=== PATIENT | female | born 1955 | race Caucasian/White ===

== ENCOUNTER → 2020-08-03 13:44 | Outpatient (BNVA) | payer MEDICARE, MEDICAID, SELFPAY | PROVIDERS: PCP Internal Medicine; Visit Provider Internal Medicine | DX: I26.99 Other pulmonary embolism without acute cor pulmonale (principal); Z51.81 Encounter for therapeutic drug level monitoring; Z79.01 Long term (current) use of anticoagulants | CPT/HCPCS: 85610; 99211 ==

== ENCOUNTER 2020-09-21 15:31 | Outpatient (REF) | payer MEDICARE, MEDICAID, SELFPAY ==
[2020-09-21 17:14] LABS: MANUAL DIFF FLAG NO
[2020-09-21 17:28] LABS: Basophils Absolute Auto 0.1 X10*3/uL (0.0-0.2); Basophils Percent Auto 0.8 % (0-2); Eosinophils Absolute Auto 0.1 X10*3/uL (0.0-0.4); Hematocrit 40.8 % (37-47); Hemoglobin 13.6 g/dl (12.0-16.0); Imm Gran Abs Auto 0.02 X10*3/uL (0.00-0.03); Imm Gran Pct Auto 0.3 % (0.0-0.4); Lymphocytes Absolute Auto 2.4 X10*3/uL (1.2-4.9); Lymphocytes Percent Auto 38.9 % (20-40); Mean Corpuscular HGB Conc 33.3 g/dl (31.0-35.0); Mean Corpuscular Hemoglobin 29.5 pg (27.0-33.0); Mean Corpuscular Volume 88.5 fL (80-98); Mean Platelet Volume 10.8 fL (9.4-12.3); Monocytes Absolute Auto 0.4 X10*3/uL (0.1-1.2); Monocytes Percent Auto 6.1 % (2-11); Neutrophils Absolute Auto 3.1 X10*3/uL (2.0-8.3); Neutrophils Percent Auto 51.9 % (45-73); Platelet Count 238 X10*3/uL (160-400); Red Blood Count 4.61 X10*6/uL (4.20-5.50); Red Cell Distribution Width 13.2 % (11.0-16.0)
[2020-09-21 17:44] LABS: D Dimer < 200 NG/ML
[2020-09-21 18:14] LABS: Alanine Aminotransferase 25 U/L (0-31); Albumin Level 4.2 g/dL (3.5-5.0); Alkaline Phosphatase 54 U/L (39-117); Anion Gap 13 (12-20); Aspartate Amino Transferase 26 U/L (5-31); Bilirubin Total 0.6 mg/dL (0.0-1.0); Blood Urea Nitrogen 16 mg/dL (9-16); Calcium 9.2 mg/dL (8.4-10.2); Carbon Dioxide 26 mmol/L (22-29); Chloride 107 mmol/L (96-108); Estimated Glomerular Filt Rate 54; Glucose Random 93 mg/dL (60-115); Potassium 4.6 mmol/l (3.3-5.1); Sodium 141 mmol/L (135-145); Total Protein 7.3 g/dL (6.5-8.0)
[2020-09-22 16:22] LABS: Ferritin 193 ng/mL (10-250)
== END 2020-09-21 15:32 | disposition home or self-care (01) ==
LOC: CF 15:31
PROVIDERS: PCP Internal Medicine; Visit Provider Internal Medicine
DX: D68.61 Antiphospholipid syndrome (principal); I26.99 Other pulmonary embolism without acute cor pulmonale; Z51.81 Encounter for therapeutic drug level monitoring; Z79.01 Long term (current) use of anticoagulants
CPT/HCPCS: 36415; 80053; 82728; 85025; 85379; 85610; 99211

== ENCOUNTER → 2020-10-02 13:49 | Outpatient (BNVA) | payer MEDICARE, MEDICAID, SELFPAY | PROVIDERS: PCP Internal Medicine; Visit Provider Internal Medicine | DX: I26.99 Other pulmonary embolism without acute cor pulmonale (principal); Z51.81 Encounter for therapeutic drug level monitoring; Z79.01 Long term (current) use of anticoagulants | CPT/HCPCS: 85610; 99211 ==

== ENCOUNTER → 2020-10-16 14:54 | Outpatient (BNVA) | payer MEDICARE, MEDICAID, SELFPAY | PROVIDERS: PCP Internal Medicine; Visit Provider Internal Medicine | DX: I26.99 Other pulmonary embolism without acute cor pulmonale (principal); Z51.81 Encounter for therapeutic drug level monitoring; Z79.01 Long term (current) use of anticoagulants | CPT/HCPCS: 85610; 99211 ==

== ENCOUNTER → 2020-11-18 15:49 | Outpatient (BNVA) | payer MEDICARE, MEDICAID, SELFPAY | PROVIDERS: PCP Internal Medicine; Visit Provider Internal Medicine | DX: I26.99 Other pulmonary embolism without acute cor pulmonale (principal); Z51.81 Encounter for therapeutic drug level monitoring; Z79.01 Long term (current) use of anticoagulants | CPT/HCPCS: 85610; 99211 ==

== ENCOUNTER → 2020-11-25 15:30 | Outpatient (BNVA) | payer MEDICARE, MEDICAID, SELFPAY | PROVIDERS: PCP Internal Medicine; Visit Provider Internal Medicine | DX: I26.99 Other pulmonary embolism without acute cor pulmonale (principal); Z51.81 Encounter for therapeutic drug level monitoring; Z79.01 Long term (current) use of anticoagulants | CPT/HCPCS: 85610; 99211 ==

== ENCOUNTER → 2020-12-29 15:22 | Outpatient (BNVA) | payer MEDICARE, MEDICAID, SELFPAY | PROVIDERS: PCP Internal Medicine; Visit Provider Internal Medicine | DX: I26.99 Other pulmonary embolism without acute cor pulmonale (principal); Z79.01 Long term (current) use of anticoagulants; Z51.81 Encounter for therapeutic drug level monitoring | CPT/HCPCS: 85610; 99211 ==

== ENCOUNTER → 2021-01-25 15:00 | Outpatient (BNVA) | payer MEDICARE, MEDICAID, SELFPAY | PROVIDERS: PCP Internal Medicine; Visit Provider Internal Medicine | DX: I26.99 Other pulmonary embolism without acute cor pulmonale (principal); Z51.81 Encounter for therapeutic drug level monitoring; Z79.01 Long term (current) use of anticoagulants | CPT/HCPCS: 85610; 99211 ==

== ENCOUNTER → 2021-03-05 14:32 | Outpatient (BNVA) | payer MEDICARE, MEDICAID, SELFPAY | PROVIDERS: PCP Internal Medicine; Visit Provider Internal Medicine | DX: I26.99 Other pulmonary embolism without acute cor pulmonale (principal); Z51.81 Encounter for therapeutic drug level monitoring; Z79.01 Long term (current) use of anticoagulants | CPT/HCPCS: 85610; 99211 ==

== ENCOUNTER → 2021-04-22 10:20 | Outpatient (BNV) | payer MEDICARE, MEDICAID, SELFPAY | PROVIDERS: PCP Internal Medicine; Visit Provider Internal Medicine Medical Oncology | DX: R91.8 Other nonspecific abnormal finding of lung field (principal); Z86.711 Personal history of pulmonary embolism; Z79.01 Long term (current) use of anticoagulants | CPT/HCPCS: 99213; 99214 ==

== ENCOUNTER → 2021-04-28 13:19 | Outpatient (BNVA) | payer MEDICARE, MEDICAID, SELFPAY | PROVIDERS: PCP Internal Medicine; Visit Provider Internal Medicine | DX: I26.99 Other pulmonary embolism without acute cor pulmonale (principal); Z51.81 Encounter for therapeutic drug level monitoring; Z79.01 Long term (current) use of anticoagulants | CPT/HCPCS: 85610; 99211 ==

== ENCOUNTER → 2021-05-27 13:02 | Outpatient (BNVA) | payer MEDICARE, MEDICAID, SELFPAY | PROVIDERS: PCP Internal Medicine; Visit Provider Internal Medicine | DX: I26.99 Other pulmonary embolism without acute cor pulmonale (principal); Z51.81 Encounter for therapeutic drug level monitoring; Z79.01 Long term (current) use of anticoagulants | CPT/HCPCS: 85610; 99211 ==

== ENCOUNTER → 2021-06-24 15:35 | Outpatient (BNVA) | payer MEDICARE, MEDICAID, SELFPAY | PROVIDERS: PCP Internal Medicine; Visit Provider Internal Medicine | DX: I26.99 Other pulmonary embolism without acute cor pulmonale (principal); Z51.81 Encounter for therapeutic drug level monitoring; Z79.01 Long term (current) use of anticoagulants | CPT/HCPCS: 85610; 99211 ==

== ENCOUNTER → 2021-07-22 15:48 | Outpatient (BNVA) | payer MEDICARE, MEDICAID, SELFPAY | PROVIDERS: PCP Internal Medicine; Visit Provider Internal Medicine | DX: I26.99 Other pulmonary embolism without acute cor pulmonale (principal); Z51.81 Encounter for therapeutic drug level monitoring; Z79.01 Long term (current) use of anticoagulants | CPT/HCPCS: 85610; 99211 ==

== ENCOUNTER → 2021-08-05 15:07 | Outpatient (BNVA) | payer MEDICARE, MEDICAID, SELFPAY | PROVIDERS: PCP Internal Medicine; Visit Provider Internal Medicine | DX: I26.99 Other pulmonary embolism without acute cor pulmonale (principal); Z51.81 Encounter for therapeutic drug level monitoring; Z79.01 Long term (current) use of anticoagulants | CPT/HCPCS: 85610; 99211 ==

== ENCOUNTER → 2021-09-06 14:10 | Outpatient (BNVA) | payer MEDICARE, MEDICAID, SELFPAY | PROVIDERS: PCP Internal Medicine; Visit Provider Internal Medicine | DX: I26.99 Other pulmonary embolism without acute cor pulmonale (principal); Z51.81 Encounter for therapeutic drug level monitoring; Z79.01 Long term (current) use of anticoagulants | CPT/HCPCS: 85610; 99211 ==

== ENCOUNTER → 2021-09-21 14:55 | Outpatient (BNVA) | payer MEDICARE, MEDICAID, SELFPAY | PROVIDERS: PCP Internal Medicine; Visit Provider Internal Medicine | DX: I26.99 Other pulmonary embolism without acute cor pulmonale (principal); Z51.81 Encounter for therapeutic drug level monitoring; Z79.01 Long term (current) use of anticoagulants | CPT/HCPCS: 85610; 99211 ==

== ENCOUNTER → 2021-10-21 13:06 | Outpatient (BNVA) | payer MEDICARE, MEDICAID, SELFPAY | PROVIDERS: PCP Internal Medicine; Visit Provider Internal Medicine | DX: I26.99 Other pulmonary embolism without acute cor pulmonale (principal); Z51.81 Encounter for therapeutic drug level monitoring; Z79.01 Long term (current) use of anticoagulants | CPT/HCPCS: 85610; 99211 ==

== ENCOUNTER 2021-11-05 12:12 | Outpatient (REF) | payer MEDICARE, MEDICAID, SELFPAY ==
--- NOTE | 2021-11-05 16:17 | MHC.AU.HAS ---
Hearing Aid Evaluation Date of Visit: 11/05/21 Historical Information: Description of Hearing: Mild sloping to severe sensorineural hearing loss bilaterally. Summary: Binaural amplification is recommended to help facilitate improved communication based on the type and degree of Ms. Velez's hearing loss and her shared listening needs. Discussed hearing aid options. She is interested in rechargeable [id number] style hearing aids. Hearing Aid Prescription: Based on the individual?s shared listening needs, communication environments, dexterity, desire for connectivity, and personal preferences, the following prescription for amplification has been made: Right ear: Laboratory Analyst: Phonak Model: Audeo P70-R Battery Size: Rechargeable Color: P4 Outside Plant Engineer: 1 P Type of Dome: Power Left ear: Left ear prescription to be same as Right Hearing Aid above: Laboratory Analyst: Phonak Model: Audeo P70-R Battery Size: Rechargeable Color: P4 Outside Plant Engineer: 1 P Type of Dome: Power Plan of Care: Medical Clearance to be requested from PCP/ENT. Hearing Instrument Fitting to be scheduled when materials arrive. Hearing aids will be ordered once medical clearance is received. Primary Diagnosis: H90.3 Bilateral Sensorineural Hearing Loss Signature: Provider: Ana Lilia Ramirez, CCC-A
--- NOTE | 2021-11-05 16:18 | MHC.AU.ANR ---
Adult Audiological Evaluation Date of Visit: 11/05/21 Reason for Appointment: Audiological evaluation due to concern for decreased hearing and history of hearing loss. Ms. Velez reports that she has previously been diagnosed with hearing loss bilaterally and previously used hearing aids that she obtained through a dispenser in 2013. She notes that she has never been happy with these aids and has been hesitant to try a new pair. She feels her hearing has gradually been getting worse. She notes that her hearing loss has been impacting her social life significantly. 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 Skin cancer treated surgically. Antiphospholipid syndrome, an autoimmune disorder which caused blood clots in her lungs on two occasions. Internal bleeding leading to intestinal surgery in 2013. Allergies: Penicillins Medication List: Warfarin, Metoprolol, Paxil, Ativan PRN Otoscopy: Right Ear: Unremarkable Left Ear: Unremarkable Tympanometry: Tympanometry performed due to: To assess integrity of the middle ear system Right Ear: Normal Middle Ear System (Type A) Left Ear: Normal Middle Ear System (Type A) Hearing Evaluation: Transducer(s) Used: Insert Earphones, Bone Conduction Method: Conventional Audiometry Stimuli Used: Pure Tones Right Ear: Description of Hearing: Mild sloping to severe sensorineural hearing loss from 250-8000 Hz. Left Ear: Description of Hearing: Mild sloping to severe sensorineural hearing loss from 250-8000 Hz. Speech Recognition Threshold (SRT): Method Used: Monitored Live Voice Stimuli Used: Spondee Words Right Ear: 40 dBHL Left Ear: 40 dBHL Word Discrimination: Method: Recorded Lists Word Lists Used: NU-6 Right Ear: 56% at 80 dBHL, 72% 90 dBHL Left Ear: 64% at 90 dBHL Recommendations: Audiological re-evaluation in one year. Trial with amplification is recommended. Medical clearance from a physician is required before fitting. Patient's current health insurance provides hearing aid coverage. Discussed hearing aid options. She is interested in rechargeable VIOLA style hearing aids. Hearing aids will be ordered once medical clearance is received. Diagnosis: Primary Diagnosis: H90.3 Bilateral Sensorineural Hearing Loss Services Performed: Services Performed: Comprehensive Audiological Evaluation (CPT 89348) Tympanometry (CPT 83950) Signature: Provider: Ana Lilia Ramirez, CCC-A
--- NOTE | 2021-11-12 11:19 | MHC.AU.MED ---
Medical Clearance for Hearing Instrumentation Date: 11/12/21 Patient Name: Kacey Velez Date of : 1955 Referring Provider: Vincent Mclaughlin MD We have seen your patient on 11/05/21 and have determined that they are a candidate for amplification (See accompanying report). Specifically, they would benefit from: Hearing aid use in both ears There is a statute that addresses Medical Evaluation Requirements prior to fitting a patient with a hearing aid. According to [place] statute 265 CMR:6.03(1), (a) General. Except as provided in 265 CMR 6.03(1)(b), a deaf and hard of hearing teacher shall not sell a hearing aid unless the prospective user has presented to the deaf and hard of hearing teacher a written statement signed by a licensed physician that states that the patient's hearing loss has been medically evaluated and the patient may be considered a candidate for a hearing aid. The medical evaluation must have taken place within the preceding six months. Please note: Due to the [place] Statute referenced above, we cannot accept a signature other than that of a licensed physician. ELECTRICAL TESTER BATTERY and PA signatures cannot be accepted. I am in agreement with the above recommendation. There is no medical contraindication for hearing instrumentation. Physician Signature Date Physician Name (Printed)
== END 2021-11-05 12:13 | disposition home or self-care (01) ==
LOC: HO.SH 12:12
PROVIDERS: Visit Provider Internal Medicine Medical Oncology
DX: Z46.1 Encounter for fitting and adjustment of hearing aid (principal)
CPT/HCPCS: 92557; 92567; 92591

== ENCOUNTER → 2021-11-23 09:18 | Outpatient (BNVA) | payer MEDICARE, MEDICAID, SELFPAY | PROVIDERS: PCP Internal Medicine; Visit Provider Internal Medicine | DX: I26.99 Other pulmonary embolism without acute cor pulmonale (principal); Z51.81 Encounter for therapeutic drug level monitoring; Z79.01 Long term (current) use of anticoagulants | CPT/HCPCS: 85610; 99211 ==

== ENCOUNTER 2021-12-01 09:25 | Outpatient (REF) | payer MEDICARE, MEDICAID, SELFPAY | END 2021-12-01 09:26 | disposition home or self-care (01) | LOC: HO.HAP 09:25 | PROVIDERS: Visit Provider Internal Medicine Medical Oncology | DX: Z46.1 Encounter for fitting and adjustment of hearing aid (principal); H90.3 Sensorineural hearing loss, bilateral; I26.99 Other pulmonary embolism without acute cor pulmonale; Z51.81 Encounter for therapeutic drug level monitoring; Z79.01 Long term (current) use of anticoagulants | CPT/HCPCS: 85610; 99211; V5011; V5020; V5160; V5261 ==

== ENCOUNTER 2021-12-15 13:53 | Outpatient (REF) | payer MEDICARE, MEDICAID, SELFPAY | END 2021-12-15 13:54 | disposition home or self-care (01) | LOC: HO.HAP 13:53 | PROVIDERS: Visit Provider Internal Medicine | DX: H90.3 Sensorineural hearing loss, bilateral (principal); I26.99 Other pulmonary embolism without acute cor pulmonale; Z51.81 Encounter for therapeutic drug level monitoring; Z79.01 Long term (current) use of anticoagulants | CPT/HCPCS: 85610; 99211 ==

== ENCOUNTER → 2022-01-05 15:16 | Outpatient (BNVA) | payer MEDICARE, MEDICAID, SELFPAY | PROVIDERS: PCP Internal Medicine; Visit Provider Internal Medicine | DX: I26.99 Other pulmonary embolism without acute cor pulmonale (principal); Z79.01 Long term (current) use of anticoagulants; Z51.81 Encounter for therapeutic drug level monitoring | CPT/HCPCS: 85610; 99211 ==

== ENCOUNTER → 2022-01-19 15:14 | Outpatient (BNVA) | payer MEDICARE, MEDICAID, SELFPAY | PROVIDERS: PCP Internal Medicine; Visit Provider Internal Medicine | DX: I26.99 Other pulmonary embolism without acute cor pulmonale (principal); Z79.01 Long term (current) use of anticoagulants; Z51.81 Encounter for therapeutic drug level monitoring | CPT/HCPCS: 85610; 99211 ==

== ENCOUNTER 2022-02-09 14:59 | Outpatient (REF) | payer MEDICARE, MEDICAID, SELFPAY ==
[2022-02-09 15:30] LABS: Prothrombin Time 63.9 SEC (9.9-13.0)
[2022-02-09 16:01] LABS: INTERNATIONAL NORM RATIO 5.4 (0.9-1.1)
== END 2022-02-09 15:00 | disposition home or self-care (01) ==
LOC: HO.LAB 14:59
PROVIDERS: PCP Internal Medicine; Visit Provider Internal Medicine
DX: I26.99 Other pulmonary embolism without acute cor pulmonale (principal); Z51.81 Encounter for therapeutic drug level monitoring; Z79.01 Long term (current) use of anticoagulants
CPT/HCPCS: 36415; 85610; 99212

== ENCOUNTER 2022-02-11 15:11 | Outpatient (REF) | payer MEDICARE, MEDICAID, SELFPAY ==
[2022-02-11 16:27] LABS: Anion Gap 10 (12-20); Blood Urea Nitrogen 14 mg/dL (9-16); Calcium 9.8 mg/dL (8.4-10.2); Carbon Dioxide 28 mmol/L (22-29); Chloride 108 mmol/L (96-108); Estimated Glomerular Filt Rate 55; Glucose Random 108 mg/dL (60-115); Potassium 4.3 mmol/L (3.3-5.1); Sodium 142 mmol/L (135-145)
== END 2022-02-11 15:12 | disposition home or self-care (01) ==
LOC: HO.LAB 15:11
PROVIDERS: PCP Internal Medicine; Visit Provider Internal Medicine
DX: I26.99 Other pulmonary embolism without acute cor pulmonale (principal); Z51.81 Encounter for therapeutic drug level monitoring; Z79.01 Long term (current) use of anticoagulants
CPT/HCPCS: 36415; 80048; 85610; 99211

== ENCOUNTER → 2022-02-15 15:44 | Outpatient (BNVA) | payer MEDICARE, MEDICAID, SELFPAY | PROVIDERS: PCP Internal Medicine; Visit Provider Internal Medicine | DX: I26.99 Other pulmonary embolism without acute cor pulmonale (principal); Z79.01 Long term (current) use of anticoagulants; Z51.81 Encounter for therapeutic drug level monitoring | CPT/HCPCS: 85610; 99211 ==

== ENCOUNTER → 2022-02-22 15:16 | Outpatient (BNVA) | payer MEDICARE, MEDICAID, SELFPAY | PROVIDERS: PCP Internal Medicine; Visit Provider Internal Medicine | DX: I26.99 Other pulmonary embolism without acute cor pulmonale (principal); Z79.01 Long term (current) use of anticoagulants; Z51.81 Encounter for therapeutic drug level monitoring | CPT/HCPCS: 85610; 99211 ==

== ENCOUNTER → 2022-02-25 15:00 | Outpatient (BNVA) | payer MEDICARE, MEDICAID, SELFPAY | PROVIDERS: PCP Internal Medicine; Visit Provider Internal Medicine | DX: I26.99 Other pulmonary embolism without acute cor pulmonale (principal); Z79.01 Long term (current) use of anticoagulants; Z51.81 Encounter for therapeutic drug level monitoring | CPT/HCPCS: 85610; 99211 ==

== ENCOUNTER → 2022-03-02 14:56 | Outpatient (BNVA) | payer MEDICARE, MEDICAID, SELFPAY | PROVIDERS: PCP Internal Medicine; Visit Provider Internal Medicine | DX: I26.99 Other pulmonary embolism without acute cor pulmonale (principal); Z79.01 Long term (current) use of anticoagulants; Z51.81 Encounter for therapeutic drug level monitoring | CPT/HCPCS: 85610; 99211 ==

== ENCOUNTER 2022-03-09 21:43 | Emergency (ER) | payer MEDICARE, MEDICAID, SELFPAY ==
--- NOTE | ~2022-03-09 | XR_ITS ---
EXAMINATION: XR CHEST CLINICAL INFORMATION: Cough COMPARISON: Chest CT 06/05/2018 TECHNIQUE: 2 views of the chest were obtained. FINDINGS: There is streaky opacities in the retrocardiac left lower lobe. No pleural effusion or pneumothorax. Normal pulmonary vascularity. Normal heart size. Mild degenerative changes of the thoracic spine. XR/XR chest 2V IMPRESSION: Streaky retrocardiac left lower lobe opacity could represent atelectasis, aspiration, or pneumonia. The appearance is new/increased compared to the coremaking supervisor from the chest CT 06/06/2018.
[2022-03-09 22:46] VITALS: BP 137/65; PULSE 86; RESP 18; TEMP 36.6; O2SAT 97; BMI 32.0
[2022-03-09 23:16] LABS: COVID-19 Test Negative (Negative); IDNOW Serial# 16C4AD1C; Influenza A Negative (Negative); Influenza B2 Negative (Negative)
--- NOTE | 2022-03-09 23:18 | ED_ITS ---
HPI - URI/Sore Throat General Chief Complaint: Upper Respiratory Symptoms Stated Complaint: cough, congested Time Seen by Provider: 03/09/22 23:07 Source: patient Mode of arrival: ambulatory History of Present Illness HPI Narrative: 66-year-old female with a past medical history of anxiety, depression, DVT/PE on Coumadin, antiphospholipid syndrome, presenting to the ED complaining of worsening cough x1 week with chest congestion. Denies fever, chills, sore throat, chest pain, shortness of breath, abdominal pain, pedal edema/calf pain. Reports compliance with her Coumadin MD elicited complaint: cough Onset (ago): week(s) Related Data Home Medications Medication Instructions Recorded Confirmed lorazepam 0.5 mg tablet 0.5 mg PO TID PRN Anxiety 10/02/20 03/02/22 metoprolol succinate 25 mg 25 mg PO DAILY 10/02/20 03/02/22 tablet,extended release 24 hr paroxetine HCl 10 mg/5 mL oral 10 mg PO DAILY 10/02/20 03/02/22 suspension Previous Rx's Medication Instructions Recorded warfarin 5 mg tablet 5 mg PO DAILY #90 tabs 08/03/20 albuterol sulfate 90 mcg/actuation 2 puff inhalation Q4-6H PRN 03/10/22 aerosol inhaler shortness of breath or wheezing #6.7 grams amoxicillin 400 mg-potassium 10.9375 ml PO BID 7 days #153.125 03/10/22 clavulanate 57 mg/5 mL oral mL suspension doxycycline calcium 50 mg/5 mL 100 mg (10 mL) PO BID 7 days #140 03/10/22 oral syrup mL Allergies Allergy/AdvReac Type Severity Reaction Status Date / Time Penicillins [PENICILLINS] Allergy Unknown AGITATION Verified 03/09/22 22:48 ANTIBIOTIC X2 Allergy Unknown PT UNSURE Uncoded 03/09/22 22:48 OF NAMES Review of Systems Review of Systems: Constitutional: No Fever, No Chills ENT/Mouth: No Ear Pain, No Nasal Congestion, No Sinus Pain, No Hoarseness, No sore throat, No Rhinorrhea, No Swallowing Difficulty Cardiovascular: No Chest Pain, No SOB Respiratory: + Cough, No Sputum, No Wheezing Gastrointestinal: No Nausea, No Vomiting, No Diarrhea, No Constipation, No Abdominal pain Genitourinary: No Dysuria, No Urinary Frequency, No Hematuria, No Flank Pain Musculoskeletal: No joint pain, No Myalgias, No Joint Swelling Skin: No Skin Lesions, No rash Neuro: No Weakness, No Numbness, No Paresthesias Yes all other systems are reviewed and are negative [facility]LY [facility] Past Medical History Attestation statement: The following information was validated with the patient. Medical History Asthma Bruising Uterine cancer Surgical History H/O: hysterectomy Family History Family History Brother Cancer Lymphoma Father Brain cancer Sister Lung cancer Mother Dementia Social History Social History Household Members: None Housing: Apartment Are you a primary geriatric care manager to a significant other at home: No Do you presently have visiting nurse or other home services: No Alcohol intake: never Patient Tobacco Use Status: Never used Tobacco Advance Directives: No Advance Directives Information Provided: No service: No Current occupational status: unemployed Physical Exam Vital Signs: Vital Signs: Last Vital Signs Temp 98 F 03/09/22 22:46 Pulse 97 03/09/22 23:47 Resp 17 03/09/22 23:47 BP 125/60 03/09/22 23:47 Pulse Ox 97 03/09/22 23:47 O2 Del Method 03/09/22 23:47 BMI result Body Mass Index 32.0 Const: General: cooperative, healthy appearing, no acute distress, alert and awake Orientation/consciousness: patient oriented x3 Limitations: no limitations HEENT: Head: Yes normal to inspection and Yes atraumatic Ears: hearing grossly normal bilaterally General nose exam: Normal external nose present Face and sinus: Yes normal facial exam Eyes: General: appearance normal, both eyes and all related structures EOM: EOMs intact bilaterally Neck: Neck: Yes normal visual inspection and Yes no meningeal signs Resp: Effort & Inspection: normal respiratory effort and no respiratory distress Auscultation: rhonchi lower bilaterally (End expiatory) and lung sounds not diminished Cardio: Rate: regular rate Heart sounds: S1 normal heart sound present and S2 normal heart sound present GI: Inspection: Yes normal to inspection Palpation (GI): Soft to palpation, nontender, no guarding and not rigid Skin: Rashes: no rashes Wounds: no wounds Neuro: General: patient oriented x3, tone normal and no meningeal signs Gait exam (Neuro): Normal gait present Extrem: General: Yes normal to inspection, Yes no pedal edema and Yes no calf tenderness Course Course Course Narrative: -4333--COVID-19 and influenza negative -0014--XR chest 2V IMPRESSION: Streaky retrocardiac left lower lobe opacity could represent atelectasis, aspiration, or pneumonia. The appearance is new/increased compared to the mesmerist from the chest CT 06/06/2018. >> labs including lactic and blood cultures ordered. Low suspicion for sepsis Patient can only take liquid medication. Liquid doxycycline and Augmentin sent to the pharmacy for patient -0115--ED care transferred to Dr. Gomez pending labs and anticipated discharge home MDM - URI/Sore Throat MDM Narrative Medical decision making narrative: 66-year-old female with a past medical history of anxiety, depression, DVT/PE on Coumadin, antiphospholipid syndrome, presenting to the ED complaining of worsening cough x1 week with chest congestion. On exam vital signs stable, NAD, nontoxic appearing, lungs with good air movement and end expiratory rhonchi. No pedal edema/calf tenderness. Concern for viral syndrome vs pneumonia vs bronchitis. Lower concern for ACS/PE as patient is anticoagulated. Plan: COVID-19/influenza testing, CXR Differential Diagnosis Differential diagnosis: Likely upper respiratory infection, viral infection, bronchitis and influenza Medical Records Attestation: I reviewed the patient's medical records. Lab Data Attestation: I reviewed the patient's lab results. Labs: Lab Results 03/09/22 03/09/22 Range/Units 22:50 22:50 COVID-19 (BERNARDA) Negative (Negative) COVID-19 Clin Com See Note Influenza Type A (MOISES) Negative (Negative) Influenza Type B (MOISES) Negative (Negative) Influenza A & B Note See Note Discharge Plan Discharge Clinical Impression: Pneumonia Patient Disposition: Still a Patient Instructions: Community Acquired Pneumonia (ED) Additional Instructions: You have pneumonia. Please take antibiotics as prescribed. In addition use inhaler as needed for shortness of breath Please have close follow-up with her doctor. If symptoms persist or worsen, you develops fever unresolved with medications, chest pain or shortness of breath is return to the ED Prescriptions: New amoxicillin-pot clavulanate 400-57 mg/5 mL suspension for reconstitution 10.9375 ml PO BID 7 Days Qty: 153.125 0RF doxycycline calcium 50 mg/5 mL syrup 100 mg PO BID 7 Days Qty: 140 0RF albuterol sulfate 90 mcg/actuation HFA aerosol inhaler 2 puff inhalation Q4-6H PRN (Reason: shortness of breath or wheezing) Qty: 6.7 0RF No Action warfarin 5 mg tablet 5 mg PO DAILY Qty: 90 0RF Protocol: Dose Management Condition: Monday (Week One) Dose/Route: 2.5 mg Instruction: 0.5 x 5 mg tablets Condition: Monday Dose/Route: 2.5 mg Instruction: 0.5 x 5 mg tablets Condition: Monday Dose/Route: 5 mg Instruction: 1 x 5 mg tablet Condition: Monday Dose/Route: 2.5 mg Instruction: 0.5 x 5 mg tablets Condition: Dose/Route: 2.5 mg Instruction: 0.5 x 5 mg tablets Condition: Monday Dose/Route: 5 mg Instruction: 1 x 5 mg tablet Condition: Monday Dose/Route: 2.5 mg Instruction: 0.5 x 5 mg tablets Condition: Monday (Week Two) Dose/Route: 2.5 mg Instruction: 0.5 x 5 mg tablets Condition: Monday Dose/Route: 2.5 mg Instruction: 0.5 x 5 mg tablets Condition: Monday Dose/Route: 5 mg Instruction: 1 x 5 mg tablet Condition: Monday Dose/Route: 2.5 mg Instruction: 0.5 x 5 mg tablets Condition: Dose/Route: 2.5 mg Instruction: 0.5 x 5 mg tablets Condition: Monday Dose/Route: 5 mg Instruction: 1 x 5 mg tablet Condition: Monday Dose/Route: 2.5 mg Instruction: 0.5 x 5 mg tablets Protocol Text: Adjustment Start Date: Monday03/02/22 INR Value: 2.7 INR Date: 03/02/22 Recheck Date: 03/16/22 Paxil 10 mg/5 mL suspension 10 mg PO DAILY metoprolol succinate 25 mg tablet extended release 24 hr 25 mg PO DAILY lorazepam 0.5 mg tablet 0.5 mg PO TID PRN (Reason: Anxiety) Referrals: Arnie Bhatia MD [Primary Care Provider] - 2 days
[2022-03-09 23:37] VITALS: PULSE 96; RESP 18; O2SAT 97
[2022-03-09] MEDS: Albuterol/Iprat 2.5/0.5MG 3 ML AMPUL.NEB INHALE (23:37)
[2022-03-09 23:47] VITALS: BP 125/60; PULSE 97; RESP 17; O2SAT 97
[2022-03-10 01:05] LABS: Basophils Percent Auto 0.3 % (0-2); Eosinophils Absolute Auto 0.3 X10*3/uL (0.0-0.4); Eosinophils Percent Auto 2.6 % (0-4); Hemoglobin 12.3 g/dl (12.0-16.0); Imm Gran Abs Auto 0.03 X10*3/uL (0.00-0.03); Imm Gran Pct Auto 0.3 % (0.0-0.4); Lymphocytes Absolute Auto 2.4 X10*3/uL (1.2-4.9); Lymphocytes Percent Auto 24.2 % (20-40); MANUAL DIFF FLAG NO; Mean Corpuscular HGB Conc 33.2 g/dl (31.0-35.0); Mean Corpuscular Hemoglobin 29.1 pg (27.0-33.0); Mean Corpuscular Volume 87.7 fL (80.0-98.0); Mean Platelet Volume 10.4 fL (9.4-12.3); Monocytes Absolute Auto 0.7 X10*3/uL (0.1-1.2); Monocytes Percent Auto 6.8 % (2-11); Neutrophils Absolute Auto 6.4 x10*3/uL (2.0-8.3); Neutrophils Percent Auto 65.8 % (45-73); Platelet Count 257 X10*3/uL (160-400); Red Blood Count 4.22 X10*6/uL (4.20-5.50); Red Cell Distribution Width 13.8 % (11.0-16.0); White Blood Count 9.7 X10*3/uL (4.8-10.8)
[2022-03-10 01:11] LABS: INTERNATIONAL NORM RATIO 2.9 (0.9-1.1); Prothrombin Time 34.2 SEC (9.9-13.0)
--- NOTE | 2022-03-10 01:11 | PC.NURSE ---
REPORT GIVEN AND CARE TRANSFERRED TO [facility].
[2022-03-10 01:16] LABS: Lactic Acid 1.4 mmol/L (0.5-2.0)
[2022-03-10 01:20] LABS: Anion Gap 13 (12-20); Blood Urea Nitrogen 16 mg/dL (9-16); Calcium 8.9 mg/dL (8.4-10.2); Carbon Dioxide 25 mmol/L (22-29); Chloride 103 mmol/L (96-108); Estimated Glomerular Filt Rate 52; Glucose Random 118 mg/dL (60-115); Potassium 3.5 mmol/L (3.3-5.1); Sodium 137 mmol/L (135-145)
== END 2022-03-10 02:16 | disposition home or self-care (01) ==
PROVIDERS: Physician Assistant; Emergency Provider Internal Medicine; PCP Internal Medicine
DX: J18.9 Pneumonia, unspecified organism (principal); R05.9 Cough, unspecified; F33.1 Major depressive disorder, recurrent, moderate; Z20.822 Contact with and (suspected) exposure to COVID-19; Z79.01 Long term (current) use of anticoagulants; Z79.899 Other long term (current) drug therapy
CPT/HCPCS: 36415; 71046; 80048; 83605; 85025; 85610; 87040; 87502; 87635; 94640; 99284

== ENCOUNTER → 2022-03-16 14:58 | Outpatient (BNVA) | payer MEDICARE, MEDICAID, SELFPAY | PROVIDERS: PCP Internal Medicine; Visit Provider Internal Medicine | DX: I26.99 Other pulmonary embolism without acute cor pulmonale (principal); Z79.01 Long term (current) use of anticoagulants; Z51.81 Encounter for therapeutic drug level monitoring | CPT/HCPCS: 85610; 99211 ==

== ENCOUNTER → 2022-03-23 14:56 | Outpatient (BNVA) | payer MEDICARE, MEDICAID, SELFPAY | PROVIDERS: PCP Internal Medicine; Visit Provider Internal Medicine | DX: I26.99 Other pulmonary embolism without acute cor pulmonale (principal); Z79.01 Long term (current) use of anticoagulants; Z51.81 Encounter for therapeutic drug level monitoring | CPT/HCPCS: 85610; 99211 ==

== ENCOUNTER → 2022-03-30 15:14 | Outpatient (BNVA) | payer MEDICARE, MEDICAID, SELFPAY | PROVIDERS: PCP Internal Medicine; Visit Provider Internal Medicine | DX: I26.99 Other pulmonary embolism without acute cor pulmonale (principal); Z51.81 Encounter for therapeutic drug level monitoring; Z79.01 Long term (current) use of anticoagulants | CPT/HCPCS: 85610; 99211 ==

== ENCOUNTER 2022-04-04 08:35 | Outpatient (REF) | payer MEDICARE, MEDICAID, SELFPAY ==
--- NOTE | ~2022-04-04 | CT_ITS ---
EXAMINATION: CT CHEST WITH CONTRAST CLINICAL INFORMATION: Pulmonary nodule. Recent pneumonia COMPARISON: 06/06/2018 TECHNIQUE: Multidetector volumetric CT imaging of the chest was obtained after the administration of 65 mL of Omnipaque 350 intravenous contrast without immediate adverse reactions. Axial MIP volume rendering provided. Sagittal and coronal reformatted images were obtained. This CT examination was performed using dose optimization techniques as appropriate, variously including the following: *Automated exposure control *Adjustment of mA and/or kV according to patient size (this includes techniques or standardized protocols for targeted exams where dose is matched to indication/reason for exam; i.e. extremities or head) *Use of iterative reconstruction technique DLP: 118 mGy-cm FINDINGS: THREAD PULLER: Unremarkable LUNGS: There are linear scarring stable since previous study in the right middle lobe and lingula. Seen previously reticulonodular in the right upper lobe significantly diminished, barely seen on image 26 series 4. MEDIASTINUM: There is 1.4 cm nodule in the left thyroid lobe. There is no mediastinal or hilar lymphadenopathy. Thoracic aorta is not dilated and there is no pulmonary hypertension. There is no cardiomegaly or pericardial effusion. PLEURA: There is no pleural effusion. No pleural mass or thickening. AXILLA: No lymphadenopathy. UPPER ABDOMEN: There are multiple low-attenuation lesions in the liver most likely hemangiomas, with the largest seen in the left lobe, measured 2.0 cm, and in the left lobe lesion associated with calcifications measured 2.2 cm there is superficial flash hemangioma in the right lobe and heterogeneous hemangioma in the right lobe close to the gallbladder fossa. Partially visualized right kidney revealed 1.5 cm cyst. OSSEOUS STRUCTURES: Unremarkable. CT/CT chest w con IMPRESSION: Improvement of right upper lobe nodule and linear scarring by lateral. Hemangiomas in the liver Low-attenuation lesion in the left thyroid lobe Simple cyst in right kidney Fleischner guidelines were followed.
[2022-04-04] MEDS: iohexoL 350 MG/ML 75 ML INFUS..BTL 65 ML IV (09:22)
== END 2022-04-04 08:36 | disposition home or self-care (01) ==
LOC: HO.CT 08:35
PROVIDERS: Visit Provider Internal Medicine Medical Oncology
DX: R91.8 Other nonspecific abnormal finding of lung field (principal)
CPT/HCPCS: 71260; Q9967

== ENCOUNTER → 2022-04-06 15:06 | Outpatient (BNVA) | payer MEDICARE, MEDICAID, SELFPAY | PROVIDERS: PCP Internal Medicine; Visit Provider Internal Medicine | DX: I26.99 Other pulmonary embolism without acute cor pulmonale (principal); Z79.01 Long term (current) use of anticoagulants; Z51.81 Encounter for therapeutic drug level monitoring | CPT/HCPCS: 85610; 99211 ==

== ENCOUNTER → 2022-04-20 14:59 | Outpatient (BNVA) | payer MEDICARE, MEDICAID, SELFPAY | PROVIDERS: PCP Internal Medicine; Visit Provider Internal Medicine | DX: I26.99 Other pulmonary embolism without acute cor pulmonale (principal); Z79.01 Long term (current) use of anticoagulants; Z51.81 Encounter for therapeutic drug level monitoring | CPT/HCPCS: 85610; 99211 ==

== ENCOUNTER → 2022-05-11 15:00 | Outpatient (BNVA) | payer MEDICARE, MEDICAID, SELFPAY | PROVIDERS: PCP Internal Medicine; Visit Provider Internal Medicine | DX: I26.99 Other pulmonary embolism without acute cor pulmonale (principal); Z79.01 Long term (current) use of anticoagulants; Z51.81 Encounter for therapeutic drug level monitoring | CPT/HCPCS: 85610; 99211 ==

== ENCOUNTER → 2022-06-08 15:14 | Outpatient (BNVA) | payer MEDICARE, MEDICAID, SELFPAY | PROVIDERS: PCP Internal Medicine; Visit Provider Internal Medicine | DX: I26.99 Other pulmonary embolism without acute cor pulmonale (principal); Z79.01 Long term (current) use of anticoagulants; Z51.81 Encounter for therapeutic drug level monitoring | CPT/HCPCS: 85610; 99211 ==

== ENCOUNTER → 2022-07-13 13:58 | Outpatient (BNVA) | payer MEDICARE, MEDICAID, SELFPAY | PROVIDERS: PCP Internal Medicine; Visit Provider Internal Medicine | DX: I26.99 Other pulmonary embolism without acute cor pulmonale (principal); Z79.01 Long term (current) use of anticoagulants; Z51.81 Encounter for therapeutic drug level monitoring | CPT/HCPCS: 85610; 99211 ==

== ENCOUNTER → 2022-08-10 14:58 | Outpatient (BNVA) | payer MEDICARE, MEDICAID, SELFPAY | PROVIDERS: PCP Internal Medicine; Visit Provider Internal Medicine | DX: I26.99 Other pulmonary embolism without acute cor pulmonale (principal); Z79.01 Long term (current) use of anticoagulants; Z51.81 Encounter for therapeutic drug level monitoring | CPT/HCPCS: 85610; 99211 ==

== ENCOUNTER → 2022-09-07 15:15 | Outpatient (BNVA) | payer MEDICARE, MEDICAID, SELFPAY | PROVIDERS: PCP Internal Medicine; Visit Provider Internal Medicine | DX: I26.99 Other pulmonary embolism without acute cor pulmonale (principal); Z79.01 Long term (current) use of anticoagulants; Z51.81 Encounter for therapeutic drug level monitoring | CPT/HCPCS: 85610; 99211 ==

== ENCOUNTER → 2022-10-05 15:25 | Outpatient (BNVA) | payer MEDICARE, MEDICAID, SELFPAY | PROVIDERS: PCP Internal Medicine; Visit Provider Internal Medicine | DX: I26.99 Other pulmonary embolism without acute cor pulmonale (principal); Z79.01 Long term (current) use of anticoagulants; Z51.81 Encounter for therapeutic drug level monitoring | CPT/HCPCS: 85610; 99211 ==

== ENCOUNTER → 2022-11-04 14:42 | Outpatient (BNVA) | payer MEDICARE, MEDICAID, SELFPAY | PROVIDERS: PCP Internal Medicine; Visit Provider Internal Medicine | DX: I26.99 Other pulmonary embolism without acute cor pulmonale (principal); Z79.01 Long term (current) use of anticoagulants; Z51.81 Encounter for therapeutic drug level monitoring | CPT/HCPCS: 85610; 99211 ==

== ENCOUNTER → 2022-12-12 14:17 | Outpatient (BNVA) | payer MEDICARE, MEDICAID, SELFPAY | PROVIDERS: PCP Internal Medicine; Visit Provider Internal Medicine | DX: I26.99 Other pulmonary embolism without acute cor pulmonale (principal); Z79.01 Long term (current) use of anticoagulants; Z51.81 Encounter for therapeutic drug level monitoring | CPT/HCPCS: 85610; 99211 ==

== ENCOUNTER → 2023-01-17 13:15 | Outpatient (BNVA) | payer MEDICARE, MEDICAID, SELFPAY | PROVIDERS: PCP Internal Medicine; Visit Provider Internal Medicine | DX: I26.99 Other pulmonary embolism without acute cor pulmonale (principal); Z79.01 Long term (current) use of anticoagulants; Z51.81 Encounter for therapeutic drug level monitoring | CPT/HCPCS: 85610; 99211 ==

== ENCOUNTER → 2023-02-14 15:21 | Outpatient (BNVA) | payer MEDICARE, MEDICAID, SELFPAY | PROVIDERS: PCP Internal Medicine; Visit Provider Internal Medicine | DX: I26.99 Other pulmonary embolism without acute cor pulmonale (principal); Z79.01 Long term (current) use of anticoagulants; Z51.81 Encounter for therapeutic drug level monitoring | CPT/HCPCS: 85610; 99211 ==

== ENCOUNTER → 2023-03-08 15:08 | Outpatient (BNVA) | payer MEDICARE, MEDICAID, SELFPAY | PROVIDERS: PCP Internal Medicine; Visit Provider Internal Medicine | DX: I26.99 Other pulmonary embolism without acute cor pulmonale (principal); Z79.01 Long term (current) use of anticoagulants; Z51.81 Encounter for therapeutic drug level monitoring | CPT/HCPCS: 85610; 99211 ==

== ENCOUNTER 2023-03-22 08:09 | Outpatient (REF) | payer MEDICARE, MEDICAID, SELFPAY ==
[2023-03-22] MEDS: iohexoL 350 MG/ML 100 ML INFUS..BTL IV (09:05)
== END 2023-03-22 08:10 | disposition home or self-care (01) ==
LOC: HO.CT 08:09
PROVIDERS: PCP Internal Medicine; Visit Provider Internal Medicine Medical Oncology
DX: R07.9 Chest pain, unspecified (principal); I26.99 Other pulmonary embolism without acute cor pulmonale
CPT/HCPCS: 71260; 82565; Q9967

== ENCOUNTER 2023-03-28 13:56 | Outpatient (REF) | payer MEDICARE, MEDICAID, SELFPAY ==
--- NOTE | 2023-03-28 16:05 | MHC.AU.HA3 ---
Hearing Instrument Follow-Up- Binaural Date of Visit: 03/28/23 Right Ear: Reynaldo, Model, Color, Serial Number: Lb Phipps P70-R SN: [id number] Color: Dillon Pr Specialist Repair Warranty: 02/16/2025 Pr Specialist Loss and Damage Warranty: 02/16/2025 [facility] Service Plan: 12/01/2022 Battery Size: Rechargeable Bark Spudder/Slim Tube: 1 P Earmold/Dome/CShell/SlimTip:Small power dome Type of Wax Guard: Cerushield Dispensed By: [facility] Date of Fittin12/01/2021 Left Ear: Reynaldo, Model, Color, Serial Number: Lb Phipps P70-R SN: [id number] Color: Dillon Pr Specialist Repair Warranty: 02/16/2025 Pr Specialist Loss and Damage Warranty: 02/16/2025 [facility] Service Plan: 12/01/2022 Battery Size: Rechargeable Bark Spudder/Slim Tube: 1 P Earmold/Dome/CShell/SlimTip: Small power dome Type of Wax Guard: Cerushield Dispensed By: [facility] Date of Fittin12/01/2021 Follow-Up Summary: Kacey returned for hearing aid adjustments. She reported that environmental noises are too loud (e.g., crinkling of paper, birds chirping); however, she can not understand speech. She has reportedly not been wearing the hearing aids for several weeks. Cleaned hearing aids. Replaced domes and wax guards. Decreased gain level to 75% and increased noise management settings. Discussed the balance between comfort of environmental noises and speech understanding as well as the importance of consistent hearing aid use in acclimating to the background noises. Kacey also thinks her hearing has worsened in both ears and has noticed a new tinnitus described as the clicking of a typewriter. Recommendations: Updated audiological evaluation - Kacey will request a doctor's order for a hearing test. Hearing aids should be fully reprogrammed following updated hearing test. Diagnosis Code(s): Primary Diagnosis: H90.3 Bilateral Sensorineural Hearing Loss Signature: Provider: Chaya Castellanos, [facility]
== END 2023-03-28 13:57 | disposition home or self-care (01) ==
LOC: HO.HAP 13:56
PROVIDERS: Visit Provider Internal Medicine
DX: Z46.1 Encounter for fitting and adjustment of hearing aid (principal); H90.3 Sensorineural hearing loss, bilateral
CPT/HCPCS: 92593; 99499

== ENCOUNTER 2023-04-06 23:05 | Emergency (ER) | payer MEDICARE, MEDICAID, SELFPAY ==
[2023-04-06 23:18] VITALS: BP 151/86; PULSE 93; RESP 18; TEMP 36.7; O2SAT 96; BMI 31.3
[2023-04-07 00:44] VITALS: BP 155/62; PULSE 87; RESP 16; TEMP 36.7; O2SAT 96
--- NOTE | 2023-04-07 00:47 | ECG_ITS ---
Test Reason : BACK PAIN Blood Pressure : / mmHG Vent. Rate : 072 BPM Atrial Rate : 072 BPM P-R Int : 178 ms QRS Dur : 080 ms QT Int : 388 ms P-R-T Axes : 043 021 029 degrees QTc Int : 424 ms Normal sinus rhythm Normal ECG When compared with ECG of 14-MAR-2019 13:41, No significant change was found Referred By: Chapin Olson Electronically Signed By:Estiven Savage
--- NOTE | 2023-04-07 00:56 | ED.GENADULT ---
HPI - General Adult General Chief complaint: Back Pain/Injury Stated complaint: Back Pain Time Seen by Provider: 04/07/23 00:18 Source: patient, family (son), RN notes reviewed and old records reviewed Mode of arrival: ambulatory Limitations: no limitations History of Present Illness HPI narrative: 67-year-old female past medical history significant for DVT/PE on Coumadin presents for evaluation of left mid to lower back pain Patient reports her pain started earlier today. She admits that she was cleaning and working around the house throughout the day today. She denies any associated symptoms including chest pain, shortness of breath, cough, abdominal pain, nausea vomiting, urinary complaints She reports that she had a similar back pain about a month ago and was sent for another CTA of the chest This was done on 03/22/2023 and she was referred to pulmonology due to lung nodules but had no worsening PE burden or acute PEs. The patient is concerned due to her history of clots and therefore presents for evaluation She states that she take a baby Tylenol without any improvement in her symptoms In the past she took ?a very low-dose morphine which got rid of my pain. Related Data Home Medications Medication Instructions Recorded Confirmed lorazepam 0.5 mg tablet 0.5 mg PO TID PRN Anxiety 10/02/20 01/17/23 metoprolol succinate 25 mg 25 mg PO DAILY 10/02/20 01/17/23 tablet,extended release 24 hr paroxetine HCl 10 mg/5 mL oral 10 mg PO DAILY 10/02/20 01/17/23 suspension Previous Rx's Medication Instructions Recorded warfarin 5 mg tablet 5 mg PO DAILY #90 tabs 08/03/20 albuterol sulfate 90 mcg/actuation 2 puff inhalation Q4-6H PRN 03/10/22 aerosol inhaler shortness of breath or wheezing #6.7 grams Allergies Allergy/AdvReac Type Severity Reaction Status Date / Time Penicillins [PENICILLINS] Allergy Unknown AGITATION Verified 03/08/23 15:09 ANTIBIOTIC X2 Allergy Unknown PT UNSURE Uncoded 02/14/23 15:22 OF NAMES Review of Systems Constitutional: Constitutional: Denies chills and Denies fever(s) Cardiovascular: Cardiovascular: Denies chest pain and Denies dyspnea Respiratory: Respiratory: Denies cough and Denies dyspnea Gastrointestinal: Gastrointestinal: Denies abdominal pain, Denies nausea and Denies vomiting Genitourinary: Genitourinary: Denies dysuria Musculoskeletal: Musculoskeletal: Reports back pain PMFSH Past Medical History Medical History Asthma Bruising Uterine cancer Surgical History H/O: hysterectomy Family History Family History Brother Cancer Lymphoma Father Brain cancer Sister Lung cancer Mother Dementia Social History Social History (Updated 05/16/22 @ 16:06 by Funmilayo Cordova CMA) Household Members: None Housing: Apartment Are you a primary manager urgent care to a significant other at home: No Do you presently have visiting nurse or other home services: No Alcohol intake: never Patient Tobacco Use Status: Never used Tobacco Smoked in Last 30 Days: No Use of substances other than those prescribed or required for medical reasons: No Advance Directives: No Advance Directives Information Provided: Yes service: No Current occupational status: unemployed Physical Exam ED Vital Signs: Vital Signs - 24 hr 04/06/23 23:18 04/07/23 00:44 04/07/23 01:13 Temperature 98.1 F 98.0 F 98.1 F Pulse Rate 93 87 69 Respiratory Rate 18 16 16 Blood Pressure 151/86 H 155/62 H 138/66 Pulse Oximetry 96 96 98 Oxygen Delivery Method Room Air Room Air Room Air BMI result Body Mass Index 31.3 Const General: healthy appearing, comfortable, no acute distress, alert and awake Nutritional Appearance: well nourished Orientation/consciousness: patient oriented [facility]: Yes normocephalic and Yes atraumatic Eyes Eyelids: Yes eyelids normal Conjunctivae: conjunctivae normal Sclerae: sclerae normal Corneas: corneas normal Pupils: Equal, round and reactive pupils present EOM: EOMs intact bilaterally Neck Neck: Yes full ROM Resp Effort & Inspection: normal respiratory effort, able to speak in complete sentences, no audible wheezes and not labored Auscultation: clear to auscultation bilaterally Back/Spine/Pelvis Other: Patient is tender to palpation of the left thoracic paraspinous region and left lumbar region. No vertebral tenderness, no step-offs or deformities. Skin General skin exam: no rashes or lesions noted and elasticity normal Neuro General: patient oriented x3 Cranial nerves: Yes Equal, round and reactive pupils present and Yes Bilaterally intact EOM present Cognition (Neuro): normal cognition Extrem Other: Moving all extremities well without any obvious deformities Medications Administered Discontinued Medications Generic Name Dose Route Start Last Admin Trade Name Hillary PRN Reason Stop Dose Admin Morphine Sulfate 2.5 mg 04/07/23 00:47 04/07/23 00:59 Morphine Sulfate Oral Idalmis 10 Mg/5 Ml Solution PO 04/07/23 00:48 2.5 mg ONCE ONE Administration Ondansetron HCl 4 mg 04/07/23 01:00 04/07/23 01:34 Ondansetron Odt 4 Mg Tab.Rapdis TRANSLINGU 04/07/23 01:01 Not Given ONCE ONE Medical Decision Making Medical Decision Making MDM Narrative: History exam is consistent with musculoskeletal back pain. The patient had a recent CT of the chest just over 2 weeks ago. She is not tachycardic, tachypneic or hypoxic. I doubt this is related to PE. Will get basic labs and check the INR. The patient be treated with a very low dose of morphine she cannot take NSAIDs and failed Tylenol. She reports that she does not do well with oxycodone. Differential Diagnosis Differential Diagnoses: The differential diagnosis associated with the presentation includes Back pain Muscle strain Obstructive uropathy UTI PE less likely Lab Data MDM Lab Attestation statement: I reviewed the patient's lab results. No leukocytosis or significant anemia, normal platelet count. Sodium normal at 140, chloride slightly elevated to 110, anion gap of 10, BUN of 17 with a normal creatinine of 1.08. LFTs were normal limits, troponin level undetectable less than 2.7 04/07/23 00:58 04/07/23 00:58 Labs: Lab Results 04/07/23 04/07/23 04/07/23 Range/Units 00:58 00:58 00:58 WBC 6.9 (4.8-10.8) X10*3/uL RBC 4.45 (4.20-5.50) X10*6/uL Hgb 12.8 (12.0-16.0) g/dl Hct 38.1 (37.0-47.0) % MCV 85.6 (80.0-98.0) fL MCH 28.8 (27.0-33.0) pg MCHC 33.6 (31.0-35.0) g/dl RDW 13.1 (11.0-16.0) % Plt Count 225 (160-400) X10*3/uL MPV 10.3 (9.4-12.3) fL Immature Gran % (Auto) 0.1 (0.0-0.4) % Neut % (Auto) 71.7 (45-73) % Lymph % (Auto) 20.5 (20-40) % [place] % (Auto) 5.8 (2-11) % Eos % (Auto) 1.3 (0-4) % Baso % (Auto) 0.6 (0-2) % Lymph # (Auto) 1.4 (1.2-4.9) X10*3/uL [place] # (Auto) 0.4 (0.1-1.2) X10*3/uL Eos # (Auto) 0.1 (0.0-0.4) X10*3/uL Baso # (Auto) 0.0 (0.0-0.2) X10*3/uL Abs Immat Gran (auto) 0.01 (0.00-0.03) X10*3/uL Absolute Neuts (auto) 5.0 (2.0-8.3) x10*3/uL Absolute Nucleated RBC 0.000 (0.0-0.012) X10*3/uL Nucleated RBC % (auto) 0.0 (0.0-0.2) /100WBC PT 37.8 H (10.0-13.1) SEC INR 3.1 H (0.9-1.1) APTT 50.0 H (26.0-36.4) SEC Sodium 140 (135-145) mmol/L Potassium 4.1 (3.3-5.1) mmol/L Chloride 110 H (96-108) mmol/L Carbon Dioxide 24 (22-29) mmol/L Anion Gap 10 L (12-20) BUN 17 H (9-16) mg/dL Creatinine 1.08 (0.5-1.4) mg/dL Estim Creat Clear Calc 44.9 Estimated GFR 51 Random Glucose 108 (60-115) mg/dL Calcium 9.6 (8.4-10.2) mg/dL Total Bilirubin 0.4 (0.0-1.0) mg/dL AST 25 (5-31) U/L ALT 19 (0-31) U/L Alkaline Phosphatase 52 (39-117) U/L Troponin I High Sens (<3.5-17.0) ng/L Total Protein 7.3 (6.5-8.0) g/dL Albumin 4.1 (3.5-5.0) g/dL Lipase 36 (8-78) U/L 04/07/23 Range/Units 00:58 WBC (4.8-10.8) X10*3/uL RBC (4.20-5.50) X10*6/uL Hgb (12.0-16.0) g/dl Hct (37.0-47.0) % MCV (80.0-98.0) fL MCH (27.0-33.0) pg MCHC (31.0-35.0) g/dl RDW (11.0-16.0) % Plt Count (160-400) X10*3/uL MPV (9.4-12.3) fL Immature Gran % (Auto) (0.0-0.4) % Neut % (Auto) (45-73) % Lymph % (Auto) (20-40) % [place] % (Auto) (2-11) % Eos % (Auto) (0-4) % Baso % (Auto) (0-2) % Lymph # (Auto) (1.2-4.9) X10*3/uL [place] # (Auto) (0.1-1.2) X10*3/uL Eos # (Auto) (0.0-0.4) X10*3/uL Baso # (Auto) (0.0-0.2) X10*3/uL Abs Immat Gran (auto) (0.00-0.03) X10*3/uL Absolute Neuts (auto) (2.0-8.3) x10*3/uL Absolute Nucleated RBC (0.0-0.012) X10*3/uL Nucleated RBC % (auto) (0.0-0.2) /100WBC PT (10.0-13.1) SEC INR (0.9-1.1) APTT (26.0-36.4) SEC Sodium (135-145) mmol/L Potassium (3.3-5.1) mmol/L Chloride (96-108) mmol/L Carbon Dioxide (22-29) mmol/L Anion Gap (12-20) BUN (9-16) mg/dL Creatinine (0.5-1.4) mg/dL Estim Creat Clear Calc Estimated GFR Random Glucose (60-115) mg/dL Calcium (8.4-10.2) mg/dL Total Bilirubin (0.0-1.0) mg/dL AST (5-31) U/L ALT (0-31) U/L Alkaline Phosphatase (39-117) U/L Troponin I High Sens < 2.7 (<3.5-17.0) ng/L Total Protein (6.5-8.0) g/dL Albumin (3.5-5.0) g/dL Lipase (8-78) U/L Independent Interpretation I performed an independent interpretation of an: EKG (Normal sinus rhythm with a rate of 72 beats per minute. No ST segment elevations or depressions. No ectopy) Tests considered The following testing was considered but not selected: CTA chest, the patient had a recent study that did not show any evidence of acute PE. Prescription Management I considered prescription management with: Pain Medication Discharge Plan Discharge Clinical Impression: Back pain Patient Disposition: Home, Self-Care Instructions: Back Pain (ED) Additional Instructions: Your workup in the emergency department today with was reassuring. This includes are EKG, your blood work. Your symptoms are most likely related to muscle spasms. Your INR was 3.1 today You may continue to use Tylenol as needed for your pain. You may also use warm compresses. 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 as plan Prescriptions: No Action albuterol sulfate 90 mcg/actuation HFA aerosol inhaler 2 puff inhalation Q4-6H PRN (Reason: shortness of breath or wheezing) Qty: 6.7 0RF warfarin 5 mg tablet 5 mg PO DAILY Qty: 90 0RF Protocol: Dose Management Condition: Monday (Week One) Dose/Route: 5 mg Instruction: 1 x 5 mg tablet Condition: Monday Dose/Route: 2.5 mg Instruction: 0.5 x 5 mg tablets Condition: Monday Dose/Route: 2.5 mg Instruction: 0.5 x 5 mg tablets Condition: Monday Dose/Route: 5 mg Instruction: 1 x 5 mg tablet Condition: Dose/Route: 2.5 mg Instruction: 0.5 x 5 mg tablets Condition: Monday Dose/Route: 5 mg Instruction: 1 x 5 mg tablet Condition: Monday Dose/Route: 2.5 mg Instruction: 0.5 x 5 mg tablets Condition: Monday (Week Two) Dose/Route: 5 mg Instruction: 1 x 5 mg tablet Condition: Monday Dose/Route: 2.5 mg Instruction: 0.5 x 5 mg tablets Condition: Monday Dose/Route: 2.5 mg Instruction: 0.5 x 5 mg tablets Condition: Monday Dose/Route: 5 mg Instruction: 1 x 5 mg tablet Condition: Dose/Route: 2.5 mg Instruction: 0.5 x 5 mg tablets Condition: Monday Dose/Route: 5 mg Instruction: 1 x 5 mg tablet Condition: Monday Dose/Route: 2.5 mg Instruction: 0.5 x 5 mg tablets Protocol Text: Adjustment Start Date: Monday03/08/23 INR Value: 2.8 INR Date: 03/08/23 Recheck Date: 04/05/23 Paxil 10 mg/5 mL suspension 10 mg PO DAILY metoprolol succinate 25 mg tablet extended release 24 hr 25 mg PO DAILY lorazepam 0.5 mg tablet 0.5 mg PO TID PRN (Reason: Anxiety)
[2023-04-07] MEDS: Morphine Sulfate Oral Sol 10 MG/5 ML SOLUTION 2.5 MG PO (00:59)
[2023-04-07 01:04] LABS: MANUAL DIFF FLAG NO
[2023-04-07 01:06] LABS: Basophils Percent Auto 0.6 % (0-2); Eosinophils Absolute Auto 0.1 X10*3/uL (0.0-0.4); Eosinophils Percent Auto 1.3 % (0-4); Hematocrit 38.1 % (37.0-47.0); Hemoglobin 12.8 g/dl (12.0-16.0); Imm Gran Abs Auto 0.01 X10*3/uL (0.00-0.03); Imm Gran Pct Auto 0.1 % (0.0-0.4); Lymphocytes Absolute Auto 1.4 X10*3/uL (1.2-4.9); Lymphocytes Percent Auto 20.5 % (20-40); Mean Corpuscular HGB Conc 33.6 g/dl (31.0-35.0); Mean Corpuscular Hemoglobin 28.8 pg (27.0-33.0); Mean Corpuscular Volume 85.6 fL (80.0-98.0); Mean Platelet Volume 10.3 fL (9.4-12.3); Monocytes Absolute Auto 0.4 X10*3/uL (0.1-1.2); Monocytes Percent Auto 5.8 % (2-11); Neutrophils Percent Auto 71.7 % (45-73); Platelet Count 225 X10*3/uL (160-400); Red Blood Count 4.45 X10*6/uL (4.20-5.50); Red Cell Distribution Width 13.1 % (11.0-16.0); White Blood Count 6.9 X10*3/uL (4.8-10.8)
[2023-04-07 01:12] LABS: INTERNATIONAL NORM RATIO 3.1 (0.9-1.1); Prothrombin Time 37.8 SEC (10.0-13.1)
[2023-04-07 01:13] VITALS: BP 138/66; PULSE 69; RESP 16; TEMP 36.7; O2SAT 98
--- NOTE | 2023-04-07 01:14 | MHC.EDTECH ---
THIS PCT ASSUMED CARE OF PT ,VITALS SIGN TAKEN ,BLOOD DRAWN AND SENT TO LAB ,EKG TAKEN AND WAS READ BY PROVIDER ,PT RESTING QUIETLY IN BED .
[2023-04-07 01:20] LABS: Alanine Aminotransferase 19 U/L (0-31); Albumin Level 4.1 g/dL (3.5-5.0); Alkaline Phosphatase 52 U/L (39-117); Anion Gap 10 (12-20); Aspartate Amino Transferase 25 U/L (5-31); Bilirubin Total 0.4 mg/dL (0.0-1.0); Blood Urea Nitrogen 17 mg/dL (9-16); Calcium 9.6 mg/dL (8.4-10.2); Carbon Dioxide 24 mmol/L (22-29); Chloride 110 mmol/L (96-108); Creatinine Clr Calc Pharmacy 44.9; Estimated Glomerular Filt Rate 51; Glucose Random 108 mg/dL (60-115); Lipase 36 U/L (8-78); Potassium 4.1 mmol/L (3.3-5.1); Sodium 140 mmol/L (135-145); Total Protein 7.3 g/dL (6.5-8.0)
[2023-04-07 01:34] LABS: Troponin-I High Sensitivity < 2.7 ng/L (<3.5-17.0)
== END 2023-04-07 01:38 | disposition home or self-care (01) ==
PROVIDERS: Physician Assistant; Emergency Provider Internal Medicine; PCP Internal Medicine
DX: M54.50 Low back pain, unspecified (principal); Z86.718 Personal history of other venous thrombosis and embolism; Z79.01 Long term (current) use of anticoagulants; Z79.82 Long term (current) use of aspirin; Z79.899 Other long term (current) drug therapy
CPT/HCPCS: 36415; 80053; 83690; 84484; 85025; 85610; 85730; 93005; 99283; 99285

== ENCOUNTER → 2023-04-07 00:47 | Outpatient (BNV) | payer MEDICARE, MEDICAID, SELFPAY | PROVIDERS: Emergency Provider Internal Medicine; PCP Internal Medicine; Visit Provider Internal Medicine Cardiovascular Disease | DX: M54.50 Low back pain, unspecified (principal) | CPT/HCPCS: 93010 ==

== ENCOUNTER 2023-04-12 13:03 | Outpatient (AMB) | payer MEDICARE, MEDICAID, SELFPAY ==
--- NOTE | 2023-04-12 13:15 | MHC.OFFVIS ---
Intake Vital Signs 04/12/23 13:16 Height 5 ft Weight 158 lb 11.725 oz BMI 31.0 BP 130/70 Blood Pressure Location Rt brachial Position Sitting Pulse 76 Pulse Source Pulse Oximeter Pulse Oximetry (%) 97 Oxygen Delivery Method Room Air Intake Visit Reasons: Pulmonary Nodules Field Technical Support Consultant Required: No Sports Media: Sports Media offered & declined Accompanied by: Self / Same As Patient Allergies Penicillins [PENICILLINS] Allergy (Unknown, Verified 04/12/23 14:15) AGITATION ANTIBIOTIC X2 Allergy (Unknown, Uncoded 04/12/23 13:22) PT UNSURE OF NAMES Medication List - Last Reconciled 04/12/23 by Anabelle Chavez LPN albuterol sulfate 90 mcg/actuation 2 puffs inhalation Q4-6H PRN lorazepam 0.5 mg PO TID PRN metoprolol succinate ER 25 mg PO DAILY paroxetine HCl 10 mg PO DAILY warfarin 5 mg See Protocol PO DAILY HPI Pulmonary Nodules HPI Details Kacey is a pleasant 68 year old female, never smoker, with underlying history of multiple pulmonary nodules, bilateral pulmonary emboli 2006, antiphospholipid antibody syndrome on coumadin, melanoma 2010 and s/p total hysterectomy for endometrial carcinoma 2012. She also reports undergoing a RML biopsy after positive PET in 06/2015 which was benign. Denies any need for chemotherapy or radiation. She also reports multiple family members with malignancies, including sister, smoker, with had lung cancer. She was referred by hematology for multiple pulmonary nodules and abnormal findings on chest CT. Full report below. She denies any respiratory or allergic symptoms. She denies any occupational exposure. 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 [facility] Medical History Asthma Bruising Uterine cancer Surgical History H/O: hysterectomy Family History Brother Cancer Lymphoma Father Brain cancer Sister Lung cancer Mother Dementia Social History (Updated 05/16/22 @ 16:06 by Funmilayo Cordova CMA) Household Members: None Housing: Apartment Are you a primary property caretaker to a significant other at home: No Do you presently have visiting nurse or other home services: No Alcohol intake: never Patient Tobacco Use Status: Never used Tobacco service: No Current occupational status: unemployed Review of Systems Const Denies chills, Denies excessive sweating, Denies fever(s), Denies headache(s) and Denies night sweats Eyes Denies dry eyes, Denies irritation and Denies itchy eyes ENT Reports Normal hearing present, Denies headache(s), Denies nasal congestion, Denies nasal discharge, Denies post nasal drip and Denies sore throat Card Denies chest pain, Denies chest pain at rest, Denies chest pain with activity, Denies claudication, Denies leg edema, Denies dyspnea, Denies dyspnea on exertion, Denies orthopnea and Denies paroxysmal nocturnal dyspnea Resp Denies chest congestion, Denies cough, Denies excessive phlegm production, Denies pain on inspiration, Denies pain with cough, Denies dyspnea, Denies dyspnea on exertion, Denies stridor and Denies wheezing Musc Denies myalgias Neuro Reports Normal hearing present and Denies headache(s) Endo Denies excessive sweating Sonny/Lymph Denies lymphadenopathy Aller/Immun Denies itchy eyes, Denies seasonal rhinorrhea and Denies wheezing Physical Exam Vital Signs: Last Vital Signs Pulse 76 04/12/23 13:16 BP 130/70 04/12/23 13:16 Pulse Ox 97 04/12/23 13:16 Oxygen Delivery Method Room Air 04/12/23 13:16 BMI result Body Mass Index 31.0 Const General: cooperative, healthy appearing, comfortable, no acute distress, well developed and alert Nutritional Appearance: obese Orientation/consciousness: patient oriented x3 Limitations: no limitations HEENT Head: Yes normal to inspection, Yes normocephalic and Yes atraumatic Ears: hearing grossly normal bilaterally and external ears normal Eyes General: appearance normal, both eyes and all related structures Eyelids: Yes eyelids normal Sclerae: sclerae normal EOM: EOMs intact bilaterally Neck Neck: Yes normal visual inspection and Yes no lymphadenopathy Lymphatic: no lymphadenopathy noted Chest Chest palpation & inspection: normal inspection of the chest Resp Effort & Inspection: normal respiratory effort, able to speak in complete sentences, no audible wheezes, no cough, no stridor, not tachypneic, no tripod positioning and no use of accessory muscles Auscultation: clear to auscultation bilaterally Cardio Jugular venous distension: no JVD Rate: regular rate Rhythm: regular rhythm Skin Other: warm, dry General skin exam: no rashes or lesions noted Neuro General: patient oriented x3 Cranial nerves: Yes Normal hearing present Cognition (Neuro): normal cognition Gait exam (Neuro): Normal gait present Extrem General: Yes normal to inspection, Yes capillary refill normal, Yes no clubbing, cyanosis or edema and Yes no pedal edema Psych Appearance: grossly normal and well kempt Speech and movement: Normal speech and movement present and Clear speech present Affect: normal affect Attitude: cooperative Thought process: Normal thought process present Thought content: Normal thought content present Insight: Good insight present (Psych) Judgement: Good judgement present (Psych) Results Reviewed Results Reviewed: [address] [address] [address] Scan Report Signed Patient: Kacey Velez MR#: [id number] : 1955 Acct:[id number] Age/Sex: 67 / F ADM Date: 03/22/23 Loc: .CT Attending Dr: Vincent Mclaughlin MD Ordering Physician: Vincent Mclaughlin MD Date of Service: 03/22/23 Procedure(s): CT chest w IV con Accession Number(s): [id number] cc: Vincent Mclaughlin MD~ EXAMINATION: CT CHEST WITH CONTRAST CLINICAL INFORMATION: Chest pain. History of lung nodules.? COMPARISON: Previous chest CT most recent March 2022 TECHNIQUE: Multidetector volumetric CT imaging of the chest was obtained after the administration of 65 mL of Omnipaque 350 intravenous contrast without immediate adverse reactions. Axial MIP volume rendering provided. Sagittal and coronal reformatted images were obtained. This CT examination was performed using dose optimization techniques as appropriate, variously including the following: *Automated exposure control *Adjustment of mA and/or kV according to patient size (this includes techniques or standardized protocols for targeted exams where dose is matched to indication/reason for exam; i.e. 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 There is a tubular branching opacity in the left lower lobe adjacent to the diaphragmatic pleural surface. Appearance is questionable for bronchial soft tissue opacification or mucus plugging. This is similar to most recent exam from March 2022 however is increased in size from older chest CT from 2018. Mild emphysema. Mild biapical pleural and parenchymal scarring. MEDIASTINUM: Stable left thyroid nodule. The mediastinum is normal. No coronary artery calcification. PLEURA: There is no pleural effusion. No pleural mass or thickening.? AXILLA: No lymphadenopathy.? UPPER ABDOMEN: Stable liver lesions again probably representing hemangiomas.. The lateral segment of the left lobe of the liver appears small. This is similar to prior exam as well. OSSEOUS STRUCTURES: There are degenerative changes of the spine.? CT/CT chest w IV con IMPRESSION: Stable small pulmonary nodules. Branching or tubular and density in the anterior basal left lower lobe adjacent to the diaphragmatic pleural surface. This may represent bronchial soft tissue opacification or mucus plugging. This is similar to most recent exam from 2021 however is increased in size from older chest CT 2018. Infectious, inflammatory and neoplastic processes should be considered. Either short-term chest CT follow-up or PET CT scan should be considered. ? Fleischner guidelines were followed. Assessment & Plan Assessment & Plan (1) Pulmonary nodules: Code(s): R91.8 - Other nonspecific abnormal finding of lung field (2) Antiphospholipid antibody syndrome: Code(s): D68.61 - Antiphospholipid syndrome Plan Kacey was referred for pulmonary nodules. Reviewed chest CT findings with patient and discussed the possibility of nodules and branching density of LLL being an infectious, inflammatory or neoplastic process. At this time, patient denies any respiratory symptoms. Will trial a flutter valve to see if there are any changes on CT, as the LLL density could be reflective of mucus plugging. We did discuss the recommendations based on the size of findings on CT and she would rather proceed with chest CT in three months rather than a PET scan. All questions aware answered and patient is in agreement of plan. Will follow up after to review results. Orders: Orders CT chest wo IV con 3 Months R91.8 - Other nonspecific abnormal finding of lung field Coding Level of Care Code New Pt Level 4 (87107) Diagnoses Pulmonary nodules R91.8 Antiphospholipid antibody syndrome D68.61
[2023-04-12 13:16] VITALS: BP 130/70; PULSE 76; O2SAT 97; BMI 31.0
== END 2023-04-12 14:03 | disposition home or self-care (01) ==
PROVIDERS: PCP Internal Medicine; Visit Provider Nurse Practitioner Family
DX: R91.8 Other nonspecific abnormal finding of lung field (principal); D68.61 Antiphospholipid syndrome
CPT/HCPCS: 99204

== ENCOUNTER → 2023-04-12 13:03 | Outpatient (BNVA) | payer MEDICARE, MEDICAID, SELFPAY | PROVIDERS: PCP Internal Medicine; Visit Provider Nurse Practitioner Family | DX: I26.99 Other pulmonary embolism without acute cor pulmonale (principal); R91.8 Other nonspecific abnormal finding of lung field; D68.61 Antiphospholipid syndrome; Z79.01 Long term (current) use of anticoagulants; Z51.81 Encounter for therapeutic drug level monitoring | CPT/HCPCS: 85610; 99202; 99211 ==

== ENCOUNTER 2023-04-12 14:14 | Outpatient (AMB) | payer MEDICARE, MEDICAID, SELFPAY ==
[2023-04-12 14:21] LABS: Prothrombin Time Whole Bld POC 50.1 sec (11.1-13.5); ~PT, ~INR - Anti Coag Clinic 4.2 (0.9-1.1)
--- NOTE | 2023-04-12 14:36 | MHC.OFFVISCO ---
Intake Intake Visit Reasons: Anticoagulation Allergies Penicillins [PENICILLINS] Allergy (Unknown, Verified 04/12/23 14:15) AGITATION ANTIBIOTIC X2 Allergy (Unknown, Uncoded 04/12/23 13:22) PT UNSURE OF NAMES Medication List - Last Reconciled 04/12/23 by Lanette Lee RN albuterol sulfate 90 mcg/actuation 2 puffs inhalation Q4-6H PRN lorazepam 0.5 mg PO TID PRN metoprolol succinate ER 25 mg PO DAILY paroxetine HCl 10 mg PO DAILY warfarin 5 mg See Protocol PO DAILY Nursing Note PT.STATES THAT SHE WAS IN ED ON 04/08 WITH (L)FLANK/CP. WAS GIVEN SMALL DOSE OF MS AND DC'D WITH FOLLOW-UP TO PULMONARY. PT.STATES THAT SHE IS MUCH IMPROVED BUT CONTINUES TO HAVE LEG CRAMPS. 2.5MGM WARFAIN TODAY AND WILL BE SURE TO HAVE DARK GREENS NEXT 2 DAYS. FOLLOW-UP IN 2 WEEKS.. GOOD UNDERSTANDING OF DOSING INSTR. Anti-Coag Initial Assessment Social Hx Patient Tobacco Use Status: Never used Tobacco alcohol intake: never Alcohol intake frequency: does not drink Coding Level of Care Code Est Patient Level 1 Diagnoses Current use of anticoagulant therapy Z79.01 Assessment & Plan Assessment & Plan (1) Current use of anticoagulant therapy: Code(s): Z79.01 - senior living (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
== END 2023-04-12 14:39 | disposition home or self-care (01) ==
LOC: HO.ACS 14:14
PROVIDERS: PCP Internal Medicine; Visit Provider Internal Medicine
DX: Z79.01 Long term (current) use of anticoagulants (principal)

== ENCOUNTER 2023-04-26 13:58 | Outpatient (AMB) | payer MEDICARE, MEDICAID, SELFPAY ==
[2023-04-26 14:05] LABS: ~PT, ~INR - Anti Coag Clinic 2.6 (0.9-1.1)
--- NOTE | 2023-04-26 14:10 | MHC.OFFVISCO ---
Intake Intake Visit Reasons: Anticoagulation Allergies Penicillins [PENICILLINS] Allergy (Unknown, Verified 04/26/23 13:59) AGITATION ANTIBIOTIC X2 Allergy (Unknown, Uncoded 04/12/23 13:22) PT UNSURE OF NAMES Medication List - Last Reconciled 04/26/23 by Lanette Lee, RN albuterol sulfate 90 mcg/actuation 2 puffs inhalation Q4-6H PRN lorazepam 0.5 mg PO TID PRN metoprolol succinate ER 25 mg PO DAILY paroxetine HCl 10 mg PO DAILY warfarin 5 mg See Protocol PO DAILY Nursing Note NO CP,SOB,DIET/MED CHANGES,FALLS OR SX OF BLEEDING. CONTINUE PRESENT DOSE AND FOLLOW-UP IN 3 WEEKS. GOOD UNDERSTANDING OF DFOSING INSTR. Anti-Coag Initial Assessment Social Hx Patient Tobacco Use Status: Never used Tobacco alcohol intake: never Alcohol intake frequency: does not drink Coding Level of Care Code Est Patient Level 1 Diagnoses Current use of anticoagulant therapy Z79.01 Assessment & Plan Assessment & Plan (1) Current use of anticoagulant therapy: Code(s): Z79.01 - senior living (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
== END 2023-04-26 14:19 | disposition home or self-care (01) ==
LOC: HO.ACS 13:58
PROVIDERS: PCP Internal Medicine; Visit Provider Internal Medicine
DX: Z79.01 Long term (current) use of anticoagulants (principal)

== ENCOUNTER → 2023-04-26 13:58 | Outpatient (BNVA) | payer MEDICARE, MEDICAID, SELFPAY | PROVIDERS: PCP Internal Medicine; Visit Provider Internal Medicine | DX: I26.99 Other pulmonary embolism without acute cor pulmonale (principal); Z79.01 Long term (current) use of anticoagulants; Z51.81 Encounter for therapeutic drug level monitoring | CPT/HCPCS: 85610; 99211 ==

== ENCOUNTER 2023-05-16 13:51 | Outpatient (AMB) | payer MEDICARE, MEDICAID, SELFPAY ==
--- NOTE | 2023-05-16 13:56 | MHC.OFFVISCO ---
Intake Intake Visit Reasons: Anticoagulation Allergies Penicillins [PENICILLINS] Allergy (Unknown, Verified 05/16/23 13:52) AGITATION ANTIBIOTIC X2 Allergy (Unknown, Uncoded 05/16/23 13:52) PT UNSURE OF NAMES Medication List - Last Reconciled 05/16/23 by Zahra Sanchez RN albuterol sulfate 90 mcg/actuation 2 puffs inhalation Q4-6H PRN lorazepam 0.5 mg PO TID PRN metoprolol succinate ER 25 mg PO DAILY paroxetine HCl (Paxil) 20 mg PO DAILY warfarin 5 mg See Protocol PO DAILY Nursing Note INR: 3.5 in therapeutic range Medications and supplements reviewed had pulmonary appt and hem onc appt today - had an episode of pain in her side about 2 months ago - will have ct scan next month - she still has some discomfort but not as bad -feels like its getting better. Denies any signs and symptoms of bleeding or bruising or clotting. Bleeding, bruising, clotting discussed Nutritional guidance given Dose: 5mg x 3 days/ 2.5mg x 4 days F/U INR: 4 weeks Patient verbalizes understanding of instructions given Anti-Coag Initial Assessment Social Hx Patient Tobacco Use Status: Never used Tobacco alcohol intake: never Alcohol intake frequency: does not drink Coding Level of Care Code Est Patient Level 1 Diagnoses Current use of anticoagulant therapy Z79.01 Assessment & Plan Assessment & Plan (1) Current use of anticoagulant therapy: Code(s): Z79.01 - [facility] (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
[2023-05-16 13:57] LABS: Prothrombin Time Whole Bld POC 41.4 sec (11.1-13.5); ~PT, ~INR - Anti Coag Clinic 3.5 (0.9-1.1)
== END 2023-05-16 14:10 | disposition home or self-care (01) ==
LOC: HO.ACS 13:51
PROVIDERS: PCP Internal Medicine; Visit Provider Internal Medicine
DX: Z79.01 Long term (current) use of anticoagulants (principal)

== ENCOUNTER → 2023-05-16 13:51 | Outpatient (BNVA) | payer MEDICARE, MEDICAID, SELFPAY | PROVIDERS: PCP Internal Medicine; Visit Provider Internal Medicine | DX: I26.99 Other pulmonary embolism without acute cor pulmonale (principal); Z51.81 Encounter for therapeutic drug level monitoring; Z79.01 Long term (current) use of anticoagulants | CPT/HCPCS: 85610; 99211 ==

== ENCOUNTER 2023-06-13 14:54 | Outpatient (AMB) | payer MEDICARE, MEDICAID, SELFPAY ==
[2023-06-13 15:00] LABS: Prothrombin Time Whole Bld POC 40.6 sec (11.1-13.5); ~PT, ~INR - Anti Coag Clinic 3.4 (0.9-1.1)
--- NOTE | 2023-06-13 15:03 | MHC.OFFVISCO ---
Intake Intake Visit Reasons: Anticoagulation Allergies Penicillins [PENICILLINS] Allergy (Unknown, Verified 06/13/23 14:55) AGITATION ANTIBIOTIC X2 Allergy (Unknown, Uncoded 06/13/23 14:55) PT UNSURE OF NAMES Medication List - Last Reconciled 06/13/23 by Gertrude Arceo, RN albuterol sulfate 90 mcg/actuation 2 puffs inhalation Q4-6H PRN lorazepam 0.5 mg PO TID PRN metoprolol succinate ER 25 mg PO DAILY paroxetine HCl (Paxil) 20 mg PO DAILY warfarin 5 mg See Protocol PO DAILY Nursing Note Amb to [facility] feeling ok, sts she feels like she is living here between pulmonary, exams and here Medications and supplements reviewed No changes in health, diet, medications, or supplements other than sts she basically eats ice cream but has discovered diced beets which she likes, cautioned regarding raising effect of beets and to enjoy in moderation Denies any unusual signs and symptoms of bruising, bleeding Denies any new Chest pain, SOB, or clotting INR: 3.4 in therapeutic range (2.5-3.5) Nutritional guidance given: balance greens and reds in diet Dose: continue usual dosing; 5mg x 3 days and 2.5mg x 4 days F/U INR: 4 weeks Patient verbalizes understanding of instructions given with accurate read back/ teach back of dosing Anti-Coag Initial Assessment Social Hx Patient Tobacco Use Status: Never used Tobacco alcohol intake: never Alcohol intake frequency: does not drink Coding Level of Care Code Est Patient Level 1 Diagnoses Current use of anticoagulant therapy Z79.01 Time Spent (min) 15 Assessment & Plan Assessment & Plan (1) Current use of anticoagulant therapy: Code(s): Z79.01 - nursing home (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
== END 2023-06-13 15:14 | disposition home or self-care (01) ==
LOC: HO.ACS 14:54
PROVIDERS: PCP Internal Medicine; Visit Provider Internal Medicine
DX: Z79.01 Long term (current) use of anticoagulants (principal)

== ENCOUNTER → 2023-06-13 14:54 | Outpatient (BNVA) | payer MEDICARE, MEDICAID, SELFPAY | PROVIDERS: PCP Internal Medicine; Visit Provider Internal Medicine | DX: I26.99 Other pulmonary embolism without acute cor pulmonale (principal); Z79.01 Long term (current) use of anticoagulants; Z51.81 Encounter for therapeutic drug level monitoring | CPT/HCPCS: 85610; 99211 ==

== ENCOUNTER 2023-07-11 14:58 | Outpatient (AMB) | payer MEDICARE, MEDICAID, SELFPAY ==
--- NOTE | 2023-07-11 15:06 | MHC.OFFVISCO ---
Intake Intake Visit Reasons: Anticoagulation Allergies Penicillins [PENICILLINS] Allergy (Unknown, Verified 07/11/23 15:02) AGITATION ANTIBIOTIC X2 Allergy (Unknown, Uncoded 07/11/23 15:02) PT UNSURE OF NAMES Medication List - Last Reconciled 07/11/23 by Fidelina Tiwari RN albuterol sulfate 90 mcg/actuation 2 puffs inhalation Q4-6H PRN lorazepam 0.5 mg PO TID PRN metoprolol succinate ER 25 mg PO DAILY paroxetine HCl (Paxil) 20 mg PO DAILY warfarin 5 mg See Protocol PO DAILY Nursing Note INR: 3.4- in therapeutic range 2.5-3.5 Medications and supplements reviewed No changes in health, diet, medications, or supplements, Denies any signs and symptoms of bleeding or bruising or clotting. Bleeding, bruising, clotting discussed Nutritional guidance given Dose: 5mg x 3, 2.5mg x 4 F/U INR: 3 weeks- prior to pulm appt- 08/02/23 pt verbalizes understanding of instructions given Anti-Coag Initial Assessment Social Hx Patient Tobacco Use Status: Never used Tobacco alcohol intake: never Alcohol intake frequency: does not drink Coding Level of Care Code Est Patient Level 1 Diagnoses Current use of anticoagulant therapy Z79.01 Results AMB INR Fingerstick AMB INR Fingerstick 3.4 Last Edit by Fidelina Tiwari RN on 07/11/23 15:07 Assessment & Plan Assessment & Plan (1) Current use of anticoagulant therapy: 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
[2023-07-11 15:07] LABS: Prothrombin Time Whole Bld POC 41.4 sec (11.1-13.5); ~PT, ~INR - Anti Coag Clinic 3.4 (0.9-1.1)
== END 2023-07-11 15:12 | disposition home or self-care (01) ==
LOC: HO.ACS 14:58
PROVIDERS: PCP Internal Medicine; Visit Provider Internal Medicine
DX: Z79.01 Long term (current) use of anticoagulants (principal)

== ENCOUNTER → 2023-07-11 14:58 | Outpatient (BNVA) | payer MEDICARE, MEDICAID, SELFPAY | PROVIDERS: PCP Internal Medicine; Visit Provider Internal Medicine | DX: I26.99 Other pulmonary embolism without acute cor pulmonale (principal); Z79.01 Long term (current) use of anticoagulants; Z51.81 Encounter for therapeutic drug level monitoring | CPT/HCPCS: 85610; 99211 ==

== ENCOUNTER 2023-07-19 14:59 | Outpatient (REF) | payer MEDICARE, MEDICAID, SELFPAY ==
--- NOTE | ~2023-07-19 | CT_ITS ---
EXAMINATION: CT CHEST WITHOUT CONTRAST CLINICAL INFORMATION: Abnormal finding lung field. COMPARISON: Previous CTs, most recent, 03/22/2023 TECHNIQUE: Multidetector volumetric CT imaging of the chest was done. Axial MIP volume rendering provided. Sagittal and coronal reformatted images were obtained. This CT examination was performed using dose optimization techniques as appropriate, variously including the following: *Automated exposure control *Adjustment of mA and/or kV according to patient size (this includes techniques or standardized protocols for targeted exams where dose is matched to indication/reason for exam; i.e. extremities or head) *Use of iterative reconstruction technique DLP: 251 mGy-cm FINDINGS: WATCH ELECTRICIAN: Negative LUNGS: Mild apical pleural thickening. Trachea and bronchi are patent. Centrilobular emphysema. Tubular opacity right lower lobe extending to the diaphragmatic surface, 6:314 likely bronchiectasis and mucous plugging. 5 mm rounded opacity in the lingula appears to be mucus plugging demonstrating filling in from previous study. Unchanged left lower lobe tubular opacity at the diaphragmatic surface, question mucus plugging. NODULES: Stable 4 mm RUL nodule, 6:204. No change 5 mm RUL 6:214. MEDIASTINUM: Unremarkable thyroid. Left thyroid lobe anterior hypodensity seen on previous study not appreciated on current noncontrast study. No pathologic lymphadenopathy. Nonenlarged heart. No pericardial effusion. Nonaneurysmal aorta with atherosclerotic calcifications nonenlarged pulmonary arteries. CORONARY ARTERY CALCIFICATION: None visualized on this study. PLEURA: 3 mm right minor fissural nodule, 9:79. There is no pleural effusion. No pleural mass or thickening. AXILLA: No lymphadenopathy. UPPER ABDOMEN: Exophytic calcification: underlying hypoechoic densities in the left hepatic lobe are unchanged. Right hepatic hypodensities at the dome, medially and at the level of the gallbladder fossa are unchanged, previously thought to represent hemangiomas. OSSEOUS STRUCTURES: Mild degenerative changes and mild kyphosis is osseous lesions. CT/CT chest wo IV con IMPRESSION: Centrilobular emphysema. Stable lung nodules, none larger than 5 for which no further workup is recommended No significant change bilateral lower lobe and lingular opacities, favor bronchiectasis and mucous plugging. Consider short-term chest follow-up. Fleischner guidelines were followed.
== END 2023-07-19 15:00 | disposition home or self-care (01) ==
LOC: HO.CT 14:59
PROVIDERS: PCP Internal Medicine; Visit Provider Nurse Practitioner Family
DX: R91.8 Other nonspecific abnormal finding of lung field (principal)
CPT/HCPCS: 71250

== ENCOUNTER 2023-08-08 13:45 | Outpatient (AMB) | payer MEDICARE, MEDICAID, SELFPAY ==
--- NOTE | 2023-08-08 13:52 | MHC.OFFVISCO ---
Intake Intake Visit Reasons: Anticoagulation Allergies Penicillins [PENICILLINS] Allergy (Unknown, Verified 08/08/23 13:48) AGITATION ANTIBIOTIC X2 Allergy (Unknown, Uncoded 08/08/23 13:48) PT UNSURE OF NAMES Medication List - Last Reconciled 08/08/23 by Fidelina Tiwari, RN albuterol sulfate 90 mcg/actuation 2 puffs inhalation Q4-6H PRN lorazepam 0.5 mg PO TID PRN metoprolol succinate ER 25 mg PO DAILY paroxetine HCl (Paxil) 20 mg PO DAILY warfarin 5 mg See Protocol PO DAILY Nursing Note INR: 2.8- in therapeutic range of 2.5-3.5 Medications and supplements reviewed- no changes No changes in health, diet, medications, or supplements, Denies any signs and symptoms of bleeding or bruising or clotting. Bleeding, bruising, clotting discussed Nutritional guidance given Dose: 5mg x 3, 2.5mg x 4 F/U INR: 4 weeks Patient verbalizes understanding of instructions given pt states upcoming pul appt 08/15/23 pt states does not get flu or covid vaccines Anti-Coag Initial Assessment Social Hx Patient Tobacco Use Status: Never used Tobacco alcohol intake: never Alcohol intake frequency: does not drink Coding Level of Care Code Est Patient Level 1
[2023-08-08 13:53] LABS: Prothrombin Time Whole Bld POC 33.5 sec (11.1-13.5); ~PT, ~INR - Anti Coag Clinic 2.8 (0.9-1.1)
== END 2023-08-08 13:55 | disposition home or self-care (01) ==
LOC: HO.ACS 13:45
PROVIDERS: PCP Internal Medicine; Visit Provider Internal Medicine
DX: Z79.01 Long term (current) use of anticoagulants (principal)

== ENCOUNTER → 2023-08-08 13:45 | Outpatient (BNVA) | payer MEDICARE, MEDICAID, SELFPAY | PROVIDERS: PCP Internal Medicine; Visit Provider Internal Medicine | DX: I26.99 Other pulmonary embolism without acute cor pulmonale (principal); Z79.01 Long term (current) use of anticoagulants; Z51.81 Encounter for therapeutic drug level monitoring | CPT/HCPCS: 85610; 99211 ==

== ENCOUNTER 2023-08-29 22:49 | Emergency (ER) | payer MEDICARE, MEDICAID, SELFPAY ==
[2023-08-29 22:54] VITALS: BP 154/56; PULSE 69; RESP 18; TEMP 36.4; O2SAT 98; BMI 30.3
[2023-08-30 00:34] VITALS: BP 133/54; PULSE 69; RESP 16; TEMP 36.6; O2SAT 96
--- NOTE | 2023-08-30 00:50 | ED.GENADULT ---
HPI - General Adult General Chief complaint: General Medical Stated complaint: right hand cat scratch, swollen Time Seen by Provider: 08/30/23 00:44 Source: patient, RN notes reviewed and old records reviewed Mode of arrival: ambulatory Limitations: no limitations History of Present Illness HPI narrative: 68-year-old female presents for evaluation of a cat scratch to her right hand. Patient reports she was breaking up a fight between her cats She states that the cat scratch on the back of her right hand She reports significant swelling and bruising to This happened about 3 hours prior to arrival She reports good range of motion to her entire hand Denies any fevers, chills or redness to the hand She is unsure when her last tetanus was updated Related Data Home Medications Medication Instructions Recorded Confirmed lorazepam 0.5 mg tablet 0.5 mg PO TID PRN Anxiety 10/02/20 06/13/23 metoprolol succinate 25 mg 25 mg PO DAILY 10/02/20 06/13/23 tablet,extended release 24 hr paroxetine HCl 20 mg tablet (Paxil) 20 mg PO DAILY 05/16/23 06/13/23 Previous Rx's Medication Instructions Recorded warfarin 5 mg tablet 5 mg PO DAILY #90 tabs 08/03/20 albuterol sulfate 90 mcg/actuation 2 puff inhalation Q4-6H PRN 03/10/22 aerosol inhaler shortness of breath or wheezing #6.7 grams amoxicillin 400 mg-potassium 10.9375 ml PO Q12H 5 days #150 mL 08/30/23 clavulanate 57 mg/5 mL oral suspension Allergies Allergy/AdvReac Type Severity Reaction Status Date / Time Penicillins [PENICILLINS] AdvReac Unknown Agitation Verified 08/29/23 22:53 ANTIBIOTIC X2 Allergy Unknown PT UNSURE Uncoded 08/08/23 13:48 OF NAMES Review of Systems Constitutional: Constitutional: Denies chills and Denies fever(s) Integumentary/Breasts: Skin/Breast: Denies erythema and Reports wounds PMFSH Past Medical History Medical History (Updated 08/30/23 @ 00:51 by Chapin Olson) Antiphospholipid antibody syndrome (~2006) History of pulmonary embolism (~2006) Current use of anticoagulant therapy (~2006) History of blood transfusion (~2012) History of uterine cancer (~2012) History of melanoma (~2010) Pulmonary nodules History of COVID-19 (~2021) Surgical History (Updated 07/27/23 @ 12:38 by Catherine Villavicencio PA-C) History of melanoma excision (~2010) History of lung biopsy (~2014) History of total hysterectomy (~2012) Family History Family History Brother Cancer Lymphoma Father Brain cancer Sister Lung cancer Mother Dementia Social History Social History Household Members: None Housing: Apartment Are you a primary healthcare applications analyst to a significant other at home: No Do you presently have visiting nurse or other home services: No Alcohol intake: never Patient Tobacco Use Status: Never used Tobacco Smoked in Last 30 Days: No Use of substances other than those prescribed or required for medical reasons: No Advance Directives: No Advance Directives Information Provided: No service: No Current occupational status: unemployed Physical Exam ED Vital Signs: Vital Signs - 24 hr 08/29/23 22:54 08/30/23 00:34 Temperature 97.6 F 98 F Pulse Rate 69 69 Respiratory Rate 18 16 Blood Pressure 154/56 H 133/54 L Pulse Oximetry 98 96 Oxygen Delivery Method Room Air Room Air BMI result Body Mass Index 30.3 Skin Other: Patient has a small abrasion to the dorsal surface the right hand just proximal to the right 2nd MCP joint. There is a large contusion/hematoma surrounding this mostly distally. No erythema or drainage, no deep lacerations noted. Extrem Other: Patient has full range of motion flexion extension of all fingers of the right hand as well as the wrist. Minimal tenderness to the dorsal surface of the right hand overlying the right 2nd metacarpal Medications Administered Discontinued Medications Generic Name Dose Route Start Last Admin Trade Name Freq PRN Reason Stop Dose Admin Diphtheria/Tetanus/Acell Pertussis 0.5 ml 08/30/23 00:53 08/30/23 01:00 Diphth,Pertus(Acell),Tet Adult 0.5 Ml Syringe IM 08/30/23 00:54 0.5 ml .ONCE ONE Administration Medical Decision Making Medical Decision Making MDM Narrative: Patient presents with a mild injury from a cat scratch. There is a cutaneous hematoma but there is no evidence of infection at this time. No erythema, no increased warmth or drainage. Despite this come will treat with Augmentin to cover prophylaxis. The patient reports that penicillin makes her agitated but amoxicillin/Augmentin does not. She has had this in the past without any issue. Differential Diagnosis Differential Diagnoses: The differential diagnosis associated with the presentation includes Cat scratch Cat bite Laceration Contusion Discharge Plan Discharge Clinical Impression: Cat scratch, Hematoma Patient Disposition: Home, Self-Care Instructions: Animal Bite (ED) Prescriptions: New amoxicillin-pot clavulanate 400-57 mg/5 mL suspension for reconstitution 10.9375 ml PO Q12H 5 Days Qty: 150 0RF No Action albuterol sulfate 90 mcg/actuation HFA aerosol inhaler 2 puff inhalation Q4-6H PRN (Reason: shortness of breath or wheezing) Qty: 6.7 0RF warfarin 5 mg tablet 5 mg PO DAILY Qty: 90 0RF Protocol: Dose Management Condition: Monday (Week One) Dose/Route: 5 mg Instruction: 1 x 5 mg tablet Condition: Monday Dose/Route: 2.5 mg Instruction: 0.5 x 5 mg tablets Condition: Monday Dose/Route: 2.5 mg Instruction: 0.5 x 5 mg tablets Condition: Monday Dose/Route: 5 mg Instruction: 1 x 5 mg tablet Condition: Dose/Route: 2.5 mg Instruction: 0.5 x 5 mg tablets Condition: Monday Dose/Route: 5 mg Instruction: 1 x 5 mg tablet Condition: Monday Dose/Route: 2.5 mg Instruction: 0.5 x 5 mg tablets Condition: Monday (Week Two) Dose/Route: 5 mg Instruction: 1 x 5 mg tablet Condition: Monday Dose/Route: 2.5 mg Instruction: 0.5 x 5 mg tablets Condition: Monday Dose/Route: 2.5 mg Instruction: 0.5 x 5 mg tablets Condition: Monday Dose/Route: 5 mg Instruction: 1 x 5 mg tablet Condition: Dose/Route: 2.5 mg Instruction: 0.5 x 5 mg tablets Condition: Monday Dose/Route: 5 mg Instruction: 1 x 5 mg tablet Condition: Monday Dose/Route: 2.5 mg Instruction: 0.5 x 5 mg tablets Protocol Text: Adjustment Start Date: Monday08/08/23 INR Value: Pending INR Date: 08/08/23 Recheck Date: 09/05/23 Additional Instructions: cont prev dosing call with any changes in medications metoprolol succinate 25 mg tablet extended release 24 hr 25 mg PO DAILY lorazepam 0.5 mg tablet 0.5 mg PO TID PRN (Reason: Anxiety) paroxetine HCl [Paxil] 20 mg tablet 20 mg PO DAILY Interventions: ED Discharge Assessment Last Done: 08/30/23 01:13 Discharge Date/Time: 08/30/23 01:16
[2023-08-30] MEDS: Diphth,Pertus(ACell),Tet Adult 0.5 ML SYRINGE IM (01:00)
--- NOTE | 2023-08-30 01:15 | PC.NURSE ---
Reviewed discharge instructions with pt, pt verbalized understanding, no sign of distress upon discharge.
== END 2023-08-30 01:16 | disposition home or self-care (01) ==
PROVIDERS: Emergency Provider Emergency Medicine; PCP Internal Medicine
DX: S60.511A Abrasion of right hand, initial encounter (principal); W55.03XA Scratched by cat, initial encounter; Y93.9 Activity, unspecified; Y92.009 Unspecified place in unspecified non-institutional (private) residence as the place of occurrence of the external cause; Y99.9 Unspecified external cause status; Z79.899 Other long term (current) drug therapy; Z23 Encounter for immunization
CPT/HCPCS: 90471; 90715; 99284

== ENCOUNTER 2023-09-05 13:50 | Outpatient (AMB) | payer MEDICARE, MEDICAID, SELFPAY ==
[2023-09-05 14:08] LABS: ~PT, ~INR - Anti Coag Clinic 3.7 (0.9-1.1)
--- NOTE | 2023-09-05 14:19 | MHC.OFFVISCO ---
Intake Intake Visit Reasons: Anticoagulation Allergies Penicillins [PENICILLINS] Adverse Reaction (Unknown, Verified 09/05/23 14:07) Agitation ANTIBIOTIC X2 Allergy (Unknown, Uncoded 09/05/23 14:07) PT UNSURE OF NAMES Medication List - Last Reconciled 09/05/23 by Zahra Sanchez RN albuterol sulfate 90 mcg/actuation 2 puffs inhalation Q4-6H PRN amoxicillin-pot clavulanate 400-57 mg/5 mL 10.9375 mL PO Q12H 5 days lorazepam 0.5 mg PO TID PRN metoprolol succinate ER 25 mg PO DAILY paroxetine HCl (Paxil) 20 mg PO DAILY warfarin 5 mg See Protocol PO DAILY Nursing Note INR: 3.7 JUST OUT OF therapeutic range- STRESS WITH LIVING SITUATION WITH [place], very talkative today Medications and supplements reviewed No changes in health, diet, medications, or supplements, Denies any signs and symptoms of bleeding or bruising or clotting. 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
== END 2023-09-05 14:24 | disposition home or self-care (01) ==
LOC: HO.ACS 13:50
PROVIDERS: PCP Internal Medicine; Visit Provider Internal Medicine
DX: Z79.01 Long term (current) use of anticoagulants (principal)

== ENCOUNTER → 2023-09-05 13:50 | Outpatient (BNVA) | payer MEDICARE, MEDICAID, SELFPAY | PROVIDERS: PCP Internal Medicine; Visit Provider Internal Medicine | DX: I26.99 Other pulmonary embolism without acute cor pulmonale (principal); Z79.01 Long term (current) use of anticoagulants; Z51.81 Encounter for therapeutic drug level monitoring | CPT/HCPCS: 85610; 99211 ==

== ENCOUNTER 2023-10-03 14:16 | Outpatient (AMB) | payer MEDICARE, MEDICAID, SELFPAY ==
[2023-10-03 14:25] LABS: Prothrombin Time Whole Bld POC 48.5 sec (11.1-13.5)
--- NOTE | 2023-10-03 15:08 | MHC.OFFVISCO ---
Intake Intake Visit Reasons: Anticoagulation Allergies Penicillins [PENICILLINS] Adverse Reaction (Unknown, Verified 10/03/23 14:25) Agitation ANTIBIOTIC X2 Allergy (Unknown, Uncoded 10/03/23 14:25) PT UNSURE OF NAMES Medication List - Last Reconciled 10/03/23 by Gertrude Cadena, RN albuterol sulfate 90 mcg/actuation 2 puffs inhalation Q4-6H PRN lorazepam 0.5 mg PO TID PRN metoprolol succinate ER 25 mg PO DAILY paroxetine HCl (Paxil) 20 mg PO DAILY warfarin 5 mg See Protocol PO DAILY Nursing Note PT SEEN. INR 4.0. INR MAY REFLECT DELAYED EFFECT FROM ANTIBIOTIC COMPLETEED 2 WEEKS AGO. IT IS UNCERTAIN IF PT MISSED A DOSE LAST NIGHT. WILL HOLD TONIGHTS DOSE. PT VERBALIZES UNDERSTANDING. NO SIGNS OF BRUISING OR BLEEDING. WILL FOLLOW UP IN 1 WEEK. 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
== END 2023-10-03 15:06 | disposition home or self-care (01) ==
LOC: HO.ACS 14:16
PROVIDERS: PCP Internal Medicine; Visit Provider Internal Medicine
DX: Z79.01 Long term (current) use of anticoagulants (principal)

== ENCOUNTER → 2023-10-03 14:16 | Outpatient (BNVA) | payer MEDICARE, MEDICAID, SELFPAY | PROVIDERS: PCP Internal Medicine; Visit Provider Internal Medicine | DX: I26.99 Other pulmonary embolism without acute cor pulmonale (principal); Z51.81 Encounter for therapeutic drug level monitoring; Z79.01 Long term (current) use of anticoagulants | CPT/HCPCS: 85610; 99211 ==

== ENCOUNTER 2023-10-10 14:03 | Outpatient (AMB) | payer MEDICARE, MEDICAID, SELFPAY ==
[2023-10-10 14:24] LABS: Prothrombin Time Whole Bld POC 31.5 sec (11.1-13.5); ~PT, ~INR - Anti Coag Clinic 2.6 (0.9-1.1)
--- NOTE | 2023-10-10 14:28 | MHC.OFFVISCO ---
Intake Intake Visit Reasons: Anticoagulation Allergies Penicillins [PENICILLINS] Adverse Reaction (Unknown, Verified 10/10/23 14:18) Agitation ANTIBIOTIC X2 Allergy (Unknown, Uncoded 10/10/23 14:18) PT UNSURE OF NAMES Medication List - Last Reconciled 10/10/23 by Gertrude Cadena, RN albuterol sulfate 90 mcg/actuation 2 puffs inhalation Q4-6H PRN lorazepam 0.5 mg PO TID PRN metoprolol succinate ER 25 mg PO DAILY paroxetine HCl (Paxil) 20 mg PO DAILY warfarin 5 mg See Protocol PO DAILY Nursing Note PT TO [facility] A&O X3. 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 NO MEDICATION CHANGES OTHER THAN WAS OFF PAXIL X 3DAYS UNTIL REFILL OBTAINED. NO S/S OF BRUISING BLEEDING, CLOTTING, CHEST PAIN OR SOB. PT STATES SHE STILL HAS A VIBRATION IN MY HEAD. OF NOTE, LESS REPEATING OF INSTRUCTIONS TO PT DUE TO DIFF HEARING. PT SAYS NEEDS MRI BUT HAS NOT REPORTED SYMPTOMS TO PCP AND NO MRI SCHEDULED AT THIS TIME. MSG SENT TO DR LONGORIA. NO OTHER HEALTH CHANGES. TO CONTINUE REGULAR SCHEDULE FOR DOSING. 5MG X3DAYS, 2.5MG X4 DAYS. INSTRUCTED TO AVOID GREENS TODAY AND THEN BALANCE REDS AND GREENS. PT VERBALIZES UNDERSTANDING OF INSTRUCTIONS. TO F/U IN 2 WEEKS. 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
== END 2023-10-10 14:51 | disposition home or self-care (01) ==
LOC: HO.ACS 14:03
PROVIDERS: PCP Internal Medicine; Visit Provider Internal Medicine
DX: Z79.01 Long term (current) use of anticoagulants (principal)

== ENCOUNTER → 2023-10-10 14:03 | Outpatient (BNVA) | payer MEDICARE, MEDICAID, SELFPAY | PROVIDERS: PCP Internal Medicine; Visit Provider Internal Medicine | DX: I26.99 Other pulmonary embolism without acute cor pulmonale (principal); Z79.01 Long term (current) use of anticoagulants; Z51.81 Encounter for therapeutic drug level monitoring | CPT/HCPCS: 85610; 99211 ==

== ENCOUNTER 2023-11-13 13:41 | Outpatient (AMB) | payer MEDICARE, MEDICAID, SELFPAY ==
[2023-11-13 13:46] LABS: Prothrombin Time Whole Bld POC 40.9 sec (11.1-13.5); ~PT, ~INR - Anti Coag Clinic 3.4 (0.9-1.1)
--- NOTE | 2023-11-13 13:51 | MHC.OFFVISCO ---
Intake Intake Visit Reasons: Anticoagulation Allergies Penicillins [PENICILLINS] Adverse Reaction (Unknown, Verified 11/13/23 13:41) Agitation ANTIBIOTIC X2 Allergy (Unknown, Uncoded 11/13/23 13:41) PT UNSURE OF NAMES Nursing Note INR: 3.4 in therapeutic range OF 2.5-3.5 Pt had a in the family and stated she mixed up her dosing. It is unclear what she did but INR in range Medications and supplements reviewed No changes in health, diet, medications, or supplements, Denies any signs and symptoms of bleeding or bruising or clotting. Bleeding, bruising, clotting discussed Nutritional guidance given Dose: continue same dose of 2.5mg X4 days and 5mg X 3 days F/U INR: 2 weeks Patient verbalizes understanding of instructions given Anti-Coag Initial Assessment Social Hx Patient Tobacco Use Status: Never used Tobacco alcohol intake: never Alcohol intake frequency: does not drink Questionnaires HAS-BLED Does the patient had uncontrolled Hypertension?: No Does the patient have renal disease?: No Does the patient have liver disease?: No Does the patient have a history of stroke?: No Has the patient had major bleeding or predisposition to bleeding?: Yes Does the patient have labile INRs?: No Is the patient over 65 years of age?: Yes Is the patient on medications that gives them a predisposition to bleeding?: Yes Does the patient use alcohol?: No HAS-BLED Score: 3 CHADSVASC Age: 66-74 Gender: Female Does the patient have a history of CHF?: No Does the patient have a history of Hypertension?: No Does the patient have a history of Stroke/TIA/Thromboembolism?: No Does the patient have a history of Vascular Disease (prior NV, PAD or aortic plaque)?: No Does the patient have a history of Diabetes?: No CHADS VACS Score: 2 Jewel Prediction Score Rsk VTE Active Cancer: No Previous VTE, excluding superficial vein thrombosis: Yes Reduced mobility: No Already known Thrombophilic Condition: Yes With-in last month Trauma and/or Surgery: No Elderly 70 year or older: No Heart and/or Respiratory Failure: No Acute Myocardial infarction and/or Ischemic Stroke: No Acute Infection and/or Rheumatologic Disorder: No Obesity (BMI 30 or greater): Yes Ongoing Hormonal Treatment: No Score: 7 Jewel Score less than 4; Low Risk of VTE Jewel Score 4 or greater; High Risk of VTE Coding Level of Care Code Est Patient Level 1 Diagnoses Current use of anticoagulant therapy Z79.01 Results AMB INR Fingerstick AMB INR Fingerstick 3.4 Last Edit by Gertrude Cadena RN on 11/13/23 13:46 INTERFACE DELAY Assessment & Plan Assessment & Plan (1) Current use of anticoagulant therapy: Onset Date: Code(s): 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
== END 2023-11-13 14:12 | disposition home or self-care (01) ==
LOC: HO.ACS 13:41
PROVIDERS: PCP Internal Medicine; Visit Provider Internal Medicine
DX: Z79.01 Long term (current) use of anticoagulants (principal)

== ENCOUNTER → 2023-11-13 13:41 | Outpatient (BNVA) | payer MEDICARE, MEDICAID, SELFPAY | PROVIDERS: PCP Internal Medicine; Visit Provider Internal Medicine | DX: I26.99 Other pulmonary embolism without acute cor pulmonale (principal); Z79.01 Long term (current) use of anticoagulants; Z51.81 Encounter for therapeutic drug level monitoring | CPT/HCPCS: 85610; 99211 ==

== ENCOUNTER 2023-12-01 08:34 | Outpatient (AMB) | payer MEDICARE, MEDICAID, SELFPAY ==
[2023-12-01 08:42] LABS: Prothrombin Time Whole Bld POC 40.6 sec (11.1-13.5); ~PT, ~INR - Anti Coag Clinic 3.4 (0.9-1.1)
--- NOTE | 2023-12-01 08:47 | MHC.OFFVISCO ---
Intake Intake Visit Reasons: Anticoagulation Allergies Penicillins [PENICILLINS] Adverse Reaction (Unknown, Verified 12/01/23 08:36) Agitation ANTIBIOTIC X2 Allergy (Unknown, Uncoded 12/01/23 08:36) PT UNSURE OF NAMES Medication List - Last Reconciled 12/01/23 by Zahra Sanchez RN albuterol sulfate 90 mcg/actuation 2 puffs inhalation Q4-6H PRN lorazepam 0.5 mg PO TID PRN metoprolol succinate ER 25 mg PO DAILY paroxetine HCl (Paxil) 20 mg PO DAILY warfarin 5 mg See Protocol PO DAILY Nursing Note INR: 3.4 in therapeutic range Medications and supplements reviewed No changes in health, diet, medications, or supplements, Denies any signs and symptoms of bleeding or bruising or clotting. Bleeding, bruising, clotting discussed Nutritional guidance given Dose: 5MG X 3 DAYS/ 2.5MG X 4 DAYS F/U INR: 3 WEEKS Patient verbalizes understanding of instructions given Anti-Coag Initial Assessment Social Hx Patient Tobacco Use Status: Never used Tobacco alcohol intake: never Alcohol intake frequency: does not drink Coding Level of Care Code Est Patient Level 1 Diagnoses Current use of anticoagulant therapy Z79.01 Assessment & Plan Assessment & Plan (1) Current use of anticoagulant therapy: Onset Date: ~2006 Code(s): Z79.01 - alf (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
== END 2023-12-01 08:49 | disposition home or self-care (01) ==
LOC: HO.ACS 08:34
PROVIDERS: PCP Internal Medicine; Visit Provider Internal Medicine
DX: Z79.01 Long term (current) use of anticoagulants (principal)

== ENCOUNTER → 2023-12-01 08:34 | Outpatient (BNVA) | payer MEDICARE, MEDICAID, SELFPAY | PROVIDERS: PCP Internal Medicine; Visit Provider Internal Medicine | DX: I26.99 Other pulmonary embolism without acute cor pulmonale (principal); Z79.01 Long term (current) use of anticoagulants; Z51.81 Encounter for therapeutic drug level monitoring | CPT/HCPCS: 85610; 99211 ==

== ENCOUNTER 2023-12-22 13:59 | Outpatient (AMB) | payer MEDICARE, MEDICAID, SELFPAY ==
--- NOTE | 2023-12-22 14:20 | MHC.OFFVISCO ---
Intake Intake Visit Reasons: Anticoagulation Allergies Penicillins [PENICILLINS] Adverse Reaction (Unknown, Verified 12/22/23 14:09) Agitation ANTIBIOTIC X2 Allergy (Unknown, Uncoded 12/22/23 14:09) PT UNSURE OF NAMES Medication List - Last Reconciled 12/22/23 by Gertrude Cadena RN albuterol sulfate 90 mcg/actuation 2 puffs inhalation Q4-6H PRN lorazepam 0.5 mg PO TID PRN metoprolol succinate ER 25 mg PO DAILY paroxetine HCl (Paxil) 20 mg PO DAILY warfarin 5 mg See Protocol PO DAILY Nursing Note INR 3.7?out of therapeutic range of 2.5-3.5 Medications and supplements reviewed: no changes Patient status: no changes Medications or supplements: no changes Diet: pt states she eats a lot of pickled beets which can raise the INR Denies any signs and symptoms of bleeding or clotting or unusual bruising Bleeding, bruising, clotting discussed Nutritional guidance given: to have greens today and not have any pickled beets Dose: hold today's dose and then resume usual dose of 5mg X3 days and 2.5mg X 4 days. F/U INR Date : 2 weeks?? Patient verbalizing understanding of instructions given. Anti-Coag Initial Assessment Social Hx Patient Tobacco Use Status: Never used Tobacco alcohol intake: never Alcohol intake frequency: does not drink Coding Level of Care Code Est Patient Level 1 Diagnoses Current use of anticoagulant therapy Z79.01 Results AMB INR Fingerstick AMB INR Fingerstick 3.7 Last Edit by Gertrude Cadena RN on 12/22/23 14:16 interface delay Assessment & Plan Assessment & Plan (1) Current use of anticoagulant therapy: Onset Date: ~2006 Code(s): Z79.01 - senior living (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
[2023-12-22 14:28] LABS: Prothrombin Time Whole Bld POC 44.6 sec (11.1-13.5); ~PT, ~INR - Anti Coag Clinic 3.7 (0.9-1.1)
== END 2023-12-22 14:31 | disposition home or self-care (01) ==
LOC: HO.ACS 13:59
PROVIDERS: PCP Internal Medicine; Visit Provider Internal Medicine
DX: Z79.01 Long term (current) use of anticoagulants (principal)

== ENCOUNTER → 2023-12-22 13:59 | Outpatient (BNVA) | payer MEDICARE, MEDICAID, SELFPAY | PROVIDERS: PCP Internal Medicine; Visit Provider Internal Medicine | DX: I26.99 Other pulmonary embolism without acute cor pulmonale (principal); Z79.01 Long term (current) use of anticoagulants; Z51.81 Encounter for therapeutic drug level monitoring | CPT/HCPCS: 85610; 99211 ==

== ENCOUNTER 2024-01-22 14:53 | Outpatient (AMB) | payer MEDICARE, MEDICAID, SELFPAY ==
--- NOTE | 2024-01-22 15:25 | MHC.OFFVISCO ---
Intake Intake Visit Reasons: Anticoagulation Allergies Penicillins [PENICILLINS] Adverse Reaction (Unknown, Verified 01/22/24 14:59) Agitation ANTIBIOTIC X2 Allergy (Unknown, Uncoded 01/22/24 14:59) PT UNSURE OF NAMES Medication List - Last Reconciled 01/22/24 by Zahra Sanchez RN albuterol sulfate 90 mcg/actuation 2 puffs inhalation Q4-6H PRN lorazepam 0.5 mg PO TID PRN metoprolol succinate ER 25 mg PO DAILY paroxetine HCl (Paxil) 20 mg PO DAILY warfarin 5 mg See Protocol PO DAILY Nursing Note INR: 4.7 OUT OF therapeutic range Medications and supplements reviewed PT HAS NOT BEEN TAKING PAXIL DUE TO INSURANCE NOT COVERING AND TRYING TO SWITCH HER TO A GENERIC- SO STATED SHE DECIDED TO STAY OFF IT AND SEE IF SHE CAN ADJUST WITHOUT IT, SHE HAS PRN LORAZEPAM, SHE SAYS SHE HAS NOT FELT LIKE DOING MUCH AND JUST STAYS IN HER ROOM WITH HER CATS SHE HAS BEEN COMPLAINING OF HER HEAD MAKING NOISES AND VIBRATING AND HER VISION GETTING WORSE NEEDING TO WEAR 2 PAIRS OF GLASSES. SHE STATES MD ORDERD MRI - SHE WAS ENC TO ERICH THE APPT [facility]EN AND TO GO TO ER IF SYMPTOMS PERSIST OR WORSEN R/O RISK OF STROKE. Denies any signs and symptoms of bleeding or bruising or clotting. Bleeding, bruising, clotting discussed Nutritional guidance given- EAT SOME KIND OF GREENS TODAY Dose: HOLD TODAY' DOSE AND DECREASE WEEKLY DOSE: 5MG X 2 DAYS/ 2.5MG X 5 DAYS F/U INR: 01/26/24 Patient verbalizes understanding of instructions given Anti-Coag Initial Assessment Social Hx Patient Tobacco Use Status: Never used Tobacco alcohol intake: never Alcohol intake frequency: does not drink Coding Level of Care Code Est Patient Level 1 Diagnoses Current use of anticoagulant therapy Z79.01 Results AMB INR Fingerstick AMB INR Fingerstick 4.7 Last Edit by Zahra Sanchez RN on 01/22/24 15:12 manual entry Assessment & Plan Assessment & Plan (1) Current use of anticoagulant therapy: Onset Date: ~2006 Code(s): 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
[2024-01-23 08:31] LABS: Prothrombin Time Whole Bld POC 56.1 sec (11.1-13.5); ~PT, ~INR - Anti Coag Clinic 4.7 (0.9-1.1)
== END 2024-01-22 15:35 | disposition home or self-care (01) ==
LOC: HO.ACS 14:53
PROVIDERS: PCP Internal Medicine; Visit Provider Internal Medicine
DX: Z79.01 Long term (current) use of anticoagulants (principal)

== ENCOUNTER → 2024-01-22 14:53 | Outpatient (BNVA) | payer MEDICARE, MEDICAID, SELFPAY | PROVIDERS: PCP Internal Medicine; Visit Provider Internal Medicine | DX: I26.99 Other pulmonary embolism without acute cor pulmonale (principal); Z51.81 Encounter for therapeutic drug level monitoring; Z79.01 Long term (current) use of anticoagulants | CPT/HCPCS: 85610; 99211 ==

== ENCOUNTER 2024-01-26 14:52 | Outpatient (AMB) | payer MEDICARE, MEDICAID, SELFPAY ==
[2024-01-26 15:02] LABS: Prothrombin Time Whole Bld POC 47.9 sec (11.1-13.5)
--- NOTE | 2024-01-26 15:19 | MHC.OFFVISCO ---
Intake Intake Visit Reasons: Anticoagulation Allergies Penicillins [PENICILLINS] Adverse Reaction (Unknown, Verified 01/26/24 14:53) Agitation ANTIBIOTIC X2 Allergy (Unknown, Uncoded 01/26/24 14:53) PT UNSURE OF NAMES Medication List - Last Reconciled 01/26/24 by Zahra Sanchez RN albuterol sulfate 90 mcg/actuation 2 puffs inhalation Q4-6H PRN lorazepam 0.5 mg PO TID PRN metoprolol succinate ER 25 mg PO DAILY warfarin 5 mg See Protocol PO DAILY Nursing Note INR: 4.0 in therapeutic range Medications and supplements reviewed No changes in health, diet, medications, or supplements, Denies any signs and symptoms of bleeding or bruising or clotting. Bleeding, bruising, clotting discussed Nutritional guidance given -ENC GREEN AND MILK CHOCOLATE Dose: DECRASE DOSE 5MG X 2 DAYS/ 2.5MG X 5 DAYS F/U INR: 1 WEEK Patient verbalizes understanding of instructions given Anti-Coag Initial Assessment Social Hx Patient Tobacco Use Status: Never used Tobacco alcohol intake: never Alcohol intake frequency: does not drink Coding Level of Care Code Est Patient Level 1 Diagnoses Current use of anticoagulant therapy Z79.01 Results AMB INR Fingerstick AMB INR Fingerstick 4.0 Last Edit by Zahra Sanchez RN on 01/26/24 15:03 MANUAL ENTRY Assessment & Plan Assessment & Plan (1) Current use of anticoagulant therapy: Onset Date: ~2006 Code(s): Z79.01 - [facility] (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
== END 2024-01-26 15:25 | disposition home or self-care (01) ==
LOC: HO.ACS 14:52
PROVIDERS: PCP Internal Medicine; Visit Provider Internal Medicine
DX: Z79.01 Long term (current) use of anticoagulants (principal)

== ENCOUNTER → 2024-01-26 14:52 | Outpatient (BNVA) | payer MEDICARE, MEDICAID, SELFPAY | PROVIDERS: PCP Internal Medicine; Visit Provider Internal Medicine | DX: I26.99 Other pulmonary embolism without acute cor pulmonale (principal); Z51.81 Encounter for therapeutic drug level monitoring; Z79.01 Long term (current) use of anticoagulants | CPT/HCPCS: 85610; 99211 ==

== ENCOUNTER 2024-02-02 14:41 | Outpatient (AMB) | payer MEDICARE, MEDICAID, SELFPAY ==
--- NOTE | 2024-02-02 15:02 | MHC.OFFVISCO ---
Intake Intake Visit Reasons: Anticoagulation Allergies Penicillins [PENICILLINS] Adverse Reaction (Unknown, Verified 02/02/24 14:42) Agitation ANTIBIOTIC X2 Allergy (Unknown, Uncoded 02/02/24 14:42) PT UNSURE OF NAMES Medication List - Last Reconciled 02/02/24 by Zahra Sanchez RN albuterol sulfate 90 mcg/actuation 2 puffs inhalation Q4-6H PRN lorazepam 0.5 mg PO TID PRN metoprolol succinate ER 25 mg PO DAILY warfarin 5 mg See Protocol PO DAILY Nursing Note INR 4.6 out of therapeutic range Medications and supplements reviewed Patient status: STILL waiting for new med for anxiety Medications or supplements: still off paxil or liquid anti-anxiety Diet: random - mostly ice cream and cereal Denies any signs and symptoms of bleeding or clotting or unusual bruising Bleeding, bruising, clotting discussed Nutritional guidance given: enc to to eat foods with b12 and magnesium to help with her anxiety and enc to discuss with MD, Eat greens today Dose: hold warfarin today and decrease to 2.5mg x 6 days, 5mg x 1 day F/U INR Date : 02/05/24 ?? Patient verbalizing understanding of instructions given. Anti-Coag Initial Assessment Social Hx Patient Tobacco Use Status: Never used Tobacco alcohol intake: never Alcohol intake frequency: does not drink Coding Level of Care Code Est Patient Level 1 Diagnoses Current use of anticoagulant therapy Z79.01 Results AMB INR Fingerstick AMB INR Fingerstick 4.6 Last Edit by Zahra Sanchez RN on 02/02/24 14:51 MANUAL ENTRY Assessment & Plan Assessment & Plan (1) Current use of anticoagulant therapy: Onset Date: Code(s): Z79.01 - residential (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
[2024-02-02 15:48] LABS: Prothrombin Time Whole Bld POC 55.3 sec (11.1-13.5); ~PT, ~INR - Anti Coag Clinic 4.6 (0.9-1.1)
== END 2024-02-02 15:14 | disposition home or self-care (01) ==
LOC: HO.ACS 14:41
PROVIDERS: PCP Internal Medicine; Visit Provider Internal Medicine
DX: Z79.01 Long term (current) use of anticoagulants (principal)

== ENCOUNTER → 2024-02-02 14:41 | Outpatient (BNVA) | payer MEDICARE, MEDICAID, SELFPAY | PROVIDERS: PCP Internal Medicine; Visit Provider Internal Medicine | DX: I26.99 Other pulmonary embolism without acute cor pulmonale (principal); Z79.01 Long term (current) use of anticoagulants; Z51.81 Encounter for therapeutic drug level monitoring | CPT/HCPCS: 85610; 99211 ==

== ENCOUNTER 2024-02-05 14:45 | Outpatient (AMB) | payer MEDICARE, MEDICAID, SELFPAY ==
[2024-02-05 14:51] LABS: Prothrombin Time Whole Bld POC 35.9 sec (11.1-13.5)
--- NOTE | 2024-02-05 15:04 | MHC.OFFVISCO ---
Intake Intake Visit Reasons: Anticoagulation Allergies Penicillins [PENICILLINS] Adverse Reaction (Unknown, Verified 02/05/24 14:46) Agitation ANTIBIOTIC X2 Allergy (Unknown, Uncoded 02/05/24 14:46) PT UNSURE OF NAMES Medication List - Last Reconciled 02/05/24 by Gertrude Arceo, RN lorazepam 0.5 mg PO TID PRN metoprolol succinate ER 25 mg PO DAILY sertraline 25 mg PO DAILY warfarin 5 mg See Protocol PO DAILY Nursing Note Amb to [facility] feeling ok prev elevated INR, dose held recheck today Medications and supplements reviewed, pt sts she has been off paxil for many weeks cold roby as they could not get it anymore has started over the last couple days liquid sertraline ( can raise INR) sts diet has not been great as she had GI upset with withdrawal of Paxil Denies any signs and symptoms of bleeding or bruising or clotting. INR 3.0 in therapeutic range (2.5-3.5) to continue on usual dose for now 5mg x 1 day and 2.5mg all other days as delayed increase in INR can occur instructed will need to monitor INR weekly Nutritional guidance given as appetite improves balance greens and reds in diet and be consistent F/U INR: 1 week Patient verbalizes understanding of instructions given Anti-Coag Initial Assessment Social Hx Patient Tobacco Use Status: Never used Tobacco alcohol intake: never Alcohol intake frequency: does not drink Coding Level of Care Code Est Patient Level 1 Diagnoses Current use of anticoagulant therapy Z79.01 Time Spent (min) 15 Assessment & Plan Assessment & Plan (1) Current use of anticoagulant therapy: Onset Date: ~2006 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
== END 2024-02-05 15:10 | disposition home or self-care (01) ==
LOC: HO.ACS 14:45
PROVIDERS: PCP Internal Medicine; Visit Provider Internal Medicine
DX: Z79.01 Long term (current) use of anticoagulants (principal)

== ENCOUNTER → 2024-02-05 14:45 | Outpatient (BNVA) | payer MEDICARE, MEDICAID, SELFPAY | PROVIDERS: PCP Internal Medicine; Visit Provider Internal Medicine | DX: I26.99 Other pulmonary embolism without acute cor pulmonale (principal); Z51.81 Encounter for therapeutic drug level monitoring; Z79.01 Long term (current) use of anticoagulants | CPT/HCPCS: 85610; 99211 ==

== ENCOUNTER 2024-02-16 14:07 | Outpatient (AMB) | payer MEDICARE, MEDICAID, SELFPAY ==
[2024-02-16 14:36] LABS: Prothrombin Time Whole Bld POC 34.7 sec (11.1-13.5); ~PT, ~INR - Anti Coag Clinic 2.9 (0.9-1.1)
--- NOTE | 2024-02-16 14:47 | MHC.OFFVISCO ---
Intake Intake Visit Reasons: Anticoagulation Allergies Penicillins [PENICILLINS] Adverse Reaction (Unknown, Verified 02/16/24 14:27) Agitation ANTIBIOTIC X2 Allergy (Unknown, Uncoded 02/16/24 14:27) PT UNSURE OF NAMES Medication List - Last Reconciled 02/16/24 by Zahra Sanchez RN lorazepam 0.5 mg PO TID PRN metoprolol succinate ER 25 mg PO DAILY sertraline 12.5 mg PO DAILY warfarin 5 mg See Protocol PO DAILY Nursing Note INR: 2.9 in therapeutic range Medications and supplements reviewed- She tried to start sertraline at 25mg daily but states she didnt feel right - so she cut it down to half dose 12.5mg daily. She stated she just restarted the dose last night she stated that when she started it stopped the vibrations she was feeling in her head. changes in health, diet, medications, or supplements, Denies any signs and symptoms of bleeding or bruising or clotting. Bleeding, bruising, clotting discussed Nutritional guidance given - review food list weekly, eat a mix of fruits and vegetables Dose: keep same for now 5mg x 1 day/ 2.5mg x 6 days F/U INR: 10 days Patient verbalizes understanding of instructions given Anti-Coag Initial Assessment Social Hx Patient Tobacco Use Status: Never used Tobacco alcohol intake: never Alcohol intake frequency: does not drink Coding Level of Care Code Est Patient Level 1 Diagnoses Current use of anticoagulant therapy Z79.01 Assessment & Plan Assessment & Plan (1) Current use of anticoagulant therapy: Onset Date: ~2006 Code(s): Z79.01 - residential (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
== END 2024-02-16 14:51 | disposition home or self-care (01) ==
LOC: HO.ACS 14:07
PROVIDERS: PCP Internal Medicine; Visit Provider Internal Medicine
DX: Z79.01 Long term (current) use of anticoagulants (principal)

== ENCOUNTER → 2024-02-16 14:07 | Outpatient (BNVA) | payer MEDICARE, MEDICAID, SELFPAY | PROVIDERS: PCP Internal Medicine; Visit Provider Internal Medicine | DX: I26.99 Other pulmonary embolism without acute cor pulmonale (principal); Z79.01 Long term (current) use of anticoagulants; Z51.81 Encounter for therapeutic drug level monitoring | CPT/HCPCS: 85610; 99211 ==

== ENCOUNTER 2024-02-26 14:29 | Outpatient (AMB) | payer MEDICARE, MEDICAID, SELFPAY ==
[2024-02-26 14:36] LABS: Prothrombin Time Whole Bld POC 26.9 sec (11.1-13.5); ~PT, ~INR - Anti Coag Clinic 2.2 (0.9-1.1)
--- NOTE | 2024-02-26 14:43 | MHC.OFFVISCO ---
Intake Intake Visit Reasons: Anticoagulation Allergies Penicillins [PENICILLINS] Adverse Reaction (Unknown, Verified 02/26/24 14:30) Agitation ANTIBIOTIC X2 Allergy (Unknown, Uncoded 02/26/24 14:30) PT UNSURE OF NAMES Medication List - Last Reconciled 02/26/24 by Zahra Sanchez RN lorazepam 0.5 mg PO TID PRN metoprolol succinate ER 25 mg PO DAILY sertraline 12.5 mg PO DAILY warfarin 5 mg See Protocol PO DAILY Nursing Note INR: 2.2 OUT OF therapeutic range Medications and supplements reviewed still on sertraline liquid only taking 1/2 dose right now - states the vibration sensation has stopped, pt seems more calm during appts - even though she has stress at home dealing with family young adults livng with her Denies any signs and symptoms of bleeding or bruising or clotting. Bleeding, bruising, clotting discussed Nutritional guidance given - Eat mix a fruits and vegetables Dose: increase weekly dose 5mg x 2 days/ 2.5mg x 5 days F/U INR: 2 weeks Patient verbalizes understanding of instructions given Anti-Coag Initial Assessment Social Hx Patient Tobacco Use Status: Never used Tobacco alcohol intake: never Alcohol intake frequency: does not drink Coding Level of Care Code Est Patient Level 1 Diagnoses Current use of anticoagulant therapy Z79.01 Results AMB INR Fingerstick AMB INR Fingerstick 2.2 Last Edit by Zahra Sanchez RN on 02/26/24 14:38 MANUAL ENTRY Assessment & Plan Assessment & Plan (1) Current use of anticoagulant therapy: Onset Date: ~2006 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
== END 2024-02-26 14:47 | disposition home or self-care (01) ==
LOC: HO.ACS 14:29
PROVIDERS: PCP Internal Medicine; Visit Provider Internal Medicine
DX: Z79.01 Long term (current) use of anticoagulants (principal)

== ENCOUNTER → 2024-02-26 14:29 | Outpatient (BNVA) | payer MEDICARE, MEDICAID, SELFPAY | PROVIDERS: PCP Internal Medicine; Visit Provider Internal Medicine | DX: I26.99 Other pulmonary embolism without acute cor pulmonale (principal); Z79.01 Long term (current) use of anticoagulants; Z51.81 Encounter for therapeutic drug level monitoring | CPT/HCPCS: 85610; 99211 ==

== ENCOUNTER 2024-03-11 15:33 | Outpatient (AMB) | payer MEDICARE, MEDICAID, SELFPAY ==
--- NOTE | 2024-03-11 15:46 | MHC.OFFVISCO ---
Intake Intake Visit Reasons: Anticoagulation Allergies Penicillins [PENICILLINS] Adverse Reaction (Unknown, Verified 03/11/24 15:34) Agitation ANTIBIOTIC X2 Allergy (Unknown, Uncoded 03/11/24 15:34) PT UNSURE OF NAMES Medication List - Last Reconciled 03/11/24 by Zahra Sanchez RN lorazepam 0.5 mg PO TID PRN metoprolol succinate ER 25 mg PO DAILY sertraline 12.5 mg PO DAILY warfarin 5 mg See Protocol PO DAILY Nursing Note INR: 3.1 in therapeutic range Medications and supplements reviewed No changes in health, diet, medications, or supplements, Denies any signs and symptoms of bleeding or bruising or clotting. Bleeding, bruising, clotting discussed Nutritional guidance given - Eat a mix of fruits and vegetables Dose: 5MG X 2 DAYS/ 2.5MG X 5 DAYS F/U INR: 2 WEEKS Patient verbalizes understanding of instructions given Anti-Coag Initial Assessment Social Hx Patient Tobacco Use Status: Never used Tobacco alcohol intake: never Alcohol intake frequency: does not drink Coding Level of Care Code Est Patient Level 1 Diagnoses Current use of anticoagulant therapy Z79.01 Results AMB INR Fingerstick AMB INR Fingerstick 3.1 Last Edit by Zahra Sanchez RN on 03/11/24 15:40 MANUAL ENTRY Assessment & Plan Assessment & Plan (1) Current use of anticoagulant therapy: Onset Date: ~2006 Code(s): Z79.01 - group home (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
[2024-03-12 09:10] LABS: Prothrombin Time Whole Bld POC 37.4 sec (11.1-13.5); ~PT, ~INR - Anti Coag Clinic 3.1 (0.9-1.1)
== END 2024-03-11 15:49 | disposition home or self-care (01) ==
LOC: HO.ACS 15:33
PROVIDERS: PCP Internal Medicine; Visit Provider Internal Medicine
DX: Z79.01 Long term (current) use of anticoagulants (principal)

== ENCOUNTER → 2024-03-11 15:33 | Outpatient (BNVA) | payer MEDICARE, MEDICAID, SELFPAY | PROVIDERS: PCP Internal Medicine; Visit Provider Internal Medicine | DX: I26.99 Other pulmonary embolism without acute cor pulmonale (principal); Z79.01 Long term (current) use of anticoagulants; Z51.81 Encounter for therapeutic drug level monitoring | CPT/HCPCS: 85610; 99211 ==

== ENCOUNTER 2024-03-25 13:25 | Outpatient (AMB) | payer MEDICARE, MEDICAID, SELFPAY ==
[2024-03-25 13:33] LABS: Prothrombin Time Whole Bld POC 35.9 sec (11.1-13.5)
--- NOTE | 2024-03-25 13:38 | MHC.OFFVISCO ---
Intake Intake Visit Reasons: Anticoagulation Allergies Penicillins [PENICILLINS] Adverse Reaction (Unknown, Verified 03/25/24 13:28) Agitation ANTIBIOTIC X2 Allergy (Unknown, Uncoded 03/25/24 13:28) PT UNSURE OF NAMES Medication List - Last Reconciled 03/25/24 by Gertrude Cadena, RN lorazepam 0.5 mg PO TID PRN metoprolol succinate ER 25 mg PO DAILY sertraline 12.5 mg PO DAILY warfarin 5 mg See Protocol PO DAILY Nursing Note INR: 3.0 in therapeutic range of 2.5-3.5 Medications and supplements reviewed No changes in health, diet, medications, or supplements, Denies any signs and symptoms of bleeding or bruising or clotting. Bleeding, bruising, clotting discussed Nutritional guidance given to continue to balance greens and reds Dose: 5mg X 2 days and 2.5mg X 5 days F/U INR: 3 weeks Patient verbalizes understanding of instructions given Anti-Coag Initial Assessment Social Hx Patient Tobacco Use Status: Never used Tobacco alcohol intake: never Alcohol intake frequency: does not drink Coding Level of Care Code Est Patient Level 1 Diagnoses Current use of anticoagulant therapy Z79.01 Results AMB INR Fingerstick AMB INR Fingerstick 3.0 Last Edit by Gertrude Cadena RN on 03/25/24 13:33 interface delay Assessment & Plan Assessment & Plan (1) Current use of anticoagulant therapy: Onset Date: ~2006 Code(s): Z79.01 - halfway (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
== END 2024-03-25 13:41 | disposition home or self-care (01) ==
LOC: HO.ACS 13:25
PROVIDERS: PCP Internal Medicine; Visit Provider Internal Medicine
DX: Z79.01 Long term (current) use of anticoagulants (principal)

== ENCOUNTER → 2024-03-25 13:25 | Outpatient (BNVA) | payer MEDICARE, MEDICAID, SELFPAY | PROVIDERS: PCP Internal Medicine; Visit Provider Internal Medicine | DX: I26.99 Other pulmonary embolism without acute cor pulmonale (principal); Z51.81 Encounter for therapeutic drug level monitoring; Z79.01 Long term (current) use of anticoagulants | CPT/HCPCS: 85610; 99211 ==

== ENCOUNTER 2024-04-30 13:04 | Outpatient (AMB) | payer MEDICARE, MEDICAID, SELFPAY ==
[2024-04-30 13:11] LABS: Prothrombin Time Whole Bld POC 33.2 sec (11.1-13.5); ~PT, ~INR - Anti Coag Clinic 2.8 (0.9-1.1)
--- NOTE | 2024-04-30 13:20 | MHC.OFFVISCO ---
Intake Intake Visit Reasons: Anticoagulation Allergies Penicillins [PENICILLINS] Adverse Reaction (Unknown, Verified 04/30/24 13:07) Agitation ANTIBIOTIC X2 Allergy (Unknown, Uncoded 04/30/24 13:07) PT UNSURE OF NAMES Medication List - Last Reconciled 04/30/24 by Gertrude Cadena, RN lorazepam 0.5 mg PO TID PRN metoprolol succinate ER 25 mg PO DAILY warfarin 5 mg See Protocol PO DAILY Nursing Note INR: 2.8 in therapeutic range of 2.5-3.5 Medications and supplements reviewed. Pt stopped Sertraline on her own. She stated she weaned herself from the med. INR could go down due to stopping Sertraline. No changes in health, diet, or supplements, Denies any signs and symptoms of bleeding or bruising or clotting. Bleeding, bruising, clotting discussed Nutritional guidance given to continue to balance reds and greens Dose: usual dose of 5mg X 2 days and 2.5mg X 5 days but will retest in 1 week to f/u on INR since Sertraline stopped F/U INR: 05/07/24 Patient verbalizes understanding of instructions given Anti-Coag Initial Assessment Social Hx Patient Tobacco Use Status: Never used Tobacco alcohol intake: never Alcohol intake frequency: does not drink Coding Level of Care Code Est Patient Level 1 Diagnoses Current use of anticoagulant therapy Z79.01 Assessment & Plan Assessment & Plan (1) Current use of anticoagulant therapy: Onset Date: ~2006 Code(s): 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
== END 2024-04-30 13:45 | disposition home or self-care (01) ==
LOC: HO.ACS 13:04
PROVIDERS: PCP Internal Medicine; Visit Provider Internal Medicine
DX: Z79.01 Long term (current) use of anticoagulants (principal)

== ENCOUNTER → 2024-04-30 13:04 | Outpatient (BNVA) | payer MEDICARE, MEDICAID, SELFPAY | PROVIDERS: PCP Internal Medicine; Visit Provider Internal Medicine | DX: I26.99 Other pulmonary embolism without acute cor pulmonale (principal); Z79.01 Long term (current) use of anticoagulants; Z51.81 Encounter for therapeutic drug level monitoring | CPT/HCPCS: 85610; 99211 ==

== ENCOUNTER 2024-05-07 13:20 | Outpatient (AMB) | payer MEDICARE, MEDICAID, SELFPAY ==
[2024-05-07 13:34] LABS: Prothrombin Time Whole Bld POC 42.6 sec (11.1-13.5); ~PT, ~INR - Anti Coag Clinic 3.5 (0.9-1.1)
--- NOTE | 2024-05-07 13:41 | MHC.OFFVISCO ---
Intake Intake Visit Reasons: Anticoagulation Allergies Penicillins [PENICILLINS] Adverse Reaction (Unknown, Verified 05/07/24 13:28) Agitation ANTIBIOTIC X2 Allergy (Unknown, Uncoded 05/07/24 13:28) PT UNSURE OF NAMES Medication List - Last Reconciled 05/07/24 by Gertrude Cadena, RN lorazepam 0.5 mg PO TID PRN metoprolol succinate ER 25 mg PO DAILY warfarin 5 mg See Protocol PO DAILY Nursing Note INR: 3.5 in therapeutic range of 2.5-3.5 Medications and supplements reviewed No changes in health, diet, medications, or supplements, Denies any signs and symptoms of bleeding or bruising or clotting. 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
== END 2024-05-07 13:44 | disposition home or self-care (01) ==
LOC: HO.ACS 13:20
PROVIDERS: PCP Internal Medicine; Visit Provider Internal Medicine
DX: Z79.01 Long term (current) use of anticoagulants (principal)

== ENCOUNTER → 2024-05-07 13:20 | Outpatient (BNVA) | payer MEDICARE, MEDICAID, SELFPAY | PROVIDERS: PCP Internal Medicine; Visit Provider Internal Medicine | DX: I26.99 Other pulmonary embolism without acute cor pulmonale (principal); Z79.01 Long term (current) use of anticoagulants; Z51.81 Encounter for therapeutic drug level monitoring | CPT/HCPCS: 85610; 99211 ==

== ENCOUNTER → 2024-05-17 15:15 | Outpatient (BNV) | payer MEDICARE, MEDICAID, SELFPAY | PROVIDERS: PCP Internal Medicine; Visit Provider Internal Medicine | DX: Z12.31 Encounter for screening mammogram for malignant neoplasm of breast (principal) | CPT/HCPCS: 77063; 77067 ==

== ENCOUNTER 2024-05-17 15:18 | Outpatient (REF) | payer MEDICARE, MEDICAID, SELFPAY ==
--- NOTE | ~2024-05-17 | MM_ITS ---
EXAMINATION: MM SCREENING DIGITAL BREAST TOMOSYNTHESIS, BILATERAL CLINICAL INFORMATION: Screening. Asymptomatic. COMPARISON: Mammography: Comparison is made with available priors TECHNIQUE: Digital breast mammography with tomosynthesis is performed in both the craniocaudal and mediolateral oblique views along with computer-aided detection (CAD). FINDINGS: There are scattered areas of fibroglandular density (ACR BI-RADS breast composition Category b). There are no significant masses, abnormal calcifications, or other abnormalities. MM/MM tomosynthesis screening BI IMPRESSION: No mammographic evidence of malignancy. ASSESSMENT: BI-RADS BI-RADS 1 - Negative RECOMMENDATION: Routine annual mammography screening. 1 year F/U This examination should not preclude the clinical evaluation of a suspicious palpable abnormality. This patient's information was entered into a reminder system with a target due date for their next mammogram. Electronically signed by: Ciara Gunter DO 06/08/2024 10:38 PM EDT
== END 2024-05-17 15:19 | disposition home or self-care (01) ==
LOC: HO.MAMMO 15:18
PROVIDERS: PCP Internal Medicine; Visit Provider Internal Medicine
DX: Z12.31 Encounter for screening mammogram for malignant neoplasm of breast (principal)
CPT/HCPCS: 77063; 77067

== ENCOUNTER 2024-05-21 13:03 | Outpatient (AMB) | payer MEDICARE, MEDICAID, SELFPAY ==
--- NOTE | 2024-05-21 13:25 | MHC.OFFVISCO ---
Intake Intake Visit Reasons: Anticoagulation Allergies Penicillins [PENICILLINS] Adverse Reaction (Unknown, Verified 05/21/24 13:22) Agitation ANTIBIOTIC X2 Allergy (Unknown, Uncoded 05/21/24 13:22) PT UNSURE OF NAMES Medication List - Last Reconciled 05/21/24 by Fidelina Tiwari RN lorazepam 0.5 mg PO TID PRN metoprolol succinate ER 25 mg PO DAILY warfarin 5 mg See Protocol PO DAILY Nursing Note INR: 3.0- in therapeutic range of 2.5-3.5 Medications and supplements reviewed- no changes No changes in health, diet, medications, or supplements, Denies any signs and symptoms of bleeding or bruising or clotting. Bleeding, bruising, clotting discussed Nutritional guidance given Dose: 5mg x 2, 2.5mg x 5 F/U INR: 3 weeks Patient verbalizes understanding of instructions given Anti-Coag Initial Assessment Social Hx Patient Tobacco Use Status: Never used Tobacco alcohol intake: never Alcohol intake frequency: does not drink Coding Level of Care Code Est Patient Level 1 Diagnoses Current use of anticoagulant therapy Z79.01 Results AMB INR Fingerstick AMB INR Fingerstick 3.0 Last Edit by Fidelina Tiwari RN on 05/21/24 13:27 interface delay Assessment & Plan Assessment & Plan (1) Current use of anticoagulant therapy: Onset Date: ~2006 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
[2024-05-21 13:26] LABS: Prothrombin Time Whole Bld POC 35.7 sec (11.1-13.5)
== END 2024-05-21 14:14 | disposition home or self-care (01) ==
LOC: HO.ACS 13:03
PROVIDERS: PCP Internal Medicine; Visit Provider Internal Medicine
DX: Z79.01 Long term (current) use of anticoagulants (principal)

== ENCOUNTER → 2024-05-21 13:03 | Outpatient (BNVA) | payer MEDICARE, MEDICAID, SELFPAY | PROVIDERS: PCP Internal Medicine; Visit Provider Internal Medicine | DX: I26.99 Other pulmonary embolism without acute cor pulmonale (principal); Z79.01 Long term (current) use of anticoagulants; Z51.81 Encounter for therapeutic drug level monitoring | CPT/HCPCS: 85610; 99211 ==

== ENCOUNTER 2024-06-11 14:40 | Outpatient (AMB) | payer MEDICARE, MEDICAID, SELFPAY ==
--- NOTE | 2024-06-11 15:03 | MHC.OFFVISCO ---
Intake Intake Visit Reasons: Anticoagulation Allergies Penicillins [PENICILLINS] Adverse Reaction (Unknown, Verified 06/11/24 14:41) Agitation ANTIBIOTIC X2 Allergy (Unknown, Uncoded 06/11/24 14:41) PT UNSURE OF NAMES Medication List - Last Reconciled 06/11/24 by Gertrude Cadena, RN lorazepam 0.5 mg PO TID PRN metoprolol succinate ER 25 mg PO DAILY warfarin 5 mg See Protocol PO DAILY Nursing Note INR: 3.0 in therapeutic range of 2.5-3.5 Medications and supplements reviewed No changes in health, diet, medications, or supplements, Denies any signs and symptoms of bleeding or bruising or clotting. Bleeding, bruising, clotting discussed Nutritional guidance given Dose: Keep same same dose of 2.5mg X 5 days and 5mg X 2 days F/U INR: 3 weeks Patient verbalizes understanding of instructions given Anti-Coag Initial Assessment Social Hx Patient Tobacco Use Status: Never used Tobacco alcohol intake: never Alcohol intake frequency: does not drink Coding Level of Care Code Est Patient Level 1 Diagnoses Current use of anticoagulant therapy Z79.01 Results AMB INR Fingerstick AMB INR Fingerstick 3.0 Last Edit by Gertrude Cadena RN on 06/11/24 14:48 interface delay Assessment & Plan Assessment & Plan (1) Current use of anticoagulant therapy: Onset Date: ~2006 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
== END 2024-06-11 15:08 | disposition home or self-care (01) ==
LOC: HO.ACS 14:40
PROVIDERS: PCP Internal Medicine; Visit Provider Internal Medicine
DX: Z79.01 Long term (current) use of anticoagulants (principal)

== ENCOUNTER → 2024-06-11 14:40 | Outpatient (BNVA) | payer MEDICARE, MEDICAID, SELFPAY | PROVIDERS: PCP Internal Medicine; Visit Provider Internal Medicine | DX: I26.99 Other pulmonary embolism without acute cor pulmonale (principal); Z79.01 Long term (current) use of anticoagulants; Z51.81 Encounter for therapeutic drug level monitoring | CPT/HCPCS: 85610; 99211 ==

== ENCOUNTER 2024-07-01 21:03 | Emergency (ER) | payer OTHER, SELFPAY ==
--- NOTE | ~2024-07-01 | CT_ITS ---
EXAMINATION: CT HEAD WITHOUT CONTRAST CT CERVICAL SPINE WITHOUT CONTRAST CLINICAL INFORMATION: Head strike. COMPARISON: None available. TECHNIQUE: Contiguous axial imaging was performed through the head and cervical spine without intravenous administration of contrast. Sagittal and coronal reformatted images also obtained. This CT examination was performed using dose optimization techniques as appropriate, variously including the following: *Automated exposure control *Adjustment of mA and/or kV according to patient size (this includes techniques or standardized protocols for targeted exams where dose is matched to indication/reason for exam; i.e. extremities or head) *Use of iterative reconstruction technique DLP: 928 mGy-cm FINDINGS: The lateral, third and fourth ventricles are normally outlined. The cortical sulci and basal cisterns are normally outlined as well. There is no acute territorial defect, hemorrhage or midline shift. The extra-axial spaces are unremarkable. Calvarium/scalp: Intact. Maxillofacial sinuses and mastoids: Clear as visualized. Cervical spine: The alignment is normal. There is minimal diffuse cervical disc degenerative change with minimal loss of disc space and minimal osteophyte formation associated with mild diffuse facet osteoarthritic hypertrophic change with mild neuroforaminal narrowing at C4-5 to the left. The bone mineralization is within normal limits. No fracture is seen. The soft tissues are unremarkable. The visualized upper lung garzon are clear. CT/CT cervical spine wo IV con IMPRESSION: 1. No acute intracranial process seen. 2. There is no acute fracture or malalignment of the cervical spine. There is mild diffuse cervical spondylosis with mild neuroforaminal narrowing at C4-5 to the left. Electronically signed by: Siddhartha Cruz MD 07/01/2024 11:41 PM EDT
--- NOTE | ~2024-07-01 | CT_ITS ---
EXAMINATION: CT HEAD WITHOUT CONTRAST CT CERVICAL SPINE WITHOUT CONTRAST CLINICAL INFORMATION: Head strike. COMPARISON: None available. TECHNIQUE: Contiguous axial imaging was performed through the head and cervical spine without intravenous administration of contrast. Sagittal and coronal reformatted images also obtained. This CT examination was performed using dose optimization techniques as appropriate, variously including the following: *Automated exposure control *Adjustment of mA and/or kV according to patient size (this includes techniques or standardized protocols for targeted exams where dose is matched to indication/reason for exam; i.e. extremities or head) *Use of iterative reconstruction technique DLP: 928 mGy-cm FINDINGS: The lateral, third and fourth ventricles are normally outlined. The cortical sulci and basal cisterns are normally outlined as well. There is no acute territorial defect, hemorrhage or midline shift. The extra-axial spaces are unremarkable. Calvarium/scalp: Intact. Maxillofacial sinuses and mastoids: Clear as visualized. Cervical spine: The alignment is normal. There is minimal diffuse cervical disc degenerative change with minimal loss of disc space and minimal osteophyte formation associated with mild diffuse facet osteoarthritic hypertrophic change with mild neuroforaminal narrowing at C4-5 to the left. The bone mineralization is within normal limits. No fracture is seen. The soft tissues are unremarkable. The visualized upper lung garzon are clear. CT/CT head/brain wo IV con IMPRESSION: 1. No acute intracranial process seen. 2. There is no acute fracture or malalignment of the cervical spine. There is mild diffuse cervical spondylosis with mild neuroforaminal narrowing at C4-5 to the left. Electronically signed by: Siddhartha Cruz MD 07/01/2024 11:41 PM EDT
[2024-07-01 21:26] VITALS: PULSE 71; RESP 20; TEMP 36.2; O2SAT 97; BMI 30.1
[2024-07-01 21:50] LABS: MANUAL DIFF FLAG NO
[2024-07-01 21:51] LABS: Basophils Absolute Auto 0.1 X10*3/uL (0.0-0.2); Basophils Percent Auto 0.9 % (0-2); Eosinophils Absolute Auto 0.1 X10*3/uL (0.0-0.4); Eosinophils Percent Auto 1.9 % (0-4); Hematocrit 38.4 % (37.0-47.0); Hemoglobin 13.4 g/dl (12.0-16.0); Imm Gran Abs Auto 0.01 X10*3/uL (0.00-0.03); Imm Gran Pct Auto 0.2 % (0.0-0.4); Lymphocytes Absolute Auto 2.2 X10*3/uL (1.2-4.9); Lymphocytes Percent Auto 37.7 % (20-40); Mean Corpuscular HGB Conc 34.9 g/dl (31.0-35.0); Mean Corpuscular Hemoglobin 29.8 pg (27.0-33.0); Mean Corpuscular Volume 85.5 fL (80.0-98.0); Mean Platelet Volume 9.9 fL (9.4-12.3); Monocytes Absolute Auto 0.4 X10*3/uL (0.1-1.2); Monocytes Percent Auto 6.1 % (2-11); Neutrophils Absolute Auto 3.1 x10*3/uL (2.0-8.3); Neutrophils Percent Auto 53.2 % (45-73); Platelet Count 230 X10*3/uL (160-400); Red Blood Count 4.49 X10*6/uL (4.20-5.50); Red Cell Distribution Width 13.5 % (11.0-16.0); White Blood Count 5.9 X10*3/uL (4.8-10.8)
[2024-07-01 22:06] LABS: Alanine Aminotransferase 20 U/L (0-31); Albumin Level 4.1 g/dL (3.5-5.0); Alkaline Phosphatase 58 U/L (39-117); Anion Gap 12 (12-20); Aspartate Amino Transferase 25 U/L (5-31); Bilirubin Total 0.4 mg/dL (0.0-1.0); Blood Urea Nitrogen 11 mg/dL (9-16); Calcium 9.7 mg/dL (8.4-10.2); Carbon Dioxide 24 mmol/L (22-29); Chloride 110 mmol/L (96-108); Creatinine Clr Calc Pharmacy 49.7; Estimated Glomerular Filt Rate 60; Glucose Random 100 mg/dL (60-115); Potassium 4.5 mmol/L (3.3-5.1); Sodium 141 mmol/L (135-145); Total Protein 7.1 g/dL (6.5-8.0)
[2024-07-01 23:04] LABS: INTERNATIONAL NORM RATIO 2.6 (0.9-1.1); Prothrombin Time 29.9 SEC (10.9-12.4)
--- NOTE | 2024-07-01 23:13 | ED_ITS ---
HPI - General Adult General Chief complaint: General Medical Stated complaint: head inj Time Seen by Provider: 07/01/24 22:53 Source: patient Mode of arrival: ambulatory Limitations: no limitations History of Present Illness ED Provider: Dr. Renay Roldan HPI narrative: Patient comes to the emergency room stating that she bumped her head earlier today and is on Coumadin. Patient states that she was getting her Fridge, left the freezer door open, and when she stood up, she bumped the top of her head with the freezer door. Patient states that she did not lose consciousness. However, patient takes Coumadin and wants to make sure that she has no brain bleed. Patient denies headache or neck pain. Related Data Home Medications ?Medication ?Instructions ?Recorded ?Confirmed lorazepam 0.5 mg tablet 0.5 mg PO TID PRN Anxiety 10/02/20 06/11/24 metoprolol succinate 25 mg 25 mg PO DAILY 10/02/20 06/11/24 tablet,extended release 24 hr Previous Rx's ?Medication ?Instructions ?Recorded warfarin 5 mg tablet 5 mg PO DAILY #90 tabs 08/03/20 Allergies Allergy/AdvReac Type Severity Reaction Status Date / Time Penicillins [PENICILLINS] AdvReac Unknown Agitation Verified 07/01/24 21:27 ANTIBIOTIC X2 Allergy Unknown PT UNSURE Uncoded 06/11/24 14:41 OF NAMES Review of Systems 2 Review of Systems: Constitutional : No Weight loss, No Fever, No Chills, No Night Sweats, No Fatigue, No Malaise ENT/Mouth : No Hearing loss, No Ear Pain, No Nasal Congestion, No Sinus Pain, No Hoarseness, No sore throat, No Rhinorrhea, No Swallowing Difficulty Eyes: No Eye Pain, No Swelling, No Redness, No Foreign Body, No Discharge, No Vision Changes Cardiovascular : No Chest Pain, No SOB, No Dyspnea on Exertion, No Orthopnea, No Edema, No Palpitations Respiratory : No Cough, No Sputum, No Wheezing, No Smoke Exposure, No Dyspnea Gastrointestinal : No Nausea, No Vomiting, No Diarrhea, No Constipation, No abdominal Pain, No Hematochezia, No Melena Genitourinary : no irregular bleeding, No Dysuria, No Urinary Frequency, No Hematuria, No Urinary Incontinence, No Urgency, No Flank Pain, No Urinary Flow Changes, No Hesitancy Musculoskeletal : No joint pain, No Myalgias, No Joint Swelling Skin : No Skin Lesions, No rash Neuro : No Weakness, No Numbness, No Paresthesias, No Loss of Consciousness, No Dizziness, No Headache Psych : No Anxiety/Panic, No Depression, No SI/HI/AH/VH, No Social Issues, Heme/Lymph: No Bruising, No Bleeding,No Lymphadenopathy Endocrine : No Polyuria, No Polydipsia, No Temperature Intolerance [facility] Past Medical History Medical History Antiphospholipid antibody syndrome (~2006) History of pulmonary embolism (~2006) Current use of anticoagulant therapy (~2006) History of blood transfusion (~2012) History of uterine cancer (~2012) History of melanoma (~2010) Pulmonary nodules History of COVID-19 (~2021) Surgical History (Updated 05/31/24 @ 17:04 by Vincent Mclaughlin MD) History of melanoma excision (~2010) History of lung biopsy (~2014) History of total hysterectomy (~2012) Family History Family History Brother Cancer Lymphoma Father Brain cancer Sister Lung cancer Mother Dementia Social History Social History Household Members: None Housing: Apartment Are you a primary health care consultant to a significant other at home: No Do you presently have visiting nurse or other home services: No Alcohol intake: never Patient Tobacco Use Status: Never used Tobacco Advance Directives: No Advance Directives Information Provided: No Do you have a plan to hurt others: No Plan service: No Current occupational status: unemployed Physical Exam ED Vital Signs: Vital Signs - 24 hr 07/01/24 21:26 Temperature 97.2 F Pulse Rate 71 Respiratory Rate 20 Pulse Oximetry 97 Oxygen Delivery Method Room Air BMI result Body Mass Index 30.1 Const Other: Appearance: Alert. Oriented X3. No acute distress. Eyes: Pupils equal, round and reactive to light. ENT: Pharynx normal. Neck: Normal inspection. Neck supple. No lymph nodes noted. No crepitus CVS: Normal heart rate and rhythm. Pulses normal. Normal S1 and S2 Respiratory: No respiratory distress. Breath sounds normal. No Wheezing. No rales Abdomen: Soft and nontender. No rigidity. No distention. Skin: Skin warm and dry. Normal skin color. Normal skin turgor. Extremities: No lower extremity edema. No Lacerations. No Rash Neuro: Oriented X 3. No motor deficit. No sensory deficit. Moving all extremities. No slurred speech. CN 2 through 12 grossly intact Psych: calm, cooperative, normal affect Medical Decision Making Medical Decision Making [facility] Narrative: My interpretation of labs, normal hematology, INR 2.6 which is therapeutic for the patient, LFTs within normal limits -my interpretation of head CT, no intracranial bleed -patient has a GCS of 15, neurologically intact and asymptomatic Differential Diagnosis Differential Diagnoses: The differential diagnosis associated with the presentation includes (The patient, concussion, intracranial bleed) Admission/Observation Consideration of admission/observation: Escalation of care including admission/observation considered (Given patient's history, observation was considered) Lab Data [facility] Lab Attestation statement: I reviewed the patient's lab results. 07/01/24 21:43 07/01/24 21:44 Labs: Lab Results 07/01/24 07/01/24 07/01/24 Range/Units 21:43 21:44 22:50 WBC 5.9 (4.8-10.8) X10*3/uL RBC 4.49 (4.20-5.50) X10*6/uL Hgb 13.4 (12.0-16.0) g/dl Hct 38.4 (37.0-47.0) % MCV 85.5 (80.0-98.0) fL MCH 29.8 (27.0-33.0) pg MCHC 34.9 (31.0-35.0) g/dl RDW 13.5 (11.0-16.0) % Plt Count 230 (160-400) X10*3/uL MPV 9.9 (9.4-12.3) fL Immature Gran % (Auto) 0.2 (0.0-0.4) % Neut % (Auto) 53.2 (45-73) % Lymph % (Auto) 37.7 (20-40) % Cannon % (Auto) 6.1 (2-11) % Eos % (Auto) 1.9 (0-4) % Baso % (Auto) 0.9 (0-2) % Lymph # (Auto) 2.2 (1.2-4.9) X10*3/uL Cannon # (Auto) 0.4 (0.1-1.2) X10*3/uL Eos # (Auto) 0.1 (0.0-0.4) X10*3/uL Baso # (Auto) 0.1 (0.0-0.2) X10*3/uL Abs Immat Gran (auto) 0.01 (0.00-0.03) X10*3/uL Absolute Neuts (auto) 3.1 (2.0-8.3) x10*3/uL Absolute Nucleated RBC 0.000 (0.0-0.012) X10*3/uL Nucleated RBC % (auto) 0.0 (0.0-0.2) /100WBC PT 29.9 H (10.9-12.4) SEC INR 2.6 H (0.9-1.1) Sodium 141 (135-145) mmol/L Potassium 4.5 (3.3-5.1) mmol/L Chloride 110 H (96-108) mmol/L Carbon Dioxide 24 (22-29) mmol/L Anion Gap 12 (12-20) BUN 11 (9-16) mg/dL Creatinine 0.93 (0.5-1.4) mg/dL Estim Creat Clear Calc 49.7 Estimated GFR 60 Random Glucose 100 (60-115) mg/dL Calcium 9.7 (8.4-10.2) mg/dL Total Bilirubin 0.4 (0.0-1.0) mg/dL AST 25 (5-31) U/L ALT 20 (0-31) U/L Alkaline Phosphatase 58 (39-117) U/L Total Protein 7.1 (6.5-8.0) g/dL Albumin 4.1 (3.5-5.0) g/dL Independent Interpretation I performed an independent interpretation of an: CT Scan Radiology Impression Discussion of test interpretation with radiology: I have reviewed the radiologist's reading. Radiologist Impression: FINDINGS: The lateral, third and fourth ventricles are normally outlined. The cortical sulci and basal cisterns are normally outlined as well. There is no acute territorial defect, hemorrhage or midline shift. The extra-axial spaces are unremarkable. Calvarium/scalp: Intact. Maxillofacial sinuses and mastoids: Clear as visualized. Cervical spine: The alignment is normal. There is minimal diffuse cervical disc degenerative change with minimal loss of disc space and minimal osteophyte formation associated with mild diffuse facet osteoarthritic hypertrophic change with mild neuroforaminal narrowing at C4-5 to the left. The bone mineralization is within normal limits. No fracture is seen. The soft tissues are unremarkable. The visualized upper lung garzon are clear. CT/CT cervical spine wo IV con IMPRESSION: 1. No acute intracranial process seen. 2. There is no acute fracture or malalignment of the cervical spine. There is mild diffuse cervical spondylosis with mild neuroforaminal narrowing at C4-5 to the left. Critical Care Time Critical Care Time Critical Care Time: Yes Total Critical Care Time: 30 Attestation: I have personally provided critical care time. Time includes review of lab data, radiology results, discussion with consultants, and monitoring for potential decompensation. Intervention performed as documented. Discharge Plan Discharge Clinical Impression: Current use of anticoagulant therapy, Blunt head trauma Patient Disposition: Home, Self-Care Instructions: Head Injury (ED), Blood Thinners (ED) Additional Instructions: Please follow-up with your primary care physician tomorrow. If you have any worsening or new symptoms, please return to the emergency room or call 911 Prescriptions: No Action warfarin 5 mg tablet 5 mg PO DAILY Qty: 90 0RF Protocol: Dose Management Condition: Monday (Week One) Dose/Route: 2.5 mg Instruction: 0.5 x 5 mg tablets Condition: Monday Dose/Route: 2.5 mg Instruction: 0.5 x 5 mg tablets Condition: Monday Dose/Route: 5 mg Instruction: 1 x 5 mg tablet Condition: Monday Dose/Route: 2.5 mg Instruction: 0.5 x 5 mg tablets Condition: Dose/Route: 2.5 mg Instruction: 0.5 x 5 mg tablets Condition: Monday Dose/Route: 5 mg Instruction: 1 x 5 mg tablet Condition: Monday Dose/Route: 2.5 mg Instruction: 0.5 x 5 mg tablets Condition: Monday (Week Two) Dose/Route: 2.5 mg Instruction: 0.5 x 5 mg tablets Condition: Monday Dose/Route: 2.5 mg Instruction: 0.5 x 5 mg tablets Condition: Monday Dose/Route: 5 mg Instruction: 1 x 5 mg tablet Condition: Monday Dose/Route: 2.5 mg Instruction: 0.5 x 5 mg tablets Condition: Dose/Route: 2.5 mg Instruction: 0.5 x 5 mg tablets Condition: Monday Dose/Route: 5 mg Instruction: 1 x 5 mg tablet Condition: Monday Dose/Route: 2.5 mg Instruction: 0.5 x 5 mg tablets Protocol Text: Adjustment Start Date: Monday06/11/24 INR Value: 3.0 INR Date: 06/11/24 Recheck Date: 07/02/24 metoprolol succinate 25 mg tablet extended release 24 hr 25 mg PO DAILY lorazepam 0.5 mg tablet 0.5 mg PO TID PRN (Reason: Anxiety) Print Language: [place]an
[2024-07-02 00:52] VITALS: BP 133/72; PULSE 68; RESP 16; TEMP 36.7; O2SAT 97
== END 2024-07-02 00:56 | disposition home or self-care (01) ==
PROVIDERS: Emergency Provider Emergency Medicine; PCP Internal Medicine
DX: S09.90XA Unspecified injury of head, initial encounter (principal); R51.9 Headache, unspecified; Y29.XXXA Contact with blunt object, undetermined intent, initial encounter; M54.2 Cervicalgia; Y93.9 Activity, unspecified; Y92.89 Other specified places as the place of occurrence of the external cause; Y99.8 Other external cause status; Z79.899 Other long term (current) drug therapy; Z79.01 Long term (current) use of anticoagulants
CPT/HCPCS: 36415; 70450; 72125; 80053; 85025; 85610; 99284

== ENCOUNTER 2024-07-09 14:55 | Outpatient (AMB) | payer OTHER, SELFPAY ==
--- NOTE | 2024-07-09 15:10 | MHC.OFFVISCO ---
Intake Intake Visit Reasons: Anticoagulation Allergies Penicillins [PENICILLINS] Adverse Reaction (Unknown, Verified 07/09/24 15:05) Agitation ANTIBIOTIC X2 Allergy (Unknown, Uncoded 07/09/24 15:05) PT UNSURE OF NAMES Medication List - Last Reconciled 07/09/24 by Fidelina Tiwari RN lorazepam 0.5 mg PO TID PRN metoprolol succinate ER 25 mg PO DAILY warfarin 5 mg See Protocol PO DAILY Nursing Note INR: 3.0- in therapeutic range of 2.5-3.5 Medications and supplements reviewed No changes in health, diet, medications, or supplements, Denies any signs and symptoms of bleeding or bruising or clotting. Bleeding, bruising, clotting discussed Nutritional guidance given Dose: 5mg x 2, 2.5mg x 5 F/U INR: 3 weeks Patient verbalizes understanding of instructions given Anti-Coag Initial Assessment Social Hx Patient Tobacco Use Status: Never used Tobacco alcohol intake: never Alcohol intake frequency: does not drink Coding Level of Care Code Est Patient Level 1 Diagnoses Current use of anticoagulant therapy Z79.01 Results AMB INR Fingerstick AMB INR Fingerstick 3.0 Last Edit by Fidelina Tiwari RN on 07/09/24 15:11 interface delay Assessment & Plan Assessment & Plan (1) Current use of anticoagulant therapy: Onset Date: ~2006 Code(s): Z79.01 - [facility] (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
[2024-07-09 15:11] LABS: Prothrombin Time Whole Bld POC 36.2 sec (11.1-13.5)
== END 2024-07-09 15:18 | disposition home or self-care (01) ==
LOC: HO.ACS 14:55
PROVIDERS: PCP Internal Medicine; Visit Provider Internal Medicine
DX: Z79.01 Long term (current) use of anticoagulants (principal)

== ENCOUNTER → 2024-07-09 14:55 | Outpatient (BNVA) | payer OTHER, SELFPAY | PROVIDERS: PCP Internal Medicine; Visit Provider Internal Medicine | DX: I26.99 Other pulmonary embolism without acute cor pulmonale (principal); Z79.01 Long term (current) use of anticoagulants; Z51.81 Encounter for therapeutic drug level monitoring | CPT/HCPCS: 85610; 99211 ==

== ENCOUNTER → 2024-07-23 14:12 | Outpatient (BNVA) | payer OTHER, SELFPAY | PROVIDERS: PCP Internal Medicine; Visit Provider Internal Medicine | DX: I26.99 Other pulmonary embolism without acute cor pulmonale (principal); Z79.01 Long term (current) use of anticoagulants; Z51.81 Encounter for therapeutic drug level monitoring | CPT/HCPCS: 85610; 99211 ==

== ENCOUNTER 2024-08-05 07:07 | Outpatient (REF) | payer OTHER, SELFPAY | END 2024-08-05 07:08 | disposition home or self-care (01) | LOC: HO.CT 07:07 | PROVIDERS: PCP Internal Medicine; Visit Provider Internal Medicine Medical Oncology | DX: R91.8 Other nonspecific abnormal finding of lung field (principal); I26.99 Other pulmonary embolism without acute cor pulmonale; Z51.81 Encounter for therapeutic drug level monitoring; Z79.01 Long term (current) use of anticoagulants | CPT/HCPCS: 71250; 85610; 99211 ==

== ENCOUNTER → 2024-08-05 07:08 | Outpatient (BNV) | payer OTHER, SELFPAY | PROVIDERS: PCP Internal Medicine; Visit Provider Radiology Diagnostic Radiology | DX: R91.8 Other nonspecific abnormal finding of lung field (principal) | CPT/HCPCS: 71250 ==

== ENCOUNTER 2024-08-05 13:21 | Outpatient (AMB) | payer OTHER, SELFPAY ==
[2024-08-05 13:28] LABS: Prothrombin Time Whole Bld POC 38.3 sec (11.1-13.5); ~PT, ~INR - Anti Coag Clinic 3.2 (0.9-1.1)
--- NOTE | 2024-08-05 13:41 | MHC.OFFVISCO ---
Intake Intake Visit Reasons: Anticoagulation Allergies Penicillins [PENICILLINS] Adverse Reaction (Unknown, Verified 08/05/24 13:23) Agitation ANTIBIOTIC X2 Allergy (Unknown, Uncoded 08/05/24 13:23) PT UNSURE OF NAMES Medication List - Last Reconciled 08/05/24 by Zahra Sanchez RN lorazepam 0.5 mg PO TID PRN metoprolol succinate ER 25 mg PO DAILY warfarin 5 mg See Protocol PO DAILY Nursing Note INR: 3.2 in therapeutic range Medications and supplements reviewed Hyper talkative today but pleasant-states she has depression and trying to make it better, she recognizes that she doesnt eat well and may take a supplement shake and will notify [facility] when she starts it Had chest CT today to assess lung nodules and previous infection Denies any signs and symptoms of bleeding or bruising or clotting. Bleeding, bruising, clotting discussed Nutritional guidance given - cont to eat mix of fruits and vegetables Dose: 5mg x 2 days/ 2.5mg x 5 days F/U INR: 3 weeks Patient verbalizes understanding of instructions given Anti-Coag Initial Assessment Social Hx Patient Tobacco Use Status: Never used Tobacco alcohol intake: never Alcohol intake frequency: does not drink Coding Level of Care Code Est Patient Level 1 Diagnoses Current use of anticoagulant therapy Z79.01 Results AMB INR Fingerstick AMB INR Fingerstick 3.2 Last Edit by Zahra Sanchez RN on 08/05/24 13:29 manual entry Assessment & Plan Assessment & Plan (1) Current use of anticoagulant therapy: Onset Date: ~2006 Code(s): Z79.01 - [facility] (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
== END 2024-08-05 13:45 | disposition home or self-care (01) ==
LOC: HO.ACS 13:21
PROVIDERS: PCP Internal Medicine; Visit Provider Internal Medicine
DX: Z79.01 Long term (current) use of anticoagulants (principal)

== ENCOUNTER 2024-08-07 20:08 | Emergency (ER) | payer OTHER, SELFPAY ==
--- NOTE | 2024-08-07 20:15 | ED.GENADULT ---
HPI - General Adult General Chief complaint: Skin/Abscess/Foreign Body Stated complaint: tick bite Time Seen by Provider: 08/07/24 20:34 Source: patient Mode of arrival: ambulatory Limitations: no limitations History of Present Illness ED Provider: raffaele HPI narrative: Patient is a 69-year old female presenting with complaint of tick bite to her back. States she accidentally scratched it off earlier today. Unsure how long it has been there. Called her PCP earlier who called in a prescription for one-time dose of 200mg doxycycline which patient has not taken yet. She denies other complaints. States she wants the area evaluated. complaint: tick bite Associated symptoms: denies other symptoms Related Data Home Medications ?Medication ?Instructions ?Recorded ?Confirmed lorazepam 0.5 mg tablet 0.5 mg PO TID PRN Anxiety 10/02/20 08/05/24 metoprolol succinate 25 mg 25 mg PO DAILY 10/02/20 08/05/24 tablet,extended release 24 hr Previous Rx's ?Medication ?Instructions ?Recorded warfarin 5 mg tablet 5 mg PO DAILY #90 tabs 08/03/20 Allergies Allergy/AdvReac Type Severity Reaction Status Date / Time Penicillins [PENICILLINS] AdvReac Unknown Agitation Verified 08/07/24 20:21 ANTIBIOTIC X2 Allergy Unknown PT UNSURE Uncoded 08/07/24 20:21 OF NAMES Review of Systems Review of Systems: As per HPI Yes all other systems are reviewed and are negative Constitutional: Constitutional: Reports as per HPI PMFSH Past Medical History Medical History Antiphospholipid antibody syndrome (~2006) History of pulmonary embolism (~2006) Current use of anticoagulant therapy (~2006) History of blood transfusion (~2012) History of uterine cancer (~2012) History of melanoma (~2010) Pulmonary nodules History of COVID-19 (~2021) Surgical History (Updated 05/31/24 @ 17:04 by Vincent Mclaughlin MD) History of melanoma excision (~2010) History of lung biopsy (~2014) History of total hysterectomy (~2012) Family History Family History Brother Cancer Lymphoma Father Brain cancer Sister Lung cancer Mother Dementia Social History Social History Household Members: None Housing: Apartment Are you a primary neonatal intensive care unit nurse to a significant other at home: No Do you presently have visiting nurse or other home services: No Alcohol intake: never Patient Tobacco Use Status: Never used Tobacco Advance Directives: No Advance Directives Information Provided: Yes Do you have a plan to hurt others: No Plan service: No Current occupational status: unemployed Physical Exam ED Vital Signs: Vital Signs - 24 hr 08/07/24 20:16 Temperature 97.8 F Pulse Rate 83 Respiratory Rate 16 Blood Pressure 184/73 H Pulse Oximetry 99 Oxygen Delivery Method Room Air BMI result Body Mass Index 30.3 Vital signs have been reviewed and appear to be correct. Blood pressure elevated, however, patient talking and moving while BP being taken. Heart rate normal. Respiratory rate normal. Temperature normal. Oxygen saturation normal. Const General: cooperative, healthy appearing and no acute distress Orientation/consciousness: oriented to person, oriented to place, oriented to time and patient oriented x3 Limitations: no limitations HENMT Head: Yes normocephalic and Yes atraumatic Ears: external ears normal General nose exam: Normal external nose present Face and sinus: Yes face symmetric Mouth: oropharynx normal and moist mucous membranes Throat: Yes uvula midline Eyes Pupils: Equal, round and reactive pupils present Neck Neck: Yes normal visual inspection and Yes supple Resp Effort & Inspection: normal respiratory effort and able to speak in complete sentences Auscultation: clear to auscultation bilaterally Cardio Rate: regular rate Rhythm: regular rhythm Heart sounds: S1 normal heart sound present and S2 normal heart sound present GI Palpation (GI): Soft to palpation and nontender Auscultation: normoactive bowel sounds General: Yes no CVA tenderness Back/Spine/Pelvis Back: no CVA tenderness Skin General skin exam: elasticity normal and turgor normal Full body images: 1. 1cm diameter area of erythema with central puncture wound Neuro General: oriented to person, oriented to place, oriented to time, patient oriented x3, moves all extremities, no focal motor deficits and CN's II-XI intact bilaterally Cranial nerves: Yes Equal, round and reactive pupils present Cognition (Neuro): normal cognition Extrem General: Yes full ROM, Yes no pedal edema and Yes no calf tenderness Psych Mental Status: mental status grossly normal Affect: normal affect Thought process: Normal thought process present Medical Decision Making Medical Decision Making MDM Narrative: Patient is a 69-year old female presenting with complaint of tick bite to her back. On exam patient is awake, A+Ox3, BP elevated, VS otherwise WNL, afebrile, normal neurological exam without focal deficits, physical exam findings as above. Given reported symptoms and physical exam findings, initial differential includes tick bite, other insect bite, cellulitis. Patient brought tick with her in a bag. Appears consistent with dog tick. Has prescribed doxycycline with her, has not taken yet. Discussed with patient that the area appears consistent with a tick bite and does not appear acutely cellulitic. Advised patient to take the doxycycline as soon as she gets home. Follow up with PCP. Return precautions discussed. Patient verbalized understanding of and agreement with plan. Differential Diagnosis Differential Diagnoses: The differential diagnosis associated with the presentation includes As per [facility] External Record Review External record reviewed: Inpatient record, Office record and Outpatient record Prescription Management I considered prescription management with: Antibiotic Discharge Plan Discharge Clinical Impression: Tick bite of back Patient Disposition: Home, Self-Care Instructions: Tick Bite (ED) Additional Instructions: You were evaluated in the emergency department today for a tick bite. You should take the doxycycline as soon as your get home. Take both capsules at once, it is a one-time dose. Follow up with your primary care provider. Return with new or concerning symptoms. Prescriptions: No Action warfarin 5 mg tablet 5 mg PO DAILY Qty: 90 0RF Protocol: Dose Management Condition: Monday (Week One) Dose/Route: 2.5 mg Instruction: 0.5 x 5 mg tablets Condition: Monday Dose/Route: 2.5 mg Instruction: 0.5 x 5 mg tablets Condition: Monday Dose/Route: 5 mg Instruction: 1 x 5 mg tablet Condition: Monday Dose/Route: 2.5 mg Instruction: 0.5 x 5 mg tablets Condition: Dose/Route: 2.5 mg Instruction: 0.5 x 5 mg tablets Condition: Monday Dose/Route: 5 mg Instruction: 1 x 5 mg tablet Condition: Monday Dose/Route: 2.5 mg Instruction: 0.5 x 5 mg tablets Condition: Monday (Week Two) Dose/Route: 2.5 mg Instruction: 0.5 x 5 mg tablets Condition: Monday Dose/Route: 2.5 mg Instruction: 0.5 x 5 mg tablets Condition: Monday Dose/Route: 5 mg Instruction: 1 x 5 mg tablet Condition: Monday Dose/Route: 2.5 mg Instruction: 0.5 x 5 mg tablets Condition: Dose/Route: 2.5 mg Instruction: 0.5 x 5 mg tablets Condition: Monday Dose/Route: 5 mg Instruction: 1 x 5 mg tablet Condition: Monday Dose/Route: 2.5 mg Instruction: 0.5 x 5 mg tablets Protocol Text: Adjustment Start Date: Monday08/05/24 INR Value: 3.2 INR Date: 08/05/24 Additional Instructions: REVIEW FOOD LIST WEEKLY ESPECIALLY DURING THE HOLIDAY, MANY THANKSGIVING FOODS CAN RAISE THE INR -SEE LIST metoprolol succinate 25 mg tablet extended release 24 hr 25 mg PO DAILY lorazepam 0.5 mg tablet 0.5 mg PO TID PRN (Reason: Anxiety) Print Language: Swedish
[2024-08-07 20:16] VITALS: BP 184/73; PULSE 83; RESP 16; TEMP 36.6; O2SAT 99; BMI 30.3
[2024-08-07 20:43] VITALS: BP 184/73; PULSE 83; RESP 16; TEMP 36.6; O2SAT 99
== END 2024-08-07 20:44 | disposition home or self-care (01) ==
PROVIDERS: Emergency Provider Emergency Medicine; PCP Internal Medicine
DX: S30.860A Insect bite (nonvenomous) of lower back and pelvis, initial encounter (principal); W57.XXXA Bitten or stung by nonvenomous insect and other nonvenomous arthropods, initial encounter; Y93.9 Activity, unspecified; Y92.9 Unspecified place or not applicable; Y99.9 Unspecified external cause status
CPT/HCPCS: 99282

== ENCOUNTER 2024-08-20 14:09 | Outpatient (AMB) | payer OTHER, SELFPAY ==
[2024-08-20 14:18] LABS: Prothrombin Time Whole Bld POC 28.1 sec (11.1-13.5); ~PT, ~INR - Anti Coag Clinic 2.3 (0.9-1.1)
--- NOTE | 2024-08-20 14:27 | MHC.OFFVISCO ---
Intake Intake Visit Reasons: Anticoagulation Allergies Penicillins [PENICILLINS] Adverse Reaction (Unknown, Verified 08/20/24 14:11) Agitation ANTIBIOTIC X2 Allergy (Unknown, Uncoded 08/20/24 14:11) PT UNSURE OF NAMES Medication List - Last Reconciled 08/20/24 by Gertrude Cadena RN escitalopram oxalate mg PO lorazepam 0.5 mg PO TID PRN metoprolol succinate ER 25 mg PO DAILY warfarin 5 mg See Protocol PO DAILY Nursing Note INR: 2.3 in therapeutic range of 2.5-3.5 Medications and supplements reviewed No changes in health, diet, medications, or supplements, Denies any signs and symptoms of bleeding or bruising or clotting. Bleeding, bruising, clotting discussed Nutritional guidance given to avoid greens today and have a serving of foods from the list that raises the INR Dose: usual dose of 5mg today then increase tomorrow's dose to 5mg (2.5mg) then resume usual dose of 2.5mg X 5 days and 5mg X 2 days (Tues & Fri) F/U INR: 2 weeks Patient verbalizes understanding of instructions given Anti-Coag Initial Assessment Social Hx Patient Tobacco Use Status: Never used Tobacco alcohol intake: never Alcohol intake frequency: does not drink Coding Level of Care Code Est Patient Level 1 Diagnoses Current use of anticoagulant therapy Z79.01 Results AMB INR Fingerstick AMB INR Fingerstick 2.3 Last Edit by Gertrude Cadena, USMAN on 08/20/24 14:19 interface delay Assessment & Plan Assessment & Plan (1) Current use of anticoagulant therapy: Onset Date: ~2006 Code(s): Z79.01 - group home (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
== END 2024-08-20 14:37 | disposition home or self-care (01) ==
LOC: HO.ACS 14:10
PROVIDERS: PCP Internal Medicine; Visit Provider Internal Medicine
DX: Z79.01 Long term (current) use of anticoagulants (principal)

== ENCOUNTER → 2024-08-20 14:09 | Outpatient (BNVA) | payer OTHER, SELFPAY | PROVIDERS: PCP Internal Medicine; Visit Provider Internal Medicine | DX: I26.99 Other pulmonary embolism without acute cor pulmonale (principal); Z79.01 Long term (current) use of anticoagulants; Z51.81 Encounter for therapeutic drug level monitoring | CPT/HCPCS: 85610; 99211 ==

== ENCOUNTER 2024-09-03 13:51 | Outpatient (AMB) | payer OTHER, SELFPAY ==
[2024-09-03 14:02] LABS: Prothrombin Time Whole Bld POC 29.3 sec (11.1-13.5); ~PT, ~INR - Anti Coag Clinic 2.4 (0.9-1.1)
--- NOTE | 2024-09-03 14:13 | MHC.OFFVISCO ---
Intake Intake Visit Reasons: Anticoagulation Allergies Penicillins [PENICILLINS] Adverse Reaction (Unknown, Verified 09/03/24 13:56) Agitation ANTIBIOTIC X2 Allergy (Unknown, Uncoded 09/03/24 13:56) PT UNSURE OF NAMES Medication List - Last Reconciled 09/03/24 by Gertrude Cadena, RN escitalopram oxalate mg PO lorazepam 0.5 mg PO TID PRN metoprolol succinate ER 25 mg PO DAILY warfarin 5 mg See Protocol PO DAILY Nursing Note INR: 2.4 out of therapeutic range of 2.5-3.5 Medications and supplements reviewed No changes in health, diet, medications, or supplements, Denies any signs and symptoms of bleeding or bruising or clotting. Bleeding, bruising, clotting discussed Nutritional guidance given Dose: increase weekly dose to 5mg X 3 days (instead of 2 days) and 2.5mg X 4 days F/U INR: 10 days Patient verbalizes understanding of instructions given Anti-Coag Initial Assessment Social Hx Patient Tobacco Use Status: Never used Tobacco alcohol intake: never Alcohol intake frequency: does not drink Coding Level of Care Code Est Patient Level 1 Diagnoses Current use of anticoagulant therapy Z79.01 Assessment & Plan Assessment & Plan (1) Current use of anticoagulant therapy: Onset Date: ~2006 Code(s): Z79.01 - snf (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
== END 2024-09-03 14:17 | disposition home or self-care (01) ==
LOC: HO.ACS 13:51
PROVIDERS: PCP Internal Medicine; Visit Provider Internal Medicine
DX: Z79.01 Long term (current) use of anticoagulants (principal)

== ENCOUNTER → 2024-09-03 13:51 | Outpatient (BNVA) | payer OTHER, SELFPAY | PROVIDERS: PCP Internal Medicine; Visit Provider Internal Medicine | DX: I26.99 Other pulmonary embolism without acute cor pulmonale (principal); Z79.01 Long term (current) use of anticoagulants; Z51.81 Encounter for therapeutic drug level monitoring | CPT/HCPCS: 85610; 99211 ==

== ENCOUNTER 2024-09-13 13:27 | Outpatient (AMB) | payer OTHER, SELFPAY ==
[2024-09-13 13:40] LABS: Prothrombin Time Whole Bld POC 36.4 sec (11.1-13.5)
--- NOTE | 2024-09-13 13:44 | MHC.OFFVISCO ---
Intake Intake Visit Reasons: Anticoagulation Allergies Penicillins [PENICILLINS] Adverse Reaction (Unknown, Verified 09/13/24 13:28) Agitation ANTIBIOTIC X2 Allergy (Unknown, Uncoded 09/13/24 13:28) PT UNSURE OF NAMES Medication List - Last Reconciled 09/13/24 by Gertrude Arceo RN escitalopram oxalate mg PO lorazepam 0.5 mg PO TID PRN metoprolol succinate ER 25 mg PO DAILY warfarin 5 mg See Protocol PO DAILY Nursing Note Amb to ACS feeling well Medications and supplements reviewed, has been on new antidepressant x 1 month now (raiser) and sts starting to feel much better depression is lifting No other changes in health, diet, medications, or supplements, Denies any signs and symptoms of bleeding, bruising,or clotting. 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
== END 2024-09-13 14:20 | disposition home or self-care (01) ==
LOC: HO.ACS 13:27
PROVIDERS: PCP Internal Medicine; Visit Provider Internal Medicine
DX: Z79.01 Long term (current) use of anticoagulants (principal)

== ENCOUNTER → 2024-09-13 13:27 | Outpatient (BNVA) | payer OTHER, SELFPAY | PROVIDERS: PCP Internal Medicine; Visit Provider Internal Medicine | DX: I26.99 Other pulmonary embolism without acute cor pulmonale (principal); Z79.01 Long term (current) use of anticoagulants; Z51.81 Encounter for therapeutic drug level monitoring | CPT/HCPCS: 85610; 99211 ==

== ENCOUNTER 2024-09-27 13:38 | Outpatient (AMB) | payer OTHER, SELFPAY ==
[2024-09-27 13:44] LABS: Prothrombin Time Whole Bld POC 25.1 sec (11.1-13.5); ~PT, ~INR - Anti Coag Clinic 2.1 (0.9-1.1)
--- NOTE | 2024-09-27 13:51 | MHC.OFFVISCO ---
Intake Intake Visit Reasons: Anticoagulation Allergies Penicillins [PENICILLINS] Adverse Reaction (Unknown, Verified 09/27/24 13:39) Agitation ANTIBIOTIC X2 Allergy (Unknown, Uncoded 09/27/24 13:39) PT UNSURE OF NAMES Medication List - Last Reconciled 09/27/24 by Gertrude Cadena, RN escitalopram oxalate mg PO lorazepam 0.5 mg PO TID PRN metoprolol succinate ER 25 mg PO DAILY warfarin 5 mg See Protocol PO DAILY Nursing Note INR: 2.1?out of therapeutic range 2.5-3.5 Medications and supplements reviewed Patient status: feels well Medications or supplements: no changes Diet: usual diet for pt Denies any signs and symptoms of bleeding or clotting or unusual bruising Bleeding, bruising, clotting discussed Nutritional guidance given: to avoid greens the next 2 days Dose: increase today's dose to 5mg (2.5mg) then usual dose of 2.5mg X 4 days and 5mg X 3 days F/U INR Date : 1 week?? Patient verbalizing understanding of instructions given. Anti-Coag Initial Assessment Social Hx Patient Tobacco Use Status: Never used Tobacco alcohol intake: never Alcohol intake frequency: does not drink Coding Level of Care Code Est Patient Level 1 Diagnoses Current use of anticoagulant therapy Z79.01 Assessment & Plan Assessment & Plan (1) Current use of anticoagulant therapy: Onset Date: ~2006 Code(s): Z79.01 - correction (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
== END 2024-09-27 13:59 | disposition home or self-care (01) ==
LOC: HO.ACS 13:38
PROVIDERS: PCP Internal Medicine; Visit Provider Internal Medicine
DX: Z79.01 Long term (current) use of anticoagulants (principal)

== ENCOUNTER → 2024-09-27 13:38 | Outpatient (BNVA) | payer OTHER, SELFPAY | PROVIDERS: PCP Internal Medicine; Visit Provider Internal Medicine | DX: I26.99 Other pulmonary embolism without acute cor pulmonale (principal); Z79.01 Long term (current) use of anticoagulants; Z51.81 Encounter for therapeutic drug level monitoring | CPT/HCPCS: 85610; 99211 ==

== ENCOUNTER → 2024-10-04 13:21 | Outpatient (BNVA) | payer OTHER, SELFPAY | PROVIDERS: PCP Internal Medicine; Visit Provider Internal Medicine | DX: I26.99 Other pulmonary embolism without acute cor pulmonale (principal); Z79.01 Long term (current) use of anticoagulants; Z51.81 Encounter for therapeutic drug level monitoring | CPT/HCPCS: 85610; 99211 ==

== ENCOUNTER 2024-10-12 19:15 | Emergency (ER) | payer OTHER, SELFPAY ==
[2024-10-12 19:26] VITALS: BP 153/55; PULSE 82; RESP 18; TEMP 35.9; O2SAT 96; BMI 28.7
--- NOTE | 2024-10-12 19:51 | PC.NURSE ---
pt discharged from triage by rosetta alston
--- NOTE | 2024-10-12 20:15 | ED_ITS ---
HPI - Skin/Abscess/Foreign Bdy General Chief complaint: Skin/Abscess/Foreign Body Stated complaint: left side rash Time Seen by Provider: 10/12/24 19:27 Source: patient Mode of arrival: ambulatory Limitations: no limitations History of Present Illness ED Provider: YASIR GRAHAM PA-C HPI narrative: 69-year-old female with pmhx significant for melanoma, uterine cancer s/p hysterectomy, antiphospholipid syndrome, pulmonary embolism on warfarin presents to the ED today for evaluation of rash to her left abdomen/flank x2 days. States the area is itchy. admits to a burning sensation to the area when she showers. She has been applying [id number] hydrocortisone ointment to the area for itching with minimal improvement. No known tick or insect bites. She has not come into contact with any plants. Denies new soaps, lotions, detergents. No new medications or antibiotics. Admits she did have chickenpox as a child. She did not receive her shingles vaccination. Admits to increased life stressors with her older sister passing away earlier this week. Denies fever, chills, sore throat, CP, abd pain, N/V/D, flank pain, dysuria, fatigue or muscle/joint pain. Related Data Home Medications ?Medication ?Instructions ?Recorded ?Confirmed lorazepam 0.5 mg tablet 0.5 mg PO TID PRN Anxiety 10/02/20 10/04/24 metoprolol succinate 25 mg 25 mg PO DAILY 10/02/20 10/04/24 tablet,extended release 24 hr escitalopram oxalate 5 mg/5 mL mg PO 08/20/24 10/04/24 oral solution Previous Rx's ?Medication ?Instructions ?Recorded warfarin 5 mg tablet 5 mg PO DAILY #90 tabs 08/03/20 diphenhydramine HCl 12.5 mg/5 mL 25 mg (10 mL) PO Q8H PRN itching 10/12/24 oral liquid (Benadryl Allergy) #473 mL valacyclovir 1 gram tablet 1,000 mg PO TID 7 days #21 tabs 10/12/24 (Valtrex) Allergies Allergy/AdvReac Type Severity Reaction Status Date / Time Penicillins [PENICILLINS] AdvReac Unknown Agitation Verified 10/12/24 19:31 ANTIBIOTIC X2 Allergy Unknown PT UNSURE Uncoded 10/04/24 13:36 OF NAMES Review of Systems 2 Review of Systems: Constitutional: No fever, chills, fatigue, night sweats, weight changes ENT/Mouth: No ear pain, hearing loss, nasal congestion, sinus pain, rhinorrhea, sore throat Eyes: No eye pain, swelling, redness, vision changes, discharge Cardio: No chest pain, palpitations, CARCAMO, orthopnea, peripheral edema Pulm: No SOB, cough, sputum, wheezing, dyspnea, hemoptysis GI: No nausea, vomiting, hematemesis, abdominal pain, diarrhea, constipation, hematochezia, melena : No irregular bleeding, dysuria, frequency, urgency, hesitancy, hematuria, flank pain, urinary flow changes, urinary incontinence or retention MSK: No back pain, neck pain, joint pain, myalgias Skin: No lesions, +rash Neuro: No weakness, numbness, paresthesias, LOC, dizziness, headache Psych: No anxiety/panic, depression, SI/HI, AH/VH All other systems reviewed and are negative. [facility] Past Medical History Attestation statement: The following information was validated with the patient. Source: old records reviewed and nursing notes reviewed Medical History Antiphospholipid antibody syndrome (~2006) History of pulmonary embolism (~2006) Current use of anticoagulant therapy (~2006) History of blood transfusion (~2012) History of uterine cancer (~2012) History of melanoma (~2010) Pulmonary nodules History of COVID-19 (~2021) Surgical History History of melanoma excision (~2010) History of lung biopsy (~2014) History of total hysterectomy (~2012) Family History Family History Brother Cancer Lymphoma Father Brain cancer Sister Lung cancer Mother Dementia Social History Social History Household Members: None Housing: Apartment Are you a primary youth career specialist to a significant other at home: No Do you presently have visiting nurse or other home services: No Alcohol intake: never Patient Tobacco Use Status: Never used Tobacco Advance Directives: No Advance Directives Information Provided: Yes Do you have a plan to hurt others: No Plan service: No Current occupational status: unemployed Physical Exam 2 Vital Signs: Vital Signs: Last Vital Signs Temp 96.6 F L 10/12/24 19:26 Pulse 82 10/12/24 19:26 Resp 18 10/12/24 19:26 BP 153/55 H 10/12/24 19:26 Pulse Ox 96 10/12/24 19:26 O2 Del Method Room Air 10/12/24 19:26 BMI result Body Mass Index 28.7 hypertensive, vitals otherwise wnl General: Well appearing, in no acute distress. Skin: +see below Head: Normocephalic, atraumatic. EENT: Hearing is intact b/l. Conjunctiva clear. PERRLA. EOM intact. Moist mucous membranes.? Neck: Supple without LAD Cardiac: Chest wall symmetric. RRR. Lungs: Normal respiratory effort without accessory muscle use. CTA bilaterally Abdomen: Soft, non-tender, non-distended. No rebound tenderness or guarding. Positive BS x4. see below. Back: No midline spinous or paraspinal tenderness. No step off deformity. Ext: Upper and lower extremities atraumatic, without tenderness, deformity, swelling or erythema. Neuro: AOx3. Normal speech. Ambulating with steady gait. Psych: Appropriate mood and affect. Responds appropriately to questions. GI: Abdomen image: 1. grouped vesicles on an erythematous base in dermatomal pattern, primarily left anterior and posterior T6-T9 distribution. rash does not cross midline. multiple crusted lesions. no sloughing. no target lesions. spares palms/soles/webbed spaces/ mucous membranes. Course Course Course Narrative: Physical exam is consistent with herpes zoster, likely triggered by the stress of her sisters recent passing. she did not get the shingles vaccine. after discussion, I will be sending valtrex to the pharmacy for treatment. I will also send benadryl to help with her itching. Patient has remained stable throughout ED visit today. Discussed worrisome signs and symptoms and when to return to the ED. All questions answered at this time. Patient is agreeable with disposition and stable for discharge. Medical Decision Making Medical Decision Making MDM Narrative: 69-year-old female with pmhx significant for melanoma, uterine cancer s/p hysterectomy, antiphospholipid syndrome, pulmonary embolism on warfarin presents to the ED today for evaluation of rash to her left abdomen/flank x2 days. Patient is hypertensive, vitals are otherwise wnl. she is nontoxic appearing and in NAD. on exam, there are grouped vesicles on an erythematous base in dermatomal pattern, primarily left anterior and posterior T6-T9 distribution. rash does not cross midline. multiple crusted lesions. no sloughing. no target lesions. spares palms/soles/webbed spaces/ mucous membranes. Patient's rash is consistent with herpes zoster. Differential diagnosis includes contact/atopic/eczematous dermatitis, psoriasis. History and exam findings not consistent with lyme/tick bourne illness, scabies, HFM,? dangerous etiologies of rash such as SJS/TEN, or secondary dangerous causes such as petechial rashes from thrombocytopenia or rickettsial infections.? Plan at this time is to treat symptomatically, instruct to follow up with PCP or derm PRN. Differential Diagnosis Differential Diagnoses: The differential diagnosis associated with the presentation includes as above. Admission/Observation not indicated. Prescription Management I considered prescription management with: Antiviral (valtrex) and Other (benadryl) Social Determinants Patient?s care significantly limited by Social Determinants of Health including: Other Social Determinant of Health Critical Care Time Critical Care Time Critical Care Time: No Discharge Plan Discharge Clinical Impression: Shingles Patient Disposition: Home, Self-Care Instructions: Shingles (ED) Additional Instructions: You were evaluated in the ED today for rash to your left abdomen/back. Your rash is consistent with shingles.. Treatment for this is with an antiviral, Valtrex, which has been sent to your pharmacy for you to take over the next 7 days. I have also sent benadryl for your itching. You are contageous until all lesions have scabbed over. Please avoid contact with people. Follow up with your PCP as needed. Return with new or worsening symptoms. In the case of an emergency call 911. Prescriptions: New valacyclovir [Valtrex] 1 gram tablet 1,000 mg PO TID 7 Days Qty: 21 0RF diphenhydramine HCl [Benadryl Allergy] 12.5 mg/5 mL liquid 25 mg PO Q8H PRN (Reason: itching) Qty: 473 0RF No Action warfarin 5 mg tablet 5 mg PO DAILY Qty: 90 0RF Protocol: Dose Management Condition: Monday (Week One) Dose/Route: 2.5 mg Instruction: 0.5 x 5 mg tablets Condition: Monday Dose/Route: 2.5 mg Instruction: 0.5 x 5 mg tablets Condition: Monday Dose/Route: 5 mg Instruction: 1 x 5 mg tablet Condition: Monday Dose/Route: 2.5 mg Instruction: 0.5 x 5 mg tablets Condition: Dose/Route: 5 mg Instruction: 1 x 5 mg tablet Condition: Monday Dose/Route: 2.5 mg Instruction: 0.5 x 5 mg tablets Condition: Monday Dose/Route: 5 mg Instruction: 1 x 5 mg tablet Condition: Monday ( Two) Dose/Route: 2.5 mg Instruction: 0.5 x 5 mg tablets Condition: Monday Dose/Route: 2.5 mg Instruction: 0.5 x 5 mg tablets Condition: Monday Dose/Route: 5 mg Instruction: 1 x 5 mg tablet Condition: Monday Dose/Route: 2.5 mg Instruction: 0.5 x 5 mg tablets Condition: Dose/Route: 5 mg Instruction: 1 x 5 mg tablet Condition: Monday Dose/Route: 2.5 mg Instruction: 0.5 x 5 mg tablets Condition: Monday Dose/Route: 5 mg Instruction: 1 x 5 mg tablet Protocol Text: Adjustment Start Date: Monday10/04/24 INR Value: 3.1 INR Date: 10/04/24 Recheck Date: 10/18/24 metoprolol succinate 25 mg tablet extended release 24 hr 25 mg PO DAILY lorazepam 0.5 mg tablet 0.5 mg PO TID PRN (Reason: Anxiety) escitalopram oxalate 5 mg/5 mL solution PO Discharge Date/Time: 10/12/24 19:51 Print Language: Romansh
== END 2024-10-12 19:51 | disposition home or self-care (01) ==
LOC: HO.ED 19:44
PROVIDERS: Emergency Provider Emergency Medicine Emergency Medical Services; PCP Internal Medicine
DX: B02.9 Zoster without complications (principal)
CPT/HCPCS: 99281; 99283

== ENCOUNTER → 2024-10-23 13:28 | Outpatient (BNVA) | payer OTHER, SELFPAY | PROVIDERS: PCP Internal Medicine; Visit Provider Internal Medicine | DX: I26.99 Other pulmonary embolism without acute cor pulmonale (principal); Z79.01 Long term (current) use of anticoagulants; Z51.81 Encounter for therapeutic drug level monitoring | CPT/HCPCS: 85610; 99211 ==

== ENCOUNTER 2024-10-30 14:55 | Outpatient (AMB) | payer OTHER, SELFPAY ==
[2024-10-30 15:14] LABS: Prothrombin Time Whole Bld POC 33.6 sec (11.1-13.5); ~PT, ~INR - Anti Coag Clinic 2.8 (0.9-1.1)
--- NOTE | 2024-10-30 15:28 | MHC.OFFVISCO ---
Intake Intake Visit Reasons: Anticoagulation Allergies Penicillins [PENICILLINS] Adverse Reaction (Unknown, Verified 10/30/24 15:06) Agitation ANTIBIOTIC X2 Allergy (Unknown, Uncoded 10/23/24 13:29) PT UNSURE OF NAMES Medication List - Last Reconciled 10/30/24 by Lanette Lee RN diphenhydramine HCl (Benadryl Allergy) 25 mg (10 mL) PO Q8H PRN escitalopram oxalate mg PO lorazepam 0.5 mg PO TID PRN metoprolol succinate ER 25 mg PO DAILY warfarin 5 mg See Protocol PO DAILY Nursing Note NO CP,SOB,DIET/MED CHANGES,FALLS OR SX OF BLEEDING. CONTINUE PRESENT DOSE AND FOLLOW-UP IN 2 WEEKS. GOOD UNDERSTANDING OF DOSING INSTR. 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
== END 2024-10-30 15:37 | disposition home or self-care (01) ==
LOC: HO.ACS 14:55
PROVIDERS: PCP Internal Medicine; Visit Provider Internal Medicine
DX: Z79.01 Long term (current) use of anticoagulants (principal)

== ENCOUNTER → 2024-10-30 14:55 | Outpatient (BNVA) | payer OTHER, SELFPAY | PROVIDERS: PCP Internal Medicine; Visit Provider Internal Medicine | DX: I26.99 Other pulmonary embolism without acute cor pulmonale (principal); Z79.01 Long term (current) use of anticoagulants; Z51.81 Encounter for therapeutic drug level monitoring | CPT/HCPCS: 85610; 99211 ==

== ENCOUNTER 2024-11-13 14:58 | Outpatient (AMB) | payer OTHER, SELFPAY ==
--- NOTE | 2024-11-13 15:07 | MHC.OFFVISCO ---
Intake Intake Visit Reasons: Anticoagulation Allergies Penicillins [PENICILLINS] Adverse Reaction (Unknown, Verified 11/13/24 15:01) Agitation ANTIBIOTIC X2 Allergy (Unknown, Uncoded 11/13/24 15:01) PT UNSURE OF NAMES Medication List - Last Reconciled 11/13/24 by Fidelina Tiwari RN diphenhydramine HCl (Benadryl Allergy) 25 mg (10 mL) PO Q8H PRN escitalopram oxalate 10 mg PO lorazepam 0.5 mg PO TID PRN metoprolol succinate ER 25 mg PO DAILY warfarin 5 mg See Protocol PO DAILY Nursing Note INR: 2.5- in therapeutic range of 2.5-3.5 Medications and supplements reviewed- no changes No changes in health, diet, medications, or supplements, Denies any signs and symptoms of bleeding or bruising or clotting. Bleeding, bruising, clotting discussed Nutritional guidance given - no greens for 2 days, eat a red today Dose: 5mg x 3, 2.5mg x 4 F/U INR: 2 weeks Patient verbalizes understanding of instructions given Anti-Coag Initial Assessment Social Hx Patient Tobacco Use Status: Never used Tobacco alcohol intake: never Alcohol intake frequency: does not drink Coding Level of Care Code Est Patient Level 1 Diagnoses Current use of anticoagulant therapy Z79.01 Assessment & Plan Assessment & Plan (1) Current use of anticoagulant therapy: Onset Date: ~2006 Code(s): Z79.01 - intermediate (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
[2024-11-13 15:08] LABS: Prothrombin Time Whole Bld POC 29.8 sec (11.1-13.5); ~PT, ~INR - Anti Coag Clinic 2.5 (0.9-1.1)
== END 2024-11-13 15:24 | disposition home or self-care (01) ==
LOC: HO.ACS 14:58
PROVIDERS: PCP Internal Medicine; Visit Provider Internal Medicine
DX: Z79.01 Long term (current) use of anticoagulants (principal)

== ENCOUNTER → 2024-11-13 14:58 | Outpatient (BNVA) | payer OTHER, SELFPAY | PROVIDERS: PCP Internal Medicine; Visit Provider Internal Medicine | DX: I26.99 Other pulmonary embolism without acute cor pulmonale (principal); Z79.01 Long term (current) use of anticoagulants; Z51.81 Encounter for therapeutic drug level monitoring | CPT/HCPCS: 85610; 99211 ==

== ENCOUNTER 2024-11-27 14:49 | Outpatient (AMB) | payer OTHER, SELFPAY ==
[2024-11-27 14:58] LABS: Prothrombin Time Whole Bld POC 35.6 sec (11.1-13.5)
--- NOTE | 2024-11-27 15:15 | MHC.OFFVISCO ---
Intake Intake Visit Reasons: Anticoagulation Allergies Penicillins [PENICILLINS] Adverse Reaction (Unknown, Verified 11/27/24 14:51) Agitation ANTIBIOTIC X2 Allergy (Unknown, Uncoded 11/13/24 15:01) PT UNSURE OF NAMES Medication List - Last Reconciled 11/27/24 by Lanetet Lee RN diphenhydramine HCl (Benadryl Allergy) 25 mg (10 mL) PO Q8H PRN escitalopram oxalate 10 mg PO lorazepam 0.5 mg PO TID PRN metoprolol succinate ER 25 mg PO DAILY warfarin 5 mg See Protocol PO DAILY Nursing Note NO CP,SOB,DIET/MED CHANGES,FALLS OR SX OF BLEEDING. CONTINUE PRESENT DOSE AND FOLLOW-UP IN 2 WEEKS. GOOD UNDERSTANDING OF DOSING INSTR. Anti-Coag Initial Assessment Social Hx Patient Tobacco Use Status: Never used Tobacco alcohol intake: never Alcohol intake frequency: does not drink Coding Level of Care Code Est Patient Level 1 Diagnoses Current use of anticoagulant therapy Z79.01 Assessment & Plan Assessment & Plan (1) Current use of anticoagulant therapy: Onset Date: ~2006 Code(s): Z79.01 - senior living (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
== END 2024-11-27 15:16 | disposition home or self-care (01) ==
LOC: HO.ACS 14:49
PROVIDERS: PCP Internal Medicine; Visit Provider Internal Medicine
DX: Z79.01 Long term (current) use of anticoagulants (principal)

== ENCOUNTER → 2024-11-27 14:49 | Outpatient (BNVA) | payer OTHER, SELFPAY | PROVIDERS: PCP Internal Medicine; Visit Provider Internal Medicine | DX: I26.99 Other pulmonary embolism without acute cor pulmonale (principal); Z79.01 Long term (current) use of anticoagulants; Z51.81 Encounter for therapeutic drug level monitoring | CPT/HCPCS: 85610; 99211 ==

== ENCOUNTER 2024-12-11 14:57 | Outpatient (AMB) | payer OTHER, SELFPAY ==
[2024-12-11 15:22] LABS: Prothrombin Time Whole Bld POC 34.7 sec (11.1-13.5); ~PT, ~INR - Anti Coag Clinic 2.9 (0.9-1.1)
--- NOTE | 2024-12-11 15:25 | MHC.OFFVISCO ---
Intake Intake Visit Reasons: Anticoagulation Allergies Penicillins [PENICILLINS] Adverse Reaction (Unknown, Verified 12/11/24 15:18) Agitation ANTIBIOTIC X2 Allergy (Unknown, Uncoded 11/13/24 15:01) PT UNSURE OF NAMES Medication List - Last Reconciled 12/11/24 by Lanette Lee RN diphenhydramine HCl (Benadryl Allergy) 25 mg (10 mL) PO Q8H PRN escitalopram oxalate 10 mg PO lorazepam 0.5 mg PO TID PRN metoprolol succinate ER 25 mg PO DAILY warfarin 5 mg See Protocol PO DAILY Nursing Note NO CP,SOB,DIET/MED CHANGES,FALLS OR5 SX OF BLEEDING. CONTINUE PRESENT DOSING AND FOLLOW-UP IN 3 WEEKS. GOOD UNDERSTANDINGH OF DOSING INSTR. 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
== END 2024-12-11 15:26 | disposition home or self-care (01) ==
LOC: HO.ACS 14:57
PROVIDERS: PCP Internal Medicine; Visit Provider Internal Medicine Medical Oncology
DX: Z79.01 Long term (current) use of anticoagulants (principal)

== ENCOUNTER → 2024-12-11 14:57 | Outpatient (BNVA) | payer OTHER, SELFPAY | PROVIDERS: PCP Internal Medicine; Visit Provider Internal Medicine Medical Oncology | DX: I26.99 Other pulmonary embolism without acute cor pulmonale (principal); Z79.01 Long term (current) use of anticoagulants; Z51.81 Encounter for therapeutic drug level monitoring | CPT/HCPCS: 85610; 99211 ==

== ENCOUNTER 2024-12-31 14:44 | Outpatient (AMB) | payer OTHER, SELFPAY ==
[2024-12-31 14:51] LABS: Prothrombin Time Whole Bld POC 31.7 sec (11.1-13.5); ~PT, ~INR - Anti Coag Clinic 2.6 (0.9-1.1)
--- NOTE | 2024-12-31 14:58 | MHC.OFFVISCO ---
Intake Intake Visit Reasons: Anticoagulation Allergies Penicillins [PENICILLINS] Adverse Reaction (Unknown, Verified 12/31/24 14:45) Agitation ANTIBIOTIC X2 Allergy (Unknown, Uncoded 12/31/24 14:45) PT UNSURE OF NAMES Medication List - Last Reconciled 12/31/24 by Zahra Sanchez RN diphenhydramine HCl (Benadryl Allergy) 25 mg (10 mL) PO Q8H PRN escitalopram oxalate 10 mg PO lorazepam 0.5 mg PO TID PRN metoprolol succinate ER 25 mg PO DAILY warfarin 5 mg See Protocol PO DAILY Nursing Note INR: 2.6 in therapeutic range Medications and supplements reviewed No changes in health, diet, medications, or supplements, Denies any signs and symptoms of bleeding or bruising or clotting. Bleeding, bruising, clotting discussed Nutritional guidance given Dose: 5MG X 3 Days/ 2.5mg x 4 days F/U INR: 3 weeks Patient verbalizes understanding of instructions given Anti-Coag Initial Assessment Social Hx Patient Tobacco Use Status: Never used Tobacco alcohol intake: never Alcohol intake frequency: does not drink Questionnaires HAS-BLED Does the patient had uncontrolled Hypertension?: No Does the patient have renal disease?: No Does the patient have liver disease?: No Does the patient have a history of stroke?: No Has the patient had major bleeding or predisposition to bleeding?: Yes Does the patient have labile INRs?: No Is the patient over 65 years of age?: Yes Is the patient on medications that gives them a predisposition to bleeding?: Yes Does the patient use alcohol?: No HAS-BLED Score: 3 CHADSVASC Age: 66-74 Gender: Female Does the patient have a history of CHF?: No Does the patient have a history of Hypertension?: No Does the patient have a history of Stroke/TIA/Thromboembolism?: Yes (PE) Does the patient have a history of Vascular Disease (prior NV, PAD or aortic plaque)?: No Does the patient have a history of Diabetes?: No CHADS VACS Score: 4 Jewel Prediction Score Rsk VTE Active Cancer: No Previous VTE, excluding superficial vein thrombosis: Yes Reduced mobility: No Already known Thrombophilic Condition: Yes With-in last month Trauma and/or Surgery: No Elderly 70 year or older: No Heart and/or Respiratory Failure: No Acute Myocardial infarction and/or Ischemic Stroke: No Acute Infection and/or Rheumatologic Disorder: No Obesity (BMI 30 or greater): Yes Ongoing Hormonal Treatment: No Score: 7 Jewel Score less than 4; Low Risk of VTE Jewel Score 4 or greater; High Risk of VTE Coding Level of Care Code Est Patient Level 1 Diagnoses Current use of anticoagulant therapy Z79.01 Results AMB INR Fingerstick AMB INR Fingerstick 2.6 Last Edit by Zahra Sanchez RN on 12/31/24 14:55 MANUAL ENTRY Assessment & Plan Assessment & Plan (1) Current use of anticoagulant therapy: Onset Date: Code(s): Z79.01 - retirement (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
== END 2024-12-31 15:03 | disposition home or self-care (01) ==
LOC: HO.ACS 14:44
PROVIDERS: PCP Internal Medicine; Visit Provider Internal Medicine Medical Oncology
DX: Z79.01 Long term (current) use of anticoagulants (principal)

== ENCOUNTER → 2024-12-31 14:44 | Outpatient (BNVA) | payer OTHER, SELFPAY | PROVIDERS: PCP Internal Medicine; Visit Provider Internal Medicine Medical Oncology | DX: I26.99 Other pulmonary embolism without acute cor pulmonale (principal); Z51.81 Encounter for therapeutic drug level monitoring; Z79.01 Long term (current) use of anticoagulants | CPT/HCPCS: 85610; 99211 ==

== ENCOUNTER 2025-01-15 02:26 | Emergency (ER) | payer OTHER, SELFPAY ==
--- NOTE | ~2025-01-15 | CT_ITS ---
CLINICAL HISTORY: Left-sided abdominal rule out diverticulitis, --- Additional Notes or Special Instr uctions: Kidney stone CT abdomen and pelvis without contrast Comparison: CT/SD/SR - CT CHEST WO IV CON - 08/05/24 07:[address]/SD/SR - CT CHEST WO IV CON - 07/19/23 15:28 EDT Findings: No consolidation or effusion. Atrophic left hepatic lobe, partially calcified. There is an ill-defined hypodense lesion within the liver (likely segment 5) seen on image 22 of series 3 measuring 16 mm. Additional subcapsular lesion segment 7 measuring 14 mm. These lesions are stable compared to a CT of the chest in July of 2024. A 3rd subcapsular segment 6 lesion measuring 12 mm is seen on image 25, this area excluded by collimation on the prior exam. Questionable additional lesion within the central aspect of segment 6 measuring 10 mm on image 25. Hypodense lesion arises from the lower pole of the right kidney measuring 15 mm, incompletely characterized. No radiopaque stones or hydronephrosis. Gallbladder and biliary tree, pancreas, spleen and adrenal glands are unremarkable. No bowel obstruction, pneumoperitoneum, or pneumatosis. No colonic inflammation identified. No significant diverticular disease. Hysterectomy. Bladder is predominantly decompressed. No fluid collections or adenopathy. Nonaneurysmal aorta. The bones are intact. IMPRESSION: Numerous hepatic masses, nonspecific on this noncontrast exam. 2 of them are stable compared to a prior chest CT in july of 2024. Recommend MRI abdomen with and without contrast to fully characterize these lesions. No bowel obstruction, biliary obstruction or obstructive uropathy. Indeterminate hypodense lesion arises from the lower pole of the right kidney. This can also be further characterized by MRI. This document has been electronically signed by: Tita Millan MD on 01/15/2025 06:47:19
[2025-01-15 02:28] VITALS: BP 166/78; PULSE 88; RESP 20; TEMP 36.8; O2SAT 98; BMI 27.3
[2025-01-15 02:40] LABS: MANUAL DIFF FLAG NO
[2025-01-15 02:42] LABS: Basophils Absolute Auto 0.1 X10*3/uL (0.0-0.2); Basophils Percent Auto 0.7 % (0-2); Eosinophils Absolute Auto 0.1 X10*3/uL (0.0-0.4); Eosinophils Percent Auto 1.8 % (0-4); Hematocrit 39.2 % (37.0-47.0); Hemoglobin 13.5 g/dl (12.0-16.0); Imm Gran Abs Auto 0.02 X10*3/uL (0.00-0.03); Imm Gran Pct Auto 0.3 % (0.0-0.4); Lymphocytes Absolute Auto 2.5 X10*3/uL (1.2-4.9); Lymphocytes Percent Auto 34.5 % (20-40); Mean Corpuscular HGB Conc 34.4 g/dl (31.0-35.0); Mean Corpuscular Hemoglobin 29.7 pg (27.0-33.0); Mean Corpuscular Volume 86.2 fL (80.0-98.0); Mean Platelet Volume 10.8 fL (9.4-12.3); Monocytes Absolute Auto 0.4 X10*3/uL (0.1-1.2); Monocytes Percent Auto 5.7 % (2-11); Neutrophils Absolute Auto 4.1 x10*3/uL (2.0-8.3); Platelet Count 213 X10*3/uL (160-400); Red Blood Count 4.55 X10*6/uL (4.20-5.50); Red Cell Distribution Width 13.3 % (11.0-16.0); White Blood Count 7.2 X10*3/uL (4.8-10.8)
[2025-01-15 02:48] VITALS: BP 146/62; PULSE 89; RESP 18; TEMP 36.7; O2SAT 96
[2025-01-15 03:05] LABS: Alanine Aminotransferase 18 U/L (0-31); Albumin Level 4.2 g/dL (3.5-5.0); Anion Gap 13 (12-20); Aspartate Amino Transferase 29 U/L (5-31); Bilirubin Total 0.4 mg/dL (0.0-1.0); Blood Urea Nitrogen 15 mg/dL (9-16); Calcium 9.9 mg/dL (8.4-10.2); Carbon Dioxide 24 mmol/L (22-29); Chloride 110 mmol/L (96-108); Creatinine Clr Calc Pharmacy 44.5; Estimated Glomerular Filt Rate 56; Glucose Random 123 mg/dL (60-115); Potassium 4.2 mmol/L (3.3-5.1); Sodium 143 mmol/L (135-145); Total Protein 7.3 g/dL (6.5-8.0)
[2025-01-15 03:12] LABS: Alkaline Phosphatase 54 U/L (39-117)
--- NOTE | 2025-01-15 05:00 | ED_ITS ---
HPI - Abdominal Pain General Chief Complaint: Back Pain/Injury Stated Complaint: left side sided Time Seen by Provider: 01/15/25 04:46 Source: patient Mode of arrival: ambulatory Limitations: no limitations History of Present Illness ED Provider: Dr. Km Gomez HPI narrative: 69-year-old female with a history of antiphospholipid syndrome, pulmonary embolism, anxiety, uterine cancer status post radical hysterectomy, melanoma, shingles several months prior to evaluation who presents emergency department for evaluation of sudden onset of left-sided abdominal and flank pain. She states the pain started suddenly at around 19:00 hours. She states the pain has been a constant, aching sensation which is greater than 10/10. Patient states she did have some ice cream after dinner and this did cause her to have loose diarrheal stools-this is something that is happened before when she eats ice cream. She denied fever, chills, chest pain, shortness of breath, frequency, urgency, dysuria Related Data Home Medications ?Medication ?Instructions ?Recorded ?Confirmed lorazepam 0.5 mg tablet 0.5 mg PO TID PRN Anxiety 10/02/20 12/31/24 metoprolol succinate 25 mg 25 mg PO DAILY 10/02/20 12/31/24 tablet,extended release 24 hr escitalopram oxalate 5 mg/5 mL 10 mg PO 11/13/24 12/31/24 oral solution Previous Rx's ?Medication ?Instructions ?Recorded warfarin 5 mg tablet 5 mg PO DAILY #90 tabs 08/03/20 diphenhydramine HCl 12.5 mg/5 mL 25 mg (10 mL) PO Q8H PRN itching 10/12/24 oral liquid (Benadryl Allergy) #473 mL morphine 10 mg/5 mL oral solution 10 mg (5 mL) PO Q6H PRN pain 5 01/15/25 days #100 mL ondansetron 4 mg disintegrating 4 mg PO Q6-8H PRN nausea and 01/15/25 tablet vomiting #14 tabs Allergies Allergy/AdvReac Type Severity Reaction Status Date / Time Penicillins [PENICILLINS] AdvReac Unknown Agitation Verified 01/15/25 02:30 ANTIBIOTIC X2 Allergy Unknown PT UNSURE Uncoded 01/15/25 02:30 OF NAMES Review of Systems Review of Systems Yes all other systems are reviewed and are negative PMFSH Past Medical History Medical History Antiphospholipid antibody syndrome (~2006) History of pulmonary embolism (~2006) Current use of anticoagulant therapy (~2006) History of blood transfusion (~2012) History of uterine cancer (~2012) History of melanoma (~2010) Pulmonary nodules History of COVID-19 (~2021) Surgical History History of melanoma excision (~2010) History of lung biopsy (~2014) History of total hysterectomy (~2012) Family History Family History Brother Cancer Lymphoma Father Brain cancer Sister Lung cancer Mother Dementia Social History Social History Household Members: None Housing: Apartment Are you a primary director of career services to a significant other at home: No Do you presently have visiting nurse or other home services: No Alcohol intake: never Patient Tobacco Use Status: Never used Tobacco Smoked in Last 30 Days: No Use of substances other than those prescribed or required for medical reasons: No Advance Directives: No Advance Directives Information Provided: Yes service: No Current occupational status: unemployed Physical Exam ED Vital Signs: Vital Signs - 24 hr 01/15/25 02:28 01/15/25 02:48 01/15/25 07:11 Temperature 98.3 F 98.1 F 97.7 F Pulse Rate 88 89 80 Respiratory Rate 20 18 16 Blood Pressure 166/78 H 146/62 H 160/76 H Pulse Oximetry 98 96 95 Oxygen Delivery Method Room Air Room Air Room Air BMI result Body Mass Index 27.3 Vital signs revealed an elevated blood pressure of 166/78 otherwise unremarkable Exam: General: Awake, alert in no distress Head: Normocephalic, atraumatic EENT: PERRL, Lids normal, sclera normal, conjunctiva normal, nose normal , ears normal, throat without erythema or exudates Neck: Supple, no adenopathy Lung: breath sounds symmetric, no wheezing, rales or rhonchi Chest: symmetric movement, nontender Heart: regular rate and rhythm, normal S1, S2 no murmurs or rubs Abdomen: soft, non-tender, nondistended, normal bowel sounds Back: no vertebral tenderness, no CVAT Extremities: no deformities, moves all extremities symmetrically Neuro: Awake, alert, oriented, normal speech, cranial nerves intact, moves all extremities symmetrically Psych: Pleasant, cooperative Skin: The patient has a large irregular dark mole on her right scapular area-she states she gets this looked at yearly by a coordinator 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 Patient has no other rash noted in the area of her pain Medical Decision Making Medical Decision Making MDM Narrative: 69-year-old female with a history of antiphospholipid syndrome, pulmonary embolism, anxiety, uterine cancer status post radical hysterectomy, melanoma, shingles several months prior to evaluation who presents emergency department for evaluation of sudden onset of , constant, severe left-sided abdominal and flank pain associated with nausea and diarrhea. Symptoms started at 19:00 hours and has been constant since onset but waxes and wanes in intensity. Vital signs revealed an elevated blood pressure. Physical examination revealed no significant abdominal tenderness. Differential diagnosis: ?Includes but is not limited to gastritis, pancreatitis, diverticulitis, ureteral stone, renal colic urinary tract infection, anemia, electrolyte abnormalities Course: 05:06 My independent interpretation patient's laboratory evaluation is as follows: CBC was normal. CMP revealed an elevated chloride of 110, elevated glucose of 126. LFTs were normal. Lipase was normal. I did order a CT scan of the abdomen pelvis with IV contrast to further evaluate the patient's pain. Patient was ordered to get morphine 4 mg IV, Zofran 4 mg IV and normal saline IV x1 L 08:48 The patient's pain completely resolved after the above treatment. Patient has no significant abdominal tenderness on repeat exam. The patient's CT scan of the abdomen pelvis did not reveal a clear cause for her left-sided abdominal and flank pain. The patient had at least 4 lesions noted in her liver 2 of which were old but to are new, these lesions which are less than 2 cm. Patient also has a lesion in the right kidney. Radiologist is recommending MRI with and without contrast. The patient was followed by Dr. Mclaughlin for her pulmonary emboli and previous uterine cancer. Patient was advised to call Dr. Mclaughlin's office to arrange a follow-up appointment to further evaluate her liver and renal lesions. Patient was discharged home with liquid morphine and Zofran. She was given printed and verbal instructions at the time of discharge. Admission/Observation Consideration of admission/observation: Escalation of care including admission/observation considered (Yes) Lab Data MDM Lab Attestation statement: I reviewed the patient's lab results. 01/15/25 02:36 01/15/25 02:36 Labs: Lab Results 01/15/25 Range/Units 02:36 WBC 7.2 (4.8-10.8) X10*3/uL RBC 4.55 (4.20-5.50) X10*6/uL Hgb 13.5 (12.0-16.0) g/dl Hct 39.2 (37.0-47.0) % MCV 86.2 (80.0-98.0) fL MCH 29.7 (27.0-33.0) pg MCHC 34.4 (31.0-35.0) g/dl RDW 13.3 (11.0-16.0) % Plt Count 213 (160-400) X10*3/uL MPV 10.8 (9.4-12.3) fL Immature Gran % (Auto) 0.3 (0.0-0.4) % Neut % (Auto) 57.0 (45-73) % Lymph % (Auto) 34.5 (20-40) % [place] % (Auto) 5.7 (2-11) % Eos % (Auto) 1.8 (0-4) % Baso % (Auto) 0.7 (0-2) % Lymph # (Auto) 2.5 (1.2-4.9) X10*3/uL [place] # (Auto) 0.4 (0.1-1.2) X10*3/uL Eos # (Auto) 0.1 (0.0-0.4) X10*3/uL Baso # (Auto) 0.1 (0.0-0.2) X10*3/uL Abs Immat Gran (auto) 0.02 (0.00-0.03) X10*3/uL Absolute Neuts (auto) 4.1 (2.0-8.3) x10*3/uL Absolute Nucleated RBC 0.000 (0.0-0.012) X10*3/uL Nucleated RBC % (auto) 0.0 (0.0-0.2) /100WBC Sodium 143 (135-145) mmol/L Potassium 4.2 (3.3-5.1) mmol/L Chloride 110 H (96-108) mmol/L Carbon Dioxide 24 (22-29) mmol/L Anion Gap 13 (12-20) BUN 15 (9-16) mg/dL Creatinine 0.99 (0.5-1.4) mg/dL Estim Creat Clear Calc 44.5 Estimated GFR 56 Random Glucose 123 H (60-115) mg/dL Calcium 9.9 (8.4-10.2) mg/dL Total Bilirubin 0.4 (0.0-1.0) mg/dL AST 29 (5-31) U/L ALT 18 (0-31) U/L Alkaline Phosphatase 54 (39-117) U/L Total Protein 7.3 (6.5-8.0) g/dL Albumin 4.2 (3.5-5.0) g/dL Lipase 42 (8-78) U/L Radiology Impression Discussion of test interpretation with radiology: I have reviewed the radiologist's reading. Radiologist Impression: CT abdomen and pelvis without contrast Comparison: CT/[place] - CT CHEST WO IV CON - 08/05/24 07:[address] - CT CHEST WO IV CON - 07/19/23 15:28 EDT Findings: No consolidation or effusion. Atrophic left hepatic lobe, partially calcified. There is an ill-defined hypodense lesion within the liver (likely segment 5) seen on image 22 of series 3 measuring 16 mm. Additional subcapsular lesion segment 7 measuring 14 mm. These lesions are stable compared to a CT of the chest in July of 2024. A 3rd subcapsular segment 6 lesion measuring 12 mm is seen on image 25, this area excluded by collimation on the prior exam. Questionable additional lesion within the central aspect of segment 6 measuring 10 mm on image 25. Hypodense lesion arises from the lower pole of the right kidney measuring 15 mm, incompletely characterized. No radiopaque stones or hydronephrosis. Gallbladder and biliary tree, pancreas, spleen and adrenal glands are unremarkable. No bowel obstruction, pneumoperitoneum, or pneumatosis. No colonic inflammation identified. No significant diverticular disease. Hysterectomy. Bladder is predominantly decompressed. No fluid collections or adenopathy. Nonaneurysmal aorta. The bones are intact. IMPRESSION: Numerous hepatic masses, nonspecific on this noncontrast exam. 2 of them are stable compared to a prior chest CT in july of 2024. Recommend MRI abdomen with and without contrast to fully characterize these lesions. No bowel obstruction, biliary obstruction or obstructive uropathy. Indeterminate hypodense lesion arises from the lower pole of the right kidney. This can also be further characterized by MRI. This document has been electronically signed by: Tita Millan MD on 01/15/2025 06:47:19 Prescription Management I considered prescription management with: Pain Medication (Liquid morphine since the patient can not swallow pills) and Other (Antiemetic: Zofran ODT) Chronic Conditions Patient?s care impacted by: Other (Antiphospholipid syndrome with pulmonary emboli) Medications Administered Discontinued Medications Generic Name Dose Route Start Last Admin Trade Name Freq PRN Reason Stop Dose Admin Sodium Chloride 1,000 mls @ 999 mls/hr 01/15/25 04:58 01/15/25 08:11 Ns IV 01/15/25 05:58 Infused .Q1H1M STA Infusion Morphine Sulfate 4 mg 01/15/25 04:58 01/15/25 05:07 Morphine Sulfate 4 Mg/Ml Cartridge IVPUSH 01/15/25 04:59 4 mg ONCE STA Administration Protocol Ondansetron HCl 4 mg 01/15/25 04:58 01/15/25 05:07 Ondansetron Hcl 4 Mg/2 Ml Vial IVPUSH 01/15/25 04:59 4 mg ONCE ONE Administration Discharge Plan Discharge Clinical Impression: Liver lesion, Kidney lesion, [place], right Abdominal pain Qualifiers: Abdominal location: left upper quadrant Qualified Code(s): R10.12 - Left upper quadrant pain Patient Disposition: Home, Self-Care Instructions: Abdominal Pain (ED) Additional Instructions: Your blood work was unremarkable. The CAT scan of your abdomen pelvis with IV contrast did not reveal a clear cause for your left-sided pain. The radiologist did note numerous hepatic masses/lesions of your liver and the radiologist recommended that you get an MRI with and without IV contrast as an outpatient. I want you to call Dr. Mclaughlin's office today and schedule a follow- up visit with Dr. Mclaughlin so that she can further investigate these lesions/masses of your liver. You also have a lesion of the right kidney that can be better visualized with the MRI. Take Zofran ODT 4 mg pills, 1 pill dissolved in your mouth every 8 hours as needed for nausea and vomiting. Take morphine 10 mg per 5 mL, 5 mL every 6 hours as needed for pain. Morphine is a narcotic medication and can be addicting. ?If you are concerned about addiction, do not get the prescription filled or you can ask the pharmacist for less pills than prescribed. ?This medication will make you sleepy, do not drive or work while taking this medication. Continue taking your other medications as prescribed by your providers. Follow-up with your doctor in 2 days. Please return to the emergency department if your symptoms get worse or if you develop any symptoms that are concerning to you. CT abdomen and pelvis without contrast Comparison: [place] - CT CHEST WO IV CON - 08/05/24 07:[address] - CT CHEST WO IV CON - 07/19/23 15:28 EDT IMPRESSION: Numerous hepatic masses, nonspecific on this noncontrast exam. 2 of them are stable compared to a prior chest CT in july of 2024. Recommend MRI abdomen with and without contrast to fully characterize these lesions. No bowel obstruction, biliary obstruction or obstructive uropathy. Indeterminate hypodense lesion arises from the lower pole of the right kidney. This can also be further characterized by MRI. This document has been electronically signed by: Tita Millan MD on 01/15/2025 06:47:19 Prescriptions: New morphine 10 mg/5 mL solution 10 mg PO Q6H PRN (Reason: pain) 5 Days Qty: 100 0RF Rx Instructions: Partial Fill upon patient request. ondansetron 4 mg tablet,disintegrating 4 mg PO Q6-8H PRN (Reason: nausea and vomiting) Qty: 14 0RF No Action diphenhydramine HCl [Benadryl Allergy] 12.5 mg/5 mL liquid 25 mg PO Q8H PRN (Reason: itching) Qty: 473 0RF warfarin 5 mg tablet 5 mg PO DAILY Qty: 90 0RF Protocol: Dose Management Condition: Monday (Week One) Dose/Route: 2.5 mg Instruction: 0.5 x 5 mg tablets Condition: Monday Dose/Route: 2.5 mg Instruction: 0.5 x 5 mg tablets Condition: Monday Dose/Route: 5 mg Instruction: 1 x 5 mg tablet Condition: Monday Dose/Route: 2.5 mg Instruction: 0.5 x 5 mg tablets Condition: Dose/Route: 5 mg Instruction: 1 x 5 mg tablet Condition: Monday Dose/Route: 2.5 mg Instruction: 0.5 x 5 mg tablets Condition: Monday Dose/Route: 5 mg Instruction: 1 x 5 mg tablet Condition: Monday (Week Two) Dose/Route: 2.5 mg Instruction: 0.5 x 5 mg tablets Condition: Monday Dose/Route: 2.5 mg Instruction: 0.5 x 5 mg tablets Condition: Monday Dose/Route: 5 mg Instruction: 1 x 5 mg tablet Condition: Monday Dose/Route: 2.5 mg Instruction: 0.5 x 5 mg tablets Condition: Dose/Route: 5 mg Instruction: 1 x 5 mg tablet Condition: Monday Dose/Route: 2.5 mg Instruction: 0.5 x 5 mg tablets Condition: Monday Dose/Route: 5 mg Instruction: 1 x 5 mg tablet Protocol Text: Adjustment Start Date: Monday12/31/24 INR Value: 2.6 INR Date: 12/31/24 Recheck Date: 01/21/25 Additional Instructions: REVIEW FOOD LIST WEEKLY, TRY TO EAT A MIX OF FRUITS AND VEGETABLES metoprolol succinate 25 mg tablet extended release 24 hr 25 mg PO DAILY lorazepam 0.5 mg tablet 0.5 mg PO TID PRN (Reason: Anxiety) escitalopram oxalate 5 mg/5 mL solution 10 mg PO Print Language: Arabic
[2025-01-15 05:07] LABS: Lipase 42 U/L (8-78)
[2025-01-15] MEDS: Morphine Sulfate 4 MG/ML CARTRIDGE IVPUSH (05:07)
[2025-01-15] MEDS: 0.9 % Sodium Chloride 1,000 ML 999 ML IV (05:07)
[2025-01-15] MEDS: ondansetron HCL 4 MG/2 ML VIAL IVPUSH (05:07)
--- NOTE | 2025-01-15 05:14 | PC.NURSE ---
Pt medicated for pain and nausea per NOV. Pt ambulated with a steady gait and standby assistance over to CT scan and back to room.
[2025-01-15 07:11] VITALS: BP 160/76; PULSE 80; RESP 16; TEMP 36.5; O2SAT 95
[2025-01-15 09:15] VITALS: BP 160/76; PULSE 80; RESP 16; TEMP 36.5; O2SAT 95
== END 2025-01-15 09:16 | disposition home or self-care (01) ==
PROVIDERS: Emergency Provider Emergency Medicine Emergency Medical Services; PCP Internal Medicine
DX: K76.9 Liver disease, unspecified (principal); N28.89 Other specified disorders of kidney and ureter; R10.12 Left upper quadrant pain; D68.61 Antiphospholipid syndrome; Z86.711 Personal history of pulmonary embolism; Z85.42 Personal history of malignant neoplasm of other parts of uterus; Z79.01 Long term (current) use of anticoagulants
CPT/HCPCS: 36415; 74176; 80053; 83690; 85025; 85610; 96361; 96374; 96375; 99211; 99284; 99285; J2270; J2405

== ENCOUNTER → 2025-01-15 04:59 | Outpatient (BNV) | payer OTHER, SELFPAY | PROVIDERS: Emergency Provider Emergency Medicine Emergency Medical Services; PCP Internal Medicine; Visit Provider Radiology Diagnostic Radiology | DX: R93.5 Abnormal findings on diagnostic imaging of other abdominal regions, including retroperitoneum (principal) | CPT/HCPCS: 74176 ==

== ENCOUNTER 2025-01-15 15:47 | Outpatient (AMB) | payer OTHER, SELFPAY ==
[2025-01-15 15:52] LABS: Prothrombin Time Whole Bld POC 37.2 sec (11.1-13.5); ~PT, ~INR - Anti Coag Clinic 3.1 (0.9-1.1)
--- NOTE | 2025-01-15 15:54 | MHC.OFFVISCO ---
Intake Intake Visit Reasons: Anticoagulation Allergies Penicillins [PENICILLINS] Adverse Reaction (Unknown, Verified 01/15/25 15:47) Agitation ANTIBIOTIC X2 Allergy (Unknown, Uncoded 01/15/25 15:47) PT UNSURE OF NAMES Medication List - Last Reconciled 01/15/25 by Fidelina Tiwari RN diphenhydramine HCl (Benadryl Allergy) 25 mg (10 mL) PO Q8H PRN escitalopram oxalate 10 mg PO lorazepam 0.5 mg PO TID PRN metoprolol succinate ER 25 mg PO DAILY morphine 10 mg (5 mL) PO Q6H PRN ondansetron 4 mg PO Q6-8H PRN warfarin 5 mg See Protocol PO DAILY Nursing Note INR: 3.1- in therapeutic range of 2.5-3.5 Medications and supplements reviewed No changes in health, diet, medications, or supplements, Denies any signs and symptoms of bleeding or bruising or clotting. Bleeding, bruising, clotting discussed Nutritional guidance given Dose: 5mg x 2. 2.5mg x 4 F/U INR: 1 week Patient verbalizes understanding of instructions given pt [place] [facility] [place]. she states lesion on liver and will need an MRI new meds- morphine, ondansetron- no interaction with warfarin per micromedex Anti-Coag Initial Assessment Social Hx Patient Tobacco Use Status: Never used Tobacco alcohol intake: never Alcohol intake frequency: does not drink Coding Level of Care Code Est Patient Level 1 Diagnoses Current use of anticoagulant therapy Z79.01 Results AMB INR Fingerstick AMB INR Fingerstick 3.1 Last Edit by Fidelina Tiwari RN on 01/15/25 15:51 interface delay Assessment & Plan Assessment & Plan (1) Current use of anticoagulant therapy: Onset Date: ~2006 Code(s): Z79.01 - [facility] (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
== END 2025-01-15 15:57 | disposition home or self-care (01) ==
LOC: HO.ACS 15:47
PROVIDERS: PCP Internal Medicine; Visit Provider Internal Medicine Medical Oncology
DX: Z79.01 Long term (current) use of anticoagulants (principal)

== ENCOUNTER 2025-01-28 14:11 | Outpatient (AMB) | payer OTHER, SELFPAY ==
[2025-01-28 14:35] LABS: ~PT, ~INR - Anti Coag Clinic 3.2 (0.9-1.1)
--- NOTE | 2025-01-28 16:30 | MHC.OFFVISCO ---
Intake Intake Visit Reasons: Anticoagulation Allergies Penicillins [PENICILLINS] Adverse Reaction (Unknown, Verified 01/28/25 14:11) Agitation ANTIBIOTIC X2 Allergy (Unknown, Uncoded 01/28/25 14:11) PT UNSURE OF NAMES Medication List - Last Reconciled 01/28/25 by Zahra Sanchez RN diphenhydramine HCl (Benadryl Allergy) 25 mg (10 mL) PO Q8H PRN escitalopram oxalate 10 mg PO lorazepam 0.5 mg PO TID PRN metoprolol succinate ER 25 mg PO DAILY morphine 10 mg (5 mL) PO Q6H PRN ondansetron 4 mg PO Q6-8H PRN warfarin 5 mg See Protocol PO DAILY Nursing Note INR: 3.2 in therapeutic range Medications and supplements reviewed Previous visit pt stated that she had sever upper GI/RIB vs pulmonary pain radiating to back - was seen in ER and treated- has since starting to feel better lest pain - to have MRI in near future, Able to converse through out appt with exhibiting s/sx of discomfort but verbalizes it is still something sore present Denies any signs and symptoms of bleeding or bruising or clotting. Bleeding, bruising, clotting discussed Nutritional guidance given Dose: 5mg x 3 days/ 2.5mg x 4 days F/U INR: 2 weeks Patient verbalizes understanding of instructions given Anti-Coag Initial Assessment Social Hx Patient Tobacco Use Status: Never used Tobacco alcohol intake: never Alcohol intake frequency: does not drink Coding Level of Care Code Est Patient Level 1 Diagnoses Current use of anticoagulant therapy Z79.01 Results AMB INR Fingerstick AMB INR Fingerstick 3.1 Last Edit by Zahra Sanchez RN on 01/28/25 14:19 manual entry AMB INR Fingerstick AMB INR Fingerstick 3.2 Last Edit by Zahra Sanchez RN on 01/28/25 14:20 manual entry Assessment & Plan Assessment & Plan (1) Current use of anticoagulant therapy: Onset Date: Code(s): Z79.01 - shelter (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
== END 2025-01-28 16:29 | disposition home or self-care (01) ==
LOC: HO.ACS 14:11
PROVIDERS: PCP Internal Medicine; Visit Provider Internal Medicine Medical Oncology
DX: Z79.01 Long term (current) use of anticoagulants (principal)

== ENCOUNTER → 2025-01-28 14:11 | Outpatient (BNVA) | payer OTHER, SELFPAY | PROVIDERS: PCP Internal Medicine; Visit Provider Internal Medicine Medical Oncology | DX: I26.99 Other pulmonary embolism without acute cor pulmonale (principal); Z79.01 Long term (current) use of anticoagulants; Z51.81 Encounter for therapeutic drug level monitoring | CPT/HCPCS: 85610; 99211 ==

== ENCOUNTER → 2025-01-29 13:25 | Outpatient (BNV) | payer OTHER, SELFPAY | PROVIDERS: PCP Internal Medicine; Visit Provider Radiology Diagnostic Radiology | DX: D18.03 Hemangioma of intra-abdominal structures (principal); N28.1 Cyst of kidney, acquired | CPT/HCPCS: 74183 ==

== ENCOUNTER 2025-01-29 13:31 | Outpatient (REF) | payer OTHER, SELFPAY ==
--- NOTE | ~2025-01-29 | MR_ITS ---
EXAMINATION: MR ABDOMEN WITHOUT THEN WITH IV CONTRAST HISTORY: F/U hepatic masses, R renal lesion- CT A/P 01/15. COMPARISON: Comparison is made with the prior examination dated 11/28/2014. Correlation is also made with a CT of the abdomen and without contrast dated 01/15/2025. TECHNIQUE: Axial in and out of phase T1-weighted gradient echo, axial diffusion weighted, and axial and coronal HASTE T2 with fat saturation images were obtained through the abdomen. Subsequently, fat suppressed axial and coronal T1-weighted images were obtained after the intravenous administration of 6.5 mL Gadavist. FINDINGS: Liver: There is no loss of signal intensity in the liver on opposed phase imaging to suggest steatosis. There are multiple T2 hyperintense masses scattered throughout the liver including a 1.7 cm mass in segment IV, a 1.7 cm mass in segment VII, a 9 mm mass in segment II, a 1.2 cm mass in segment V, a 1.2 cm mass more inferiorly in segment V, and a 1.4 cm mass in segment . All but the 9 mm mass in segment II demonstrate peripheral enhancement with fill-in over time, highly suggestive of hemangiomas. The 9 mm mass in segment II does not enhance, consistent with a cyst The hepatic and portal veins are patent. There is no intra- or extrahepatic biliary dilatation. Gallbladder: No gallstones are identified. Spleen: The spleen is unremarkable. Pancreas: The pancreas is unremarkable. The pancreatic duct is normal in caliber. Adrenals: The adrenal glands are unremarkable. Kidneys: There is a 1.6 cm cyst at the lower pole of the right kidney. Additional smaller cysts are seen in both kidneys. There is no hydronephrosis. Lymph nodes: There is no retroperitoneal lymphadenopathy in the upper abdomen. Fluid: There is no ascites in the upper abdomen. Visualized bowel: The visualized bowel loops are unremarkable in appearance. Visualized bones: The visualized bones demonstrate normal marrow signal intensity. MR/MR abdomen wo/w con IMPRESSION: 1. Multiple hepatic hemangiomas as described. 2. Multiple bilateral renal cysts as described Electronically signed by: Ghulam Fletcher MD 01/29/2025 03:28 PM EDT
[2025-01-29] MEDS: gadobutroL 7.5 ML VIAL IVPUSH (14:33)
== END 2025-01-29 13:32 | disposition home or self-care (01) ==
LOC: HO.MRI 13:31
PROVIDERS: PCP Internal Medicine; Visit Provider Nurse Practitioner Family
DX: R16.0 Hepatomegaly, not elsewhere classified (principal)
CPT/HCPCS: 74183; A9585

== ENCOUNTER 2025-02-12 13:54 | Outpatient (AMB) | payer OTHER, SELFPAY ==
--- NOTE | 2025-02-12 14:05 | MHC.OFFVISCO ---
Intake Intake Visit Reasons: Anticoagulation Allergies Penicillins [PENICILLINS] Adverse Reaction (Unknown, Verified 02/12/25 14:00) Agitation ANTIBIOTIC X2 Allergy (Unknown, Uncoded 02/12/25 14:00) PT UNSURE OF NAMES Medication List - Last Reconciled 02/12/25 by Fidelina Tiwari, RN diphenhydramine HCl (Benadryl Allergy) 25 mg (10 mL) PO Q8H PRN escitalopram oxalate 10 mg PO lorazepam 0.5 mg PO TID PRN metoprolol succinate ER 25 mg PO DAILY morphine 10 mg (5 mL) PO Q6H PRN ondansetron 4 mg PO Q6-8H PRN warfarin 5 mg See Protocol PO DAILY Nursing Note INR 3.6-?? out of therapeutic range of 2.5-3.5 Medications and supplements reviewed Patient status: pt s/p cold s/s, getting better, taking honey cough drops Medications or supplements: no changes Diet: appetite good Denies any signs and symptoms of bleeding or clotting or unusual bruising Bleeding, bruising, clotting discussed Nutritional guidance given: eat a green today and tomm Dose: 5mg x 3, 2.5mg x4 F/U INR Date : 2 weeks Patient verbalizing understanding of instructions given. pt s/p MRI- awaiting results Anti-Coag Initial Assessment Social Hx Patient Tobacco Use Status: Never used Tobacco alcohol intake: never Alcohol intake frequency: does not drink Coding Level of Care Code Est Patient Level 1 Diagnoses Current use of anticoagulant therapy Z79.01 Assessment & Plan Assessment & Plan (1) Current use of anticoagulant therapy: Onset Date: ~2006 Code(s): Z79.01 - [facility] (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
[2025-02-12 14:06] LABS: Prothrombin Time Whole Bld POC 43.7 sec (11.1-13.5); ~PT, ~INR - Anti Coag Clinic 3.6 (0.9-1.1)
== END 2025-02-12 14:16 | disposition home or self-care (01) ==
LOC: HO.ACS 13:54
PROVIDERS: PCP Internal Medicine; Visit Provider Internal Medicine Medical Oncology
DX: Z79.01 Long term (current) use of anticoagulants (principal)

== ENCOUNTER → 2025-02-12 13:54 | Outpatient (BNVA) | payer OTHER, SELFPAY | PROVIDERS: PCP Internal Medicine; Visit Provider Internal Medicine Medical Oncology | DX: I26.99 Other pulmonary embolism without acute cor pulmonale (principal); Z79.01 Long term (current) use of anticoagulants; Z51.81 Encounter for therapeutic drug level monitoring | CPT/HCPCS: 85610; 99211 ==

== ENCOUNTER 2025-02-26 13:11 | Outpatient (AMB) | payer OTHER, SELFPAY ==
--- NOTE | 2025-02-26 13:20 | MHC.OFFVISCO ---
Intake Intake Visit Reasons: Anticoagulation Allergies Penicillins [PENICILLINS] Adverse Reaction (Unknown, Verified 02/26/25 13:16) Agitation ANTIBIOTIC X2 Allergy (Unknown, Uncoded 02/26/25 13:16) PT UNSURE OF NAMES Medication List - Last Reconciled 02/26/25 by Fidelina Tiwari, RN diphenhydramine HCl (Benadryl Allergy) 25 mg (10 mL) PO Q8H PRN escitalopram oxalate 10 mg PO lorazepam 0.5 mg PO TID PRN metoprolol succinate ER 25 mg PO DAILY morphine 10 mg (5 mL) PO Q6H PRN ondansetron 4 mg PO Q6-8H PRN warfarin 5 mg See Protocol PO DAILY Nursing Note INR: 3.3- in therapeutic range 2.5-3.5 Medications and supplements reviewed- no changes No changes in health, diet, medications, or supplements, Denies any signs and symptoms of bleeding or bruising or clotting. Bleeding, bruising, clotting discussed Nutritional guidance given Dose: 5mg x 3, 2.5mg x 4 F/U INR: 3 weeks Patient verbalizes understanding of instructions given Anti-Coag Initial Assessment Social Hx Patient Tobacco Use Status: Never used Tobacco alcohol intake: never Alcohol intake frequency: does not drink Coding Level of Care Code Est Patient Level 1 Diagnoses Current use of anticoagulant therapy Z79.01 Assessment & Plan Assessment & Plan (1) Current use of anticoagulant therapy: Onset Date: ~2006 Code(s): Z79.01 - senior care (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
[2025-02-26 13:21] LABS: Prothrombin Time Whole Bld POC 39.3 sec (11.1-13.5); ~PT, ~INR - Anti Coag Clinic 3.3 (0.9-1.1)
== END 2025-02-26 13:27 | disposition home or self-care (01) ==
LOC: HO.ACS 13:11
PROVIDERS: PCP Internal Medicine; Visit Provider Internal Medicine Medical Oncology
DX: Z79.01 Long term (current) use of anticoagulants (principal)

== ENCOUNTER → 2025-02-26 13:11 | Outpatient (BNVA) | payer OTHER, SELFPAY | PROVIDERS: PCP Internal Medicine; Visit Provider Internal Medicine Medical Oncology | DX: I26.99 Other pulmonary embolism without acute cor pulmonale (principal); Z79.01 Long term (current) use of anticoagulants; Z51.81 Encounter for therapeutic drug level monitoring | CPT/HCPCS: 85610; 99211 ==

== ENCOUNTER 2025-03-19 14:04 | Outpatient (AMB) | payer OTHER, SELFPAY ==
[2025-03-19 14:34] LABS: Prothrombin Time Whole Bld POC 30.8 sec (11.1-13.5); ~PT, ~INR - Anti Coag Clinic 2.6 (0.9-1.1)
--- NOTE | 2025-03-19 14:40 | MHC.OFFVISCO ---
Intake Intake Visit Reasons: Anticoagulation Allergies Penicillins (PENICILLINS) Adverse Reaction (Unknown, Verified 03/19/25 14:29) Agitation ANTIBIOTIC X2 Allergy (Unknown, Uncoded 02/26/25 13:16) PT UNSURE OF NAMES Medication List - Last Reconciled 03/19/25 by Lanette Lee RN diphenhydramine HCl (Benadryl Allergy) 25 mg (10 mL) PO Q8H PRN escitalopram oxalate 10 mg PO lorazepam 0.5 mg PO TID PRN metoprolol succinate ER 25 mg PO DAILY morphine 10 mg (5 mL) PO Q6H PRN ondansetron 4 mg PO Q6-8H PRN warfarin 5 mg See Protocol PO DAILY Nursing Note NO CP,SOB,DIET/MED CHANGES,FALLS OR SX OF BLEEDING. CONTINUE PRESENT DOSE AND FOLLOW-UP IN 4 WEEKS GOOD UNDERSTANDING OF DOSING INSTR. Anti-Coag Initial Assessment Social Hx Patient Tobacco Use Status: Never used Tobacco alcohol intake: never Alcohol intake frequency: does not drink Coding Level of Care Code Est Patient Level 1 Diagnoses Current use of anticoagulant therapy Z79.01 Results AMB INR Fingerstick AMB INR Fingerstick 2.6 Last Edit by Lanette Lee RN on 03/19/25 14:34 Assessment & Plan Assessment & Plan (1) Current use of anticoagulant therapy: Onset Date: ~2006 Code(s): Z79.01 - [facility] (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
--- OUTSIDE RECORDS SUMMARY | 2025-03-19 14:41 | XMS_ITS | Patient Health Record ---
Author Organization [facility] Address [address] [place] [address] Care Team Providers Care Director Of Rehabilitative Services Name Role Phone Arnie Bhatia MD Primary Care Provider Ghulam Portillo [phone] Allergies Allergen (clinical drug ingredient) Drug/Non Drug Allergy documented on EMR Reaction Allergy Type Onset Date Status metronidazole Metronidazole Unknown Drug Allergy Active levofloxacin Levofloxacin Unknown Drug Allergy A ctive Reason For Referral No Information Medications Medication SIG (Take, Route, Frequency, Duration) Notes Start Date End Date Status Colyte with Flavor Packs 227.1 GM As directed Orally As directed for 1 day(s) 08/09/2013 Active Warfarin Sodium 5mg Active Paxil 10mg Active Problems Problem Type SNOMED Code ICD Code Onset Dates Problem Status W/U Status Risk Notes Problem Computed tomography of abdomen abnormal (finding) ([id number] 9107) Abnormal computed tomography of gastrointestinal tract (793.4) Active confirmed Plan Of Treatment Future Test Test Name Order Date COLONOSCOPY 08/09/2013 Insurance Providers Payer Name Payer Address Payer Phone Subscriber Number Group Number Insured Name Patient Relationship to Insured Coverage Start Date Coverage End Date [facility] [address] [address] [place], [place] [phone] [id number] JONNATHAN WALTON Self - patient is the insured Medical (General) History Medical History History ICD Code Anxiety Endometrial cancer diagnosed in 10/2012--Laparoscopic ANNEMARIE by Dr. Garrison Garza at [facility] in 11/2012--Stage I--had complications with bleeding and required 5 units of PRBC's, and then had surgery in 02/2013 for a prolapse of intestines through the vaginal cuff Denies [place],DM,CVA,Lung disease,renal dise ase On Coumadin for Pulmonary em boli after the surgery in 11/2012 and in 2007--Antiphospholipid antibody syndrome--sees Dr. Mclaughlin Surgical History Surgery Date(Month/Year) ANNEMARIE for cancer as above Repair of vaginal cuff in 02/2013 for pro lapsed intestines Melanoma on back in 2010
== END 2025-03-19 14:42 | disposition home or self-care (01) ==
LOC: HO.ACS 14:04
PROVIDERS: PCP Internal Medicine; Visit Provider Internal Medicine Medical Oncology
DX: Z79.01 Long term (current) use of anticoagulants (principal)

== ENCOUNTER → 2025-03-19 14:04 | Outpatient (BNVA) | payer OTHER, SELFPAY | PROVIDERS: PCP Internal Medicine; Visit Provider Internal Medicine Medical Oncology | DX: Z79.01 Long term (current) use of anticoagulants (principal) | CPT/HCPCS: 85610; 99211 ==

== ENCOUNTER 2025-04-16 14:08 | Outpatient (AMB) | payer OTHER, SELFPAY ==
[2025-04-16 14:14] LABS: Prothrombin Time Whole Bld POC 39.5 sec (11.1-13.5); ~PT, ~INR - Anti Coag Clinic 3.3 (0.9-1.1)
--- NOTE | 2025-04-16 14:17 | MHC.OFFVISCO ---
Intake Intake Visit Reasons: Anticoagulation Allergies Penicillins (PENICILLINS) Adverse Reaction (Unknown, Verified 04/16/25 14:09) Agitation ANTIBIOTIC X2 Allergy (Unknown, Uncoded 04/16/25 14:09) PT UNSURE OF NAMES Medication List - Last Reconciled 04/16/25 by Gertrude Cadena RN diphenhydramine HCl (Benadryl Allergy) 25 mg (10 mL) PO Q8H PRN escitalopram oxalate 10 mg PO lorazepam 0.5 mg PO TID PRN metoprolol succinate ER 25 mg PO DAILY morphine 10 mg (5 mL) PO Q6H PRN ondansetron 4 mg PO Q6-8H PRN warfarin 5 mg See Protocol PO DAILY Nursing Note INR: 3.3 in therapeutic range 2.5-3.5 Medications and supplements reviewed No changes in health, diet, medications, or supplements, Denies any signs and symptoms of bleeding or bruising or clotting. Bleeding, bruising, clotting discussed Nutritional guidance given Dose: 2.5mg X 4 days and 5mg X 3 days (//) F/U INR: 4 weeks Patient verbalizes understanding of instructions given Anti-Coag Initial Assessment Social Hx Patient Tobacco Use Status: Never used Tobacco alcohol intake: never Alcohol intake frequency: does not drink Coding Level of Care Code Est Patient Level 1 Diagnoses Current use of anticoagulant therapy Z79.01 Results AMB INR Fingerstick AMB INR Fingerstick 3.3 Last Edit by Gertrude Cadena RN on 04/16/25 14:13 interface delay Assessment & Plan Assessment & Plan (1) Current use of anticoagulant therapy: Onset Date: ~2006 Code(s): Z79.01 - [employer] (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
== END 2025-04-16 14:20 | disposition home or self-care (01) ==
LOC: HO.ACS 14:08
PROVIDERS: PCP Internal Medicine; Visit Provider Internal Medicine Medical Oncology
DX: Z79.01 Long term (current) use of anticoagulants (principal)

== ENCOUNTER → 2025-04-16 14:08 | Outpatient (BNVA) | payer OTHER, SELFPAY | PROVIDERS: PCP Internal Medicine; Visit Provider Internal Medicine Medical Oncology | DX: I26.99 Other pulmonary embolism without acute cor pulmonale (principal); Z79.01 Long term (current) use of anticoagulants; Z51.81 Encounter for therapeutic drug level monitoring | CPT/HCPCS: 85610; 99211 ==

== ENCOUNTER 2025-05-14 14:12 | Outpatient (AMB) | payer OTHER, SELFPAY ==
--- NOTE | 2025-05-14 14:19 | MHC.OFFVISCO ---
Intake Intake Visit Reasons: Anticoagulation Allergies Penicillins (PENICILLINS) Adverse Reaction (Unknown, Verified 05/14/25 14:15) Agitation ANTIBIOTIC X2 Allergy (Unknown, Uncoded 05/14/25 14:15) PT UNSURE OF NAMES Medication List - Last Reconciled 05/14/25 by Fidelina Tiwari RN diphenhydramine HCl (Benadryl Allergy) 25 mg (10 mL) PO Q8H PRN escitalopram oxalate 10 mg PO lorazepam 0.5 mg PO TID PRN metoprolol succinate ER 25 mg PO DAILY morphine 10 mg (5 mL) PO Q6H PRN ondansetron 4 mg PO Q6-8H PRN warfarin 5 mg See Protocol PO DAILY Nursing Note INR: 2.6- in therapeutic range 2.5-3.5 Medications and supplements reviewed- no changes No changes in health, diet, medications, or supplements, Denies any signs and symptoms of bleeding or bruising or clotting. Bleeding, bruising, clotting discussed Nutritional guidance given Dose: 5mg x 3, 2.5mg x 4 F/U INR: 2 weeks Patient verbalizes understanding of instructions given Anti-Coag Initial Assessment Social Hx Patient Tobacco Use Status: Never used Tobacco alcohol intake: never Alcohol intake frequency: does not drink Coding Level of Care Code Est Patient Level 1 Diagnoses Current use of anticoagulant therapy Z79.01 Results AMB INR Fingerstick AMB INR Fingerstick 2.6 Last Edit by Fidelina Tiwari RN on 05/14/25 14:22 interface delay Assessment & Plan Assessment & Plan (1) Current use of anticoagulant therapy: Onset Date: ~2006 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
--- OUTSIDE RECORDS SUMMARY | 2025-05-14 15:12 | XMS_ITS | Patient Health Record ---
Author Organization [facility] Address [address] [place] [address] Care Team Providers Care Supervisory Training Specialist Name Role Phone Arnie Bhatia MD Primary Care Provider Ghulam Portillo [phone] Allergies Allergen (clinical drug ingredient) Drug/Non Drug [...] Problem Status W/U Status Risk Notes Problem Abnormal compute d tomography of gastrointestinal tract (793.4) Active confirmed Plan Of Treatment Future Test Test Name Order Date COLONOSCOPY 08/09/2013 Insurance Providers Payer Name Payer Address Payer Phone Subscriber Number Group Number Insured Name Patient Relationship to Insured Coverage Start Date Coverage End Date [facility] [address] [address] [place], [place] [id number] JONNATHAN WALTON Self - patient is the insured Medical (General) History Medical History History ICD Code Anxiety Endometrial cancer diagnosed in 10/2012--Laparoscopic ANNEMARIE by Dr. Garrison Garza at [facility] in 11/2012--Stage I--had complications with bleeding and required 5 units of PRBC's, and then had surgery in 02/2013 for a prolapse of intestines through the vaginal cuff Denies [place],DM,CVA,Lung disease,renal dise ase On Coumadin for Pulmonary em boli after the surgery in 11/2012 and in 2007--Antiphospholipid antibody syndrome--sees Dr. Mclaughlin Surgical History Surgery Date(Month/Year) ANNEMARIE for cancer as above Repair of vaginal cuff in 02/2013 for pro lapsed intestines Melanoma on back in 2010
--- OUTSIDE RECORDS SUMMARY | 2025-05-14 15:12 | XMS_ITS ---
Author Name Jey Barillas Address Unknown Organization [facility] Care Team Providers Care Tester Electronic Scale Name Role Phone Unavailable Primary Care Physician Unavailab le History Of Present Illness This is a 70 year old female who is an established patient who is being seen for an evaluation of skin lesions.Location: body throughoutPertinent History: melanoma (see interval history) and family history of melanoma (Sister)Pertinent Negatives: no family history of non-melanoma skin cancerAdditional Visit Reasons: evaluation for suspicious growthsPatients concerns today consist of: - none Medications Medication Generic Name RxNorm Strength Strength Unit Route Dose Dose Form Frequency Date Started Date Ended Status Indication Sig ketoconazol e ketocona zole 127510 2 % Topica l cream 04/26/20 21 suspend ed Appl y thin laye r to affe cted area on lowe r abdo men and unde r rajendra sts twic e katherine y unti l reso lved Lexapro escitalo pram oxalate 10 mg Oral table t active metoprolol succinate metoprol ol succinat e Oral active Paxil 10 mg/5 mL Oral suspe nsion suspend ed warfarin 5 mg Oral table t active Coumadin warfarin active Paxil paroxeti ne HCl suspend ed Problems Problem Code Type Status Date of Diagnosis Date of Resolution History of malignant melanoma of the skin (situation) 91570078611 8(SNOMED) Diagnosis active 05/09/2025 Skin changes due to chronic exposure to non-ionizing radiation (disorder) 681958911(S NOMED) Diagnosis active 05/09/2025 Melanocytic nevus of trunk (disorder) 221657562(S NOMED) Diagnosis active 05/09/2025 Seborrheic keratosis (disorder) 423323707(S NOMED) Diagnosis active 05/09/2025 Hemangioma of skin and subcutaneous tissue (disorder) 523469855(S NOMED) Diagnosis active 05/09/2025 Benign neoplasm of skin (disorder) 03519332(SN OMED) Diagnosis active 05/09/2025 Benign neoplasm of skin of left upper limb (disorder) 06191408133 72423(SNOME D) Diagnosis active 05/02/2024 Hemangioma of skin and subcutaneous tissue (disorder) 026967243(S NOMED) Diagnosis active 05/02/2024 Melanocytic nevus of skin (disorder) 454463202(S NOMED) Diagnosis active 05/02/2024 Melanocytic nevus (disorder) 199024770(S NOMED) Diagnosis active 05/02/2024 Seborrheic keratosis (disorder) 966137107(S NOMED) Diagnosis active 05/02/2024 Skin changes due to chronic exposure to non-ionizing radiation (disorder) 617934760(S NOMED) Diagnosis active 05/02/2024 Benign neoplasm of skin of left upper limb (disorder) 45658190976 14346(SNOME D) Diagnosis active 03/09/2023 History of malignant melanoma of the skin (situation) 86279304116 8(SNOMED) Diagnosis active 03/09/2023 Melanocytic nevus of trunk (disorder) 012753254(S NOMED) Diagnosis active 03/09/2023 Melanocytic nevus of skin (disorder) 401016497(S NOMED) Diagnosis active 03/09/2023 Skin changes due to chronic exposure to non-ionizing radiation (disorder) 074188916(S NOMED) Diagnosis active 03/09/2023 Seborrheic keratosis (disorder) 618245688(S NOMED) Diagnosis active 08/17/2022 Epidermoid cyst of skin (disorder) 305329650(S NOMED) Diagnosis active 08/17/2022 Hemangioma of skin and subcutaneous tissue (disorder) 454076255(S NOMED) Diagnosis active 03/08/2022 Inflamed seborrheic keratosis (disorder) 270463127(S NOMED) Diagnosis active 03/08/2022 Melanocytic nevus of trunk (disorder) 227745812(S NOMED) Diagnosis active 03/08/2022 Melanocytic nevus of skin (disorder) 599523983(S NOMED) Diagnosis active 03/08/2022 History of malignant melanoma of the skin (situation) 46909947365 8(SNOMED) Diagnosis active 03/08/2022 Seborrheic keratosis (disorder) 005444640(S NOMED) Diagnosis active 03/08/2022 Skin changes due to chronic exposure to non-ionizing radiation (disorder) 597017908(S NOMED) Diagnosis active 03/08/2022 Intertrigo (disorder) 76414763(SN OMED) Diagnosis active 04/26/2021 Hemangioma of skin and subcutaneous tissue (disorder) 644519154(S NOMED) Diagnosis active 04/26/2021 Hypopigmentation of skin (disorder) 67487489(SN OMED) Diagnosis active 04/26/2021 Seborrheic keratosis (disorder) 540586483(S NOMED) Diagnosis active 04/26/2021 Epidermoid cyst of skin (disorder) 402539670(S NOMED) Diagnosis active 04/26/2021 Inflamed seborrheic keratosis (disorder) 503954244(S NOMED) Diagnosis active 04/26/2021 History of malignant neoplasm of skin (situation) 512447994(S NOMED) Diagnosis active 04/26/2021 Melanocytic nevus of trunk (disorder) 941901713(S NOMED) Diagnosis active 04/26/2021 Melanocytic nevus of face (disorder) 798796222(S NOMED) Diagnosis active 04/26/2021 Melanocytic nevus of skin (disorder) 368766509(S NOMED) Diagnosis active 04/26/2021 History of malignant melanoma of the skin (situation) 38789438234 8(SNOMED) Diagnosis active 04/26/2021 Other specified dermatitis L30.8(ICD-1 0) Diagnosis active 11/01/2016 Melanocytic nevi, unspecified D22.9(ICD-1 0) Diagnosis active 10/19/2016 Family history of malignant neoplasm of other organs or systems Z80.8(ICD-1 0) Diagnosis active 10/19/2016 Other melanin hyperpigmentation L81.4(ICD-1 0) Diagnosis active 10/19/2016 Inflamed seborrheic keratosis L82.0(ICD-1 0) Diagnosis active 10/19/2016 Other seborrheic keratosis L82.1(ICD-1 0) Diagnosis active 10/19/2016 Melanocytic nevi of trunk D22.5(ICD-1 0) Diagnosis active 10/19/2016 Personal history of malignant melanoma of skin Z85.820(ICD -10) Diagnosis active 10/19/2016 Other skin changes due to chronic exposure to nonionizing radiation L57.8(ICD-1 0) Diagnosis active 10/19/2016 Hemangioma of skin and subcutaneous tissue D18.01(ICD- 10) Diagnosis active 10/19/2016 Erythema intertrigo L30.4(ICD-1 0) Diagnosis active 10/19/2016 Other melanin hyperpigmentation L81.4(ICD-1 0) Diagnosis active 10/01/2015 Melanocytic nevi of trunk D22.5(ICD-1 0) Diagnosis active 10/01/2015 Other seborrheic keratosis L82.1(ICD-1 0) Diagnosis active 10/01/2015 Other skin changes due to chronic exposure to nonionizing radiation L57.8(ICD-1 0) Diagnosis active 10/01/2015 Personal history of malignant melanoma of skin Z85.820(ICD -10) Diagnosis active 10/01/2015 Melanocytic nevi, unspecified D22.9(ICD-1 0) Diagnosis active 10/01/2015 Inflamed seborrheic keratosis L82.0(ICD-1 0) Diagnosis active 10/01/2015 Melanocytic nevi of trunk D22.5(ICD-1 0) Diagnosis active 12/10/2014 Inflamed seborrheic keratosis L82.0(ICD-1 0) Diagnosis active 12/10/2014 Personal history of malignant melanoma of skin Z85.820(ICD -10) Diagnosis active 09/26/2014 Inflamed seborrheic keratosis L82.0(ICD-1 0) Diagnosis active 09/26/2014 Intrinsic (allergic) eczema L20.84(ICD- 10) Diagnosis active 09/26/2014 Melanocytic nevi of trunk D22.5(ICD-1 0) Diagnosis active 09/26/2014 Other seborrheic keratosis L82.1(ICD-1 0) Diagnosis active 09/26/2014 Other skin changes due to chronic exposure to nonionizing radiation L57.8(ICD-1 0) Diagnosis active 09/26/2014 Eczema (disorder) 37267368(SN OMED) Problem active Malignant melanoma (disorder) 705662879(S NOMED) Problem active Malignant melanoma (disorder) 740067878(S NOMED) Problem active Arthritis (disorder) 6025269(SNO MED) Problem active History of clinical finding in subject (situation) 799821576(S NOMED) Problem active Hearing loss (disorder) 53666070(SN OMED) Problem active Anxiety disorder (disorder) 900119495(S NOMED) Problem active Basal cell carcinoma of skin (disorder) 437833409(S NOMED) Problem active Anxiety disorder (disorder) 738183179(S NOMED) Problem active Asthma (disorder) 174193622(S NOMED) Problem active Malignant melanoma (disorder) 394283912(S NOMED) Problem active Anxiety disorder (disorder) 755245946(S NOMED) Problem active Results No data Encounters Service provided at [facility] , [address] [place] [id number]. Office fax number is [phone]. 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) [facility] 05/09/2025 19:38:00 [facility] [id number] Reason For Referral No data Procedures Procedure Date Cryotherapy of skin lesion with liquid n itrogen (procedure) 03/08/2022 12:00 am UTC Cryotherapy of skin lesion with liquid n itrogen (procedure) 04/26/2021 12:00 am [place] Hysterectomy (procedure) 11/02/2016 12:0 0 am UTC Hysterectomy (procedure) 10/20/2016 12:0 0 am UTC Documentation of past medical history (p rocedure) Documentation of past medical history (p rocedure) Documentation of past medical history (p rocedure) Documentation of past medical history (p rocedure) Documentation of past medical history (p rocedure) Documentation of past medical history (p rocedure) Documentation of past medica l history (procedure) Hysterectomy, Hysterectomy (procedure) Review Of Systems No Data Assessment 1.History of malignant melanomaCounseling2.DermatoheliosisCounseling3.Congenital NevusCounseling4.Seborrheic KeratosesCounseling5.Castillo AngiomasCounseling6.Seborrheic KeratosisCounselingPointed Out by PatientPhoto-Documentation:.7.AngiokeratomaCounseling Plan of Care Future visit for 05/09/2026 - Follow up in 1 year for: Skin Check - 15 minutes Code Detail Instructions 426159 ketoconazole 2 % topical cream A pply thin layer to affected area on lower abdomen and under breasts twice daily until resolved 0283865 triamcinolone aceton kelly 0.1 % topical cream Apply twice daily to rash areas as needed. Do not use on face Instructions * I counseled the patient regarding the following:Yearly skin exams * I counseled the patient regarding the following:Dermatoheliosis is photo-aging from sun exposure. It manifests as pigmentation, wrinkles and thinning of the skin. Sun damage can be prevented and evenimproved by careful use of sun- protective clothing and sunscreen. Sunlight also allows the skin to make vitamin D: if you are careful about sun exposure, I recommend you take at least 5854-4869 U of vitamin D3 daily.I recommended the following: Broad Spectrum Sunscreen SPF 30+ * I counseled the patient regarding the following:Instructions: Monthly self- skin checks to monitor for any changes in moles are recommended.Expectations: Congenital Nevus are pigmented nests of cells within the skin. No treatment is necessary.Contact Office if: Any moles change in size, shape or color; itch, burn or bleed. * I counseled the patient regarding the following:Seborrheic Keratoses are benign warty growths. Patients get more of them as they age. The main risk associated with these is that they can resemble skin cancers, and vice versa. No treatment is necessary. * I counseled the patient regarding the following:Castillo Angiomas are benign vascular growths. No treatment is necessary. Castillo Angiomas can be treated with lasers or electrodesiccation, but this is usually cosmetic and for most people not worth the cost. * I counseled the patient regarding the following:Seborrheic Keratoses are benign warty growths. Patients get more of them as they age. The main risk associated with these is that they can resemble skin cancers, and vice versa. No treatment is necessary. * I counseled the patient regarding the following:Skin care: Angiokeratomas do not require treatment.They can be removed surgically, through eletrodessication, or laser.Expectations: Angiokeratoma arebenign, vascular tumors characterized by a keratotic surface. Social History Code Activity Start Date End Date [id number] (SNOMED) Never smoker Sex female Vital Signs No data
[2025-05-15 08:08] LABS: Prothrombin Time Whole Bld POC 31.5 sec (11.1-13.5); ~PT, ~INR - Anti Coag Clinic 2.6 (0.9-1.1)
== END 2025-05-14 14:27 | disposition home or self-care (01) ==
LOC: HO.ACS 14:12
PROVIDERS: PCP Internal Medicine; Visit Provider Internal Medicine Medical Oncology
DX: Z79.01 Long term (current) use of anticoagulants (principal)

== ENCOUNTER → 2025-05-14 14:12 | Outpatient (BNVA) | payer OTHER, SELFPAY | PROVIDERS: PCP Internal Medicine; Visit Provider Internal Medicine Medical Oncology | DX: I26.99 Other pulmonary embolism without acute cor pulmonale (principal); Z79.01 Long term (current) use of anticoagulants; Z51.81 Encounter for therapeutic drug level monitoring | CPT/HCPCS: 85610; 99211 ==

== ENCOUNTER → 2025-05-28 15:36 | Outpatient (BNVA) | payer OTHER, SELFPAY | PROVIDERS: PCP Internal Medicine; Visit Provider Internal Medicine Medical Oncology | DX: I26.99 Other pulmonary embolism without acute cor pulmonale (principal); Z79.01 Long term (current) use of anticoagulants; Z51.81 Encounter for therapeutic drug level monitoring | CPT/HCPCS: 85610; 99211 ==

== ENCOUNTER 2025-07-07 14:53 | Outpatient (AMB) | payer OTHER, SELFPAY ==
[2025-07-07 14:58] LABS: Prothrombin Time Whole Bld POC 38.4 sec (11.1-13.5); ~PT, ~INR - Anti Coag Clinic 3.2 (0.9-1.1)
--- NOTE | 2025-07-07 14:59 | MHC.OFFVISCO ---
Intake Intake Visit Reasons: Anticoagulation Allergies Penicillins (PENICILLINS) Adverse Reaction (Unknown, Verified 07/07/25 14:54) Agitation ANTIBIOTIC X2 Allergy (Unknown, Uncoded 07/07/25 14:54) PT UNSURE OF NAMES Medication List - Last Reconciled 07/07/25 by Gertrude Cadena, RN diphenhydramine HCl (Benadryl Allergy) 25 mg (10 mL) PO Q8H PRN escitalopram oxalate 10 mg PO lorazepam 0.5 mg PO TID PRN metoprolol succinate ER 25 mg PO DAILY morphine 10 mg (5 mL) PO Q6H PRN ondansetron 4 mg PO Q6-8H PRN warfarin 5 mg See Protocol PO DAILY Nursing Note INR: 3.2 in therapeutic range of 2.5-3.5 Medications and supplements reviewed No changes in health, diet, medications, or supplements, Denies any signs and symptoms of bleeding or bruising or clotting. 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
--- OUTSIDE RECORDS SUMMARY | 2025-07-07 19:05 | XMS_ITS | Patient Health Record ---
Author Organization [facility] Address [address] [place] [address] Care Team Providers Care Tube Skiver Name Role Phone Arnie Bhatia MD Primary Care Provider Ghulam Portillo [phone] Allergies Allergen (clinical drug ingredient) Drug/Non Drug Allergy documented on EMR Reaction Allergy Type Onset Date Status metronidazole Metronidazole Unknown Drug Allergy Active levofloxacin Levofloxacin Unknown Drug Allergy A ctive Reason For Referral No Information Medications Medication SIG (Take, Route, Frequency, Duration) Notes Start Date End Date Status Colyte with Flavor Packs 227.1 GM As directed Orally As directed; Duration: 1 day(s) 08/09/2013 Active Warfarin Sodium 5mg Active Paxil 10mg Active Problems Problem Type SNOMED Code ICD Code Onset Dates Problem Status W/U Status Risk Notes Problem Computed tomography of abdomen abnormal (finding) (4091579531781 9107) Abnormal computed tomography of gastrointestinal tract (793.4) Active confirmed Plan Of Treatment Future Test Test Name Order Date COLONOSCOPY 08/09/2013 Insurance Providers Payer Name Payer Address Payer Phone Subscriber Number Group Number Insured Name Patient Relationship to Insured Coverage Start Date Coverage End Date [facility] [address] [address] [place], [place] [id number] JONNATHAN WALTON Self - patient is the insured Medical (General) History Medical History History ICD Code Anxiety Endometrial cancer diagnosed in 10/2012--Laparoscopic ANNEMARIE by Dr. Garrison Garza at [facility] in 11/2012--Stage I--had complications with bleeding and required 5 units of PRBC's, and then had surgery in 02/2013 for a prolapse of intestines through the vaginal cuff Denies ND,DM,CVA,Lung disease,renal dise ase On Coumadin for Pulmonary em boli after the surgery in 11/2012 and in 2007--Antiphospholipid antibody syndrome--sees Dr. Mclaughlin Surgical History Surgery Date(Month/Year) ANNEMARIE for cancer as above Repair of vaginal cuff in 02/2013 for pro lapsed intestines Melanoma on back in 2010
== END 2025-07-07 15:12 | disposition home or self-care (01) ==
LOC: HO.ACS 14:53
PROVIDERS: PCP Internal Medicine; Visit Provider Internal Medicine Medical Oncology
DX: Z79.01 Long term (current) use of anticoagulants (principal)

== ENCOUNTER → 2025-07-07 14:53 | Outpatient (BNVA) | payer OTHER, SELFPAY | PROVIDERS: PCP Internal Medicine; Visit Provider Internal Medicine Medical Oncology | DX: Z86.711 Personal history of pulmonary embolism (principal); Z51.81 Encounter for therapeutic drug level monitoring; Z79.01 Long term (current) use of anticoagulants | CPT/HCPCS: 85610; 99211 ==

== ENCOUNTER 2025-08-04 14:38 | Outpatient (AMB) | payer OTHER, SELFPAY ==
[2025-08-04 14:58] LABS: Prothrombin Time Whole Bld POC 34.7 sec (11.1-13.5); ~PT, ~INR - Anti Coag Clinic 2.9 (0.9-1.1)
--- NOTE | 2025-08-04 15:00 | MHC.OFFVISCO ---
Intake Intake Visit Reasons: Anticoagulation Allergies Penicillins (PENICILLINS) Adverse Reaction (Unknown, Verified 08/04/25 14:54) Agitation ANTIBIOTIC X2 Allergy (Unknown, Uncoded 08/04/25 14:54) PT UNSURE OF NAMES Medication List - Last Reconciled 08/04/25 by Gertrude Cadena, RN diphenhydramine HCl (Benadryl Allergy) 25 mg (10 mL) PO Q8H PRN escitalopram oxalate 10 mg PO lorazepam 0.5 mg PO TID PRN metoprolol succinate ER 25 mg PO DAILY morphine 10 mg (5 mL) PO Q6H PRN ondansetron 4 mg PO Q6-8H PRN warfarin 5 mg See Protocol PO DAILY Nursing Note INR: 2.9 in therapeutic range of 2.5-3.5 Medications and supplements reviewed No changes in health, diet, medications, or supplements, Denies any signs and symptoms of bleeding or bruising or clotting. Bleeding, bruising, clotting discussed Nutritional guidance given Dose: 2.5mg X 4 days and 5mg X 3 days (//) F/U INR: 4 weeks Patient verbalizes understanding of instructions given Anti-Coag Initial Assessment Social Hx Patient Tobacco Use Status: Never used Tobacco alcohol intake: never Alcohol intake frequency: does not drink Coding Level of Care Code Est Patient Level 1 Diagnoses Current use of anticoagulant therapy Z79.01 Results AMB INR Fingerstick AMB INR Fingerstick 2.9 Last Edit by Gertrude Cadena RN on 08/04/25 15:00 interface delay Assessment & Plan Assessment & Plan (1) Current use of anticoagulant therapy: Onset Date: ~2006 Code(s): Z79.01 - prepleater (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
== END 2025-08-04 15:04 | disposition home or self-care (01) ==
LOC: HO.ACS 14:38
PROVIDERS: PCP Internal Medicine; Visit Provider Internal Medicine Medical Oncology
DX: Z79.01 Long term (current) use of anticoagulants (principal)

== ENCOUNTER → 2025-08-04 14:38 | Outpatient (BNVA) | payer OTHER, SELFPAY | PROVIDERS: PCP Internal Medicine; Visit Provider Internal Medicine Medical Oncology | DX: Z79.01 Long term (current) use of anticoagulants (principal) | CPT/HCPCS: 85610; 99211 ==

== ENCOUNTER 2025-09-01 14:25 | Outpatient (AMB) | payer OTHER, SELFPAY ==
[2025-09-01 14:31] LABS: Prothrombin Time Whole Bld POC 38.3 sec (11.1-13.5); ~PT, ~INR - Anti Coag Clinic 3.2 (0.9-1.1)
--- NOTE | 2025-09-01 14:33 | MHC.OFFVISCO ---
Intake Intake Visit Reasons: Anticoagulation Allergies Penicillins (PENICILLINS) Adverse Reaction (Unknown, Verified 09/01/25 14:27) Agitation ANTIBIOTIC X2 Allergy (Unknown, Uncoded 09/01/25 14:27) PT UNSURE OF NAMES Medication List - Last Reconciled 09/01/25 by Gertrude Cadena, RN diphenhydramine HCl (Benadryl Allergy) 25 mg (10 mL) PO Q8H PRN escitalopram oxalate 10 mg PO lorazepam 0.5 mg PO TID PRN metoprolol succinate ER 25 mg PO DAILY morphine 10 mg (5 mL) PO Q6H PRN ondansetron 4 mg PO Q6-8H PRN warfarin 5 mg See Protocol PO DAILY Nursing Note INR: 3.2 in therapeutic range Medications and supplements reviewed No changes in health, diet, medications, or supplements, Denies any signs and symptoms of bleeding or bruising or clotting. Bleeding, bruising, clotting discussed Nutritional guidance given Dose: 2.5mg X 4 days and 5mg X 3 days (//Mon) F/U INR: 4 weeks Patient verbalizes understanding of instructions given Anti-Coag Initial Assessment Social Hx Patient Tobacco Use Status: Never used Tobacco alcohol intake: never Alcohol intake frequency: does not drink Coding Level of Care Code Est Patient Level 1 Diagnoses Current use of anticoagulant therapy Z79.01 Results AMB INR Fingerstick AMB INR Fingerstick 3.2 Last Edit by Gertrude Cadena, RN on 09/01/25 14:33 interface delay Assessment & Plan Assessment & Plan (1) Current use of anticoagulant therapy: Onset Date: ~2006 Code(s): Z79.01 - long-term (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
--- OUTSIDE RECORDS SUMMARY | 2025-09-01 20:47 | XMS_ITS | Patient Health Record ---
Author Organization [facility] Address [address] [place] [address] Care Team Providers Care Slubber Tender Name Role Phone Arnie Bhatia MD Primary Care Provider Ghulam Portillo [phone] Allergies Allergen (clinical drug ingredient) Drug/Non Drug Allergy documented on EMR Reaction Allergy Type Onset Date Status levofloxacin Levofloxacin Unknown Drug Allergy A ctive metronidazole Metronidazole Unknown Drug Allergy Active Reason For Referral No Information Medications Medication SIG (Take, Route, Frequency, Duration) Notes Start Date End Date Status Colyte with Flavor Packs 227.1 GM Solution Reconstituted As directed Orally As directed; Duration: 1 day(s) 08/09/2013 Active Warfarin Sodium 5mg Active Paxil 10mg Active Social History Social History Additional Details Category Social Info Options Details Miscellaneous: Marital status: Occupation: unemployed Section Notes: Nonsmoker; no alcohol Problems Problem Type SNOMED Code ICD Code Onset Dates Problem Status W/U Status Risk Notes Problem Computed tomography of abdomen abnormal (finding) ([id number] 9107) Abnormal computed tomography of gastrointestinal tract (793.4) Active confirmed Plan Of Treatment Future Test Test Name Order Date COLONOSCOPY 08/09/2013 Insurance Providers Payer Name Payer Address Payer Phone Subscriber Number Group Number Insured Name Patient Relationship to Insured Coverage Start Date Coverage End Date [facility] [address] [address] [place], [place] [id number] JONNATHAN WALTON Self - patient is the insured Medical (General) History Medical History History ICD Code Anxiety Endometrial cancer diagnosed in 10/2012--Laparoscopic ANNEMARIE by Dr. Garrison Garza at [facility] in 11/2012--Stage I--had complications with bleeding and required 5 units of PRBC's, and then had surgery in 02/2013 for a prolapse of intestines through the vaginal cuff Denies AL,DM,CVA,Lung disease,renal dise ase On Coumadin for Pulmonary em boli after the surgery in 11/2012 and in 2007--Antiphospholipid antibody syndrome--sees Dr. Mclaughlin Surgical History Surgery Date(Month/Year) ANNEMARIE for cancer as above Repair of vaginal cuff in 02/2013 for pro lapsed intestines Melanoma on back in 2010
== END 2025-09-01 14:38 | disposition home or self-care (01) ==
LOC: HO.ACS 14:25
PROVIDERS: PCP Internal Medicine; Visit Provider Internal Medicine Medical Oncology
DX: Z79.01 Long term (current) use of anticoagulants (principal)

== ENCOUNTER → 2025-09-01 14:25 | Outpatient (BNVA) | payer OTHER, SELFPAY | PROVIDERS: PCP Internal Medicine; Visit Provider Internal Medicine Medical Oncology | DX: I26.99 Other pulmonary embolism without acute cor pulmonale (principal); Z51.81 Encounter for therapeutic drug level monitoring; Z79.01 Long term (current) use of anticoagulants | CPT/HCPCS: 85610; 99211 ==